=== PATIENT | male | born 1945 | race African-American/Black ===

== ENCOUNTER 2018-09-21 13:35 | Emergency (ER) | payer MEDICARE, MEDICAID ==
[~2018-09-21] VITALS: Ht 182.9 cm; Wt 74.8 kg
--- NOTE | 2018-09-21 13:45 | NUR ---
SAMMI From [facility], WITH SYNCOPAL EPISODE DURING DIALYSIS AND ALOC. TO ER BED 8, HOOKED TO MONITOR, AWAITING MD CLEMENTS.
--- NOTE | 2018-09-21 14:20 | NUR ---
DR. BROWN AT BEDSIDE
[2018-09-21] MEDS ORDERED: IV NS 0.9% 1,000 ML BAG IV ONE (14:30)
[2018-09-21] MEDS ORDERED: ONDANSETRON HCL/PF 4 MG/2 ML VIAL IVP ONE (14:30)
--- NOTE | 2018-09-21 14:35 | NUR ---
CALLED [facility] TO HAVE THEM FAX OVER PT PAPERWORK.
[2018-09-21] MEDS ORDERED: ONDANSETRON HCL/PF 4 MG/2 ML VIAL ONE (14:37)
[2018-09-21 14:38] LABS: BASOPHILS % (AUTO) 0.3 % (0.0-2.0); EOSINOPHILS % (AUTO) 10.8 % (0.0-6.0); HEMATOCRIT 34 % (39-51); HEMOGLOBIN 11.6 g/dL (13.5-17.5); LYMPHOCYTES # (AUTO) 0.9 /CMM (0.8-4.8); LYMPHOCYTES % (AUTO) 15.6 % (20.0-44.0); MEAN CORPUSCULAR HGB CONC 34 g/dl (31.0-36.0); MEAN CORPUSCULAR VOLUME 94 fL (80-96); MONOCYTES # (AUTO) 0.6 /CMM (0.1-1.30); MONOCYTES % (AUTO) 10.7 % (2.0-12.0); NEUTROPHILS # (AUTO) 3.7 /CMM (1.8-8.9); NEUTROPHILS % (AUTO) 62.6 % (43.0-81.0); PLATELET COUNT (AUTO) 230 /CMM (150-450); RED BLOOD CELL COUNT(AUTO) 3.64 MIL/uL (4.5-6.0)
--- NOTE | 2018-09-21 14:53 | NUR ---
URINE SPECIMEN SENT TO LAB
[2018-09-21 15:02] LABS: ALANINE AMINOTRANSFERASE 48 U/L (12-78); ALBUMIN 3.2 g/dL (3.4-5.0); ALKALINE PHOSPHATASE 140 U/L (46-116); ASPARTATE AMINOTRANSFERASE 20 U/L (15-37); BILIRUBIN,DIRECT 0.1 mg/dL (0.0-0.2); BILIRUBIN,TOTAL 0.2 mg/dL (0.2-1.0); CALCIUM, SERUM 8.9 mg/dL (8.5-10.1); CARBON DIOXIDE 30 mmol/L (21-32); CHLORIDE 94 mmol/L (98-107); CREATININE 4.2 mg/dL (0.6-1.3); GLUCOSE 116 mg/dL (74-106); POTASSIUM 3.5 mmol/L (3.5-5.1); SODIUM SERUM 132 mmol/L (136-145); TOTAL PROTEIN, SERUM 7.7 g/dL (6.4-8.2)
[2018-09-21 15:07] LABS: UREA NITROGEN, BLOOD 81 mg/dL (7-18)
[2018-09-21 15:17] LABS: APPEARANCE,URINE Slightly Cloudy (CLEAR); BILIRUBIN,URINE Negative (NEGATIVE); BLOOD, URINE Moderate Ery/uL (NEGATIVE); COLOR,URINE Yellow (YELLOW); KETONES,URINE Negative (NEGATIVE); LEUKOCYTE ESTERASE ,URINE Large (NEGATIVE); NITRITE, URINE Negative (NEGATIVE); PROTEIN,URINE 100 mg/dl (NEGATIVE); UGLUCOSE Negative (NEGATIVE); UROBILINOGEN,URINE 0.2 EU/dL (0.2)
[2018-09-21 15:26] LABS: BACTERIA,URINE Few /HPF (None Seen); MUCUS,URINE Many /LPF (None Seen); SQUAMOUS EPITHELIAL CELL,UR Few /HPF (None Seen); WBC,URINE 81-100 /HPF (0-3)
--- NOTE | 2018-09-21 15:30 | NUR ---
PATIENT TRANSPORTED FOR CT.
--- NOTE | 2018-09-21 15:31 | NUR ---
ELICEO MORGAN (SISTER) CONTACT INFO: [phone]
[2018-09-21] MEDS ORDERED: LEVOFLOXACIN 750 MG /D5W 150ML 150 ML IV ONE (16:48)
[2018-09-21] MEDS ORDERED: HYDROMORPHONE 1 MG/1 ML DISP.SYRIN ONE (16:49)
[2018-09-21] MEDS ORDERED: HYDROMORPHONE INJ 0.5 MG/0.5 ML SYRINGE IV ONE (17:00)
[2018-09-21] MEDS ORDERED: LEVOFLOXACIN 750 MG /D5W 150ML PIGGYBACK IV ONE (17:00)
--- NOTE | 2018-09-21 18:32 | NUR ---
TRANSFER INFO: PT WILL GO TO [facility] VIA [facility] ETA 1900, ACCEPTING MD IS DR AUSTIN CHAMPION. CALL FOR REPORT.
--- NOTE | 2018-09-21 18:43 | NUR ---
REPORT GIVEN TO ROMA JIN OF [facility] ([phone]) EMERGENCY ROOM.
--- NOTE | 2018-09-21 19:17 | NUR ---
REPORT GIVEN TO ANNABEL CAPUTO FOR MEGAN.
--- NOTE | 2018-09-21 19:28 | NUR ---
RECIEVED REPORT FROM ANNABEL HAYNES FOR MEGAN. PT RESTING IN BED WITH EYES OPEN. NO S/S OF ACUTE DISTRESS NOTED. WILL CONITNUE TO MONITOR PT.
--- NOTE | 2018-09-21 19:47 | NUR ---
REPORT GIVEN TO EMS CREW AND RN FOR MEGAN. Patient Tranfers to outside Facility Physician:DR AUSTIN CHAMPION Location:[facility]
[2018-09-21 19:48] VITALS: BP 152/88
== END 2018-09-21 19:50 | disposition short-term general hospital (02) ==
LOC: EDBD 13:37 → ER 13:37
DX: R55 Syncope and collapse (principal); E11.22 Type 2 diabetes mellitus with diabetic chronic kidney disease; N18.6 End stage renal disease; F03.90 Unspecified dementia, unspecified severity, without behavioral disturbance, psychotic disturbance, mood disturbance, and anxiety; N39.0 Urinary tract infection, site not specified; Z99.2 Dependence on renal dialysis; Z93.1 Gastrostomy status; Z86.73 Personal history of transient ischemic attack (TIA), and cerebral infarction without residual deficits
CPT/HCPCS: 36415; 70450; 71045; 74176; 80048; 80076; 81001; 84484; 85025; 87086; 93005; 96361; 96365; 96366; 96375; 99285; A4606; J1170; J1956; J2405; J7030; 81000-TC; 87186-TC

== ENCOUNTER 2019-01-27 14:45 | Emergency (ER) | payer MEDICARE, MEDICAID ==
[~2019-01-27] VITALS: Ht 180.3 cm; Wt 80.3 kg
[2019-01-27] MEDS ORDERED: IV NS 0.9% 500 ML BAG IV ONE (15:00)
--- NOTE | 2019-01-27 15:00 | NUR ---
KAVITHA KRAMER FROM HD CENTER. PT HAD APPROX 1 HR OF HD WHEN HE WENT HYPOTENSIVE. PT IS AA&O AND IS ABLE TO NOD HIS HEAD TO YES AND NO QUESTIONS. PT IS NON VERBAL. PT HAS A DECUB ON THE COCCYX AND ON THE RT BUTTOCK. PT HAS A GTUBE AND RUE FISTULA. PT HAS BILATERAL HEEL PROTECTORS. PT HAS A TRACH TO ARESOLE @ 4L. PT IS ON THE MONITOR AND CONTINUOUS PULSE OX. Addendum: 01/27/19 at 1628 by TMCCORMACK PT IS ON 5L O2 AEROSOLE TO TRACH.
[2019-01-27 15:47] LABS: BASOPHILS % (AUTO) 0.3 % (0.0-2.0); EOSINOPHILS % (AUTO) 4.5 % (0.0-6.0); HEMATOCRIT 21 % (39-51); LYMPHOCYTES # (AUTO) 1.1 /CMM (0.8-4.8); LYMPHOCYTES % (AUTO) 15.9 % (20.0-44.0); MEAN CORPUSCULAR HGB CONC 33 g/dl (31.0-36.0); MEAN CORPUSCULAR VOLUME 100 fL (80-96); MONOCYTES # (AUTO) 0.9 /CMM (0.1-1.30); MONOCYTES % (AUTO) 13.3 % (2.0-12.0); NEUTROPHILS # (AUTO) 4.5 /CMM (1.8-8.9); PLATELET COUNT (AUTO) 298 /CMM (150-450); RED BLOOD CELL COUNT(AUTO) 2.13 MIL/uL (4.5-6.0); WHITE BLOOD COUNT (AUTO) 6.8 K/uL (4.3-11.0)
[2019-01-27 16:00] LABS: ALANINE AMINOTRANSFERASE 20 U/L (12-78); ALBUMIN 2.4 g/dL (3.4-5.0); ALKALINE PHOSPHATASE 144 U/L (46-116); ASPARTATE AMINOTRANSFERASE 23 U/L (15-37); BILIRUBIN,DIRECT 0.1 mg/dL (0.0-0.2); BILIRUBIN,TOTAL 0.3 mg/dL (0.2-1.0); CALCIUM, SERUM 8.4 mg/dL (8.5-10.1); CARBON DIOXIDE 31 mmol/L (21-32); CHLORIDE 100 mmol/L (98-107); CREATININE 3.7 mg/dL (0.6-1.3); GLUCOSE 122 mg/dL (74-106); LIPASE 1076 U/L (73-393); POTASSIUM 3.3 mmol/L (3.5-5.1); SODIUM SERUM 138 mmol/L (136-145); TOTAL PROTEIN, SERUM 6.7 g/dL (6.4-8.2); UREA NITROGEN, BLOOD 53 mg/dL (7-18)
--- NOTE | 2019-01-27 16:07 | NUR ---
CALLING [facility] RE: PT BROUGHT IN BY TRANSPORT..
--- NOTE | 2019-01-27 16:30 | NUR ---
DR STEPHENS IS SPEAKING TO THE JAQUELIN KILLIAN.
[2019-01-27 16:37] LABS: BAND % (MANUAL) 1 % (0.0-5.0); EOSINOPHILS % (MANUAL) 2 % (0-4); LYMPHOCYTES % (MANUAL) 21 % (16-48); MONOCYTES % (MANUAL) 10 % (0-11.0); NEUTROPHILS % (MANUAL) 66 (42-76)
--- NOTE | 2019-01-27 16:48 | NUR ---
PT APPEARS TO BE RESTING COMFORTABLY WITH NO S/S OF PAIN OR DISTRESS.
--- NOTE | 2019-01-27 17:07 | NUR ---
PT'S BP IS 85/47, IS AWARE. PT IS SLEEPING AND EASILY AROUSED. PT NODDED THAT HE WAS OK AND WANTED TO SLEEP. PT HAS HR 98 AND O2 SAT IS 98%. RESP ARE 12. YARD CLEANER IS AT THE BEDSIDE FOR TYPE AND SCREEN DRAW.
--- NOTE | 2019-01-27 17:14 | NUR ---
CALL BACK FROM [facility], VS UPDATED, STILL WAITING ON ACCEPTING HOSPITAL
--- NOTE | 2019-01-27 18:20 | NUR ---
TRANSFER INFO FOR [place]: GOING TO [facility], BED 5608 TELE. NUMBER FOR REPORT [phone]. ETA FOR TRANSPORT 1914
[2019-01-27] MEDS ORDERED: PHENYLEPHRINE 10 MG/ML VIAL ONE ×2 (18:22→19:01)
--- NOTE | 2019-01-27 18:35 | NUR ---
PT HAS BLACK TARRY LOOSE STOOL.
--- NOTE | 2019-01-27 18:36 | NUR ---
PT WAS CLEANED AND NEW DIAPER APPLIED. PT WAS ADJUSTED IN THE BED.
[2019-01-27] MEDS ORDERED: PHENYLEPHRINE 10 MG/ML VIAL IV ONE (19:00)
--- NOTE | 2019-01-27 19:15 | NUR ---
BLOOD TRANSFUSION STARTED AT THE BEDSIDE. SECOND VERIFICATION BY ANNABEL STEVE
--- NOTE | 2019-01-27 19:25 | NUR ---
NO REACTION NOTED AT THIS TIME.
--- NOTE | 2019-01-27 19:31 | NUR ---
CALLING REPORT TO [facility] BED. REPORT GIVEN TO ANNABEL ELLIS
--- NOTE | 2019-01-27 20:10 | NUR ---
PT FELT LIKE HIS MOUTH WAS DRY, MOISTENED PT'S MOUTH.
--- NOTE | 2019-01-27 20:23 | NUR ---
ANNABEL MENDIETA FROM [facility] CALLED FOR AN UPDATE ON PT AND WHEN THE TRANSPORT IS DUE TO ARRIVE. ETA 2049
[2019-01-27 20:49] VITALS: BP 111/59
--- NOTE | 2019-01-27 20:50 | NUR ---
REPORT GIVEN TO CONTACT LENS FLASHING PUNCHER. [facility] EMT'S ARRIVED.
== END 2019-01-27 21:09 ==
LOC: ER 14:49
DX: E11.22 Type 2 diabetes mellitus with diabetic chronic kidney disease (principal); N18.6 End stage renal disease; E86.0 Dehydration; R55 Syncope and collapse; I95.9 Hypotension, unspecified; D64.9 Anemia, unspecified; K92.2 Gastrointestinal hemorrhage, unspecified; R13.10 Dysphagia, unspecified; R00.0 Tachycardia, unspecified; G30.9 Alzheimer's disease, unspecified; F02.80 Dementia in other diseases classified elsewhere, unspecified severity, without behavioral disturbance, psychotic disturbance, mood disturbance, and anxiety; Z85.528 Personal history of other malignant neoplasm of kidney; Z93.0 Tracheostomy status; Z99.2 Dependence on renal dialysis; Z93.1 Gastrostomy status
CPT/HCPCS: 36415; 71045; 80048; 80076; 82962; 83690; 84484; 85025; 86850; 86921; 87040; 93005; 99291; J2370; J7030; J7040; P9016-BL

== ENCOUNTER 2019-04-05 11:41 | Inpatient (IN) | payer MEDICAID, MEDICARE ==
[~2019-04-05] VITALS: Ht 182.9 cm; Wt 81.6 kg
[2019-04-05] VITALS (7 sets, daily range): BP systolic 88–119; BP diastolic 49–55
--- NOTE | 2019-04-05 11:55 | NUR ---
PATIENT BIB RA FROM [facility]. PER REPORT, PATIENT WAS SUPPOSED TO BE TRANSFERRED TO DIALYSIS CENTER BUT PATIENT NOTED TO BE TACHYCARDIC, HR 120'S. PATIENT ON TRACH, SHILEY XLT 6, ON COOL AEROSOL 5L O2 SAT 100%. GT SITE NOTED ON ABD. AV SHUNT NOTED ON MAHESH. PATIENT CONNECTED TO MONITOR. RT AT BEDSIDE
[2019-04-05 12:13] LABS: BASOPHILS % (AUTO) 0.3 % (0.0-2.0); EOSINOPHILS % (AUTO) 5.2 % (0.0-6.0); HEMATOCRIT 37 % (39-51); HEMOGLOBIN 12.1 g/dL (13.5-17.5); LYMPHOCYTES # (AUTO) 0.5 /CMM (0.8-4.8); LYMPHOCYTES % (AUTO) 3.5 % (20.0-44.0); MEAN CORPUSCULAR HGB CONC 33 g/dl (31.0-36.0); MEAN CORPUSCULAR VOLUME 90 fL (80-96); MONOCYTES # (AUTO) 0.9 /CMM (0.1-1.30); MONOCYTES % (AUTO) 5.8 % (2.0-12.0); NEUTROPHILS # (AUTO) 13.1 /CMM (1.8-8.9); NEUTROPHILS % (AUTO) 85.2 % (43.0-81.0); PLATELET COUNT (AUTO) 293 /CMM (150-450); RED BLOOD CELL COUNT(AUTO) 4.13 MIL/uL (4.5-6.0); WHITE BLOOD COUNT (AUTO) 15.4 K/uL (4.3-11.0)
[2019-04-05] MEDS ORDERED: LACT20SO4 PO (12:13)
[2019-04-05] MEDS ORDERED: SEVE800T8 GT (12:13)
[2019-04-05] MEDS ORDERED: GLYC1TAB12 GT (12:13)
[2019-04-05] MEDS ORDERED: HYDR-3974 GT (12:13)
[2019-04-05] MEDS ORDERED: ACET-73 PO (12:13)
[2019-04-05] MEDS ORDERED: OMEP1PAC5 PO (12:13)
[2019-04-05] MEDS ORDERED: SUCR1ORA PO (12:13)
[2019-04-05] MEDS ORDERED: ATOR10TA GT (12:13)
[2019-04-05] MEDS ORDERED: DEXT15DR6 OP (12:13)
[2019-04-05] MEDS ORDERED: DONE10TA44 GT (12:13)
[2019-04-05] MEDS ORDERED: INSU100V SQ (12:13)
[2019-04-05] MEDS ORDERED: FERR325T23 GT (12:13)
[2019-04-05] MEDS ORDERED: ONDA4TAB10 PO (12:13)
--- NOTE | 2019-04-05 12:16 | NUR ---
IV LINE ESTABLISHED ON LFA g20. STAMP CLASSIFIER AT BEDSIDE, BLOOD COLLECTED AND SENT TO LAB
[2019-04-05] MEDS ORDERED: HEPA100D33 IJ (12:17)
[2019-04-05] MEDS ORDERED: ZINC220C8 PO (12:17)
[2019-04-05] MEDS ORDERED: MIDO10TA PO (12:17)
[2019-04-05] MEDS ORDERED: NUT.237L67 GT (12:17)
[2019-04-05] MEDS ORDERED: IPRA0.2S49 IH (12:17)
[2019-04-05] MEDS ORDERED: PROT946L PO (12:18)
[2019-04-05 12:23] LABS: CARBON DIOXIDE 32 mmol/L (21-32); CHLORIDE 91 mmol/L (98-107); CREATININE 5.2 mg/dL (0.6-1.3); GLUCOSE 158 mg/dL (74-106); POTASSIUM 3.9 mmol/L (3.5-5.1); SODIUM SERUM 129 mmol/L (136-145)
[2019-04-05 12:29] LABS: ALANINE AMINOTRANSFERASE 38 U/L (12-78); ALBUMIN 3.5 g/dL (3.4-5.0); ALKALINE PHOSPHATASE 211 U/L (46-116); ASPARTATE AMINOTRANSFERASE 20 U/L (15-37); BILIRUBIN,DIRECT 0.1 mg/dL (0.0-0.2); BILIRUBIN,TOTAL 0.3 mg/dL (0.2-1.0); TOTAL PROTEIN, SERUM 8.8 g/dL (6.4-8.2); UREA NITROGEN, BLOOD 95 mg/dL (7-18)
[2019-04-05] MEDS ORDERED: ACETAMINOPHEN 650 MG/SUPP.RECT RC ONE ×2 (13:18→13:30)
[2019-04-05] MEDS ORDERED: PIPERACILLIN /TAZOBACTAM 3.375 G in IV D5W 50 ML IV ONE (13:30)
--- NOTE | 2019-04-05 13:41 | NUR ---
CALLED [facility] SPOKE WITH LUCHO, EXPECTING A CALL BACK FROM [facility]
--- NOTE | 2019-04-05 14:01 | NUR ---
[facility] FOR UPDATE
--- NOTE | 2019-04-05 14:21 | NUR ---
JAQUELIN HAMILTON CALLED BACK,. ON THE PHONE WITH DR JARAMILLO.
[2019-04-05] MEDS ORDERED: VANCOMYCIN 1 GM in IV D5W 250 ML IV ONE (14:30)
[2019-04-05] MEDS ORDERED: IV NS 0.9% 1,000 ML IV ONE ×2 (14:30→16:30)
--- NOTE | 2019-04-05 15:02 | NUR ---
RT NOTE PT RECEIVED ON O2, SX'ED x 3, AWAITING TRANSFER TO [facility] PER RN.
--- NOTE | 2019-04-05 16:41 | NUR ---
ICU 263
--- NOTE | 2019-04-05 17:20 | NUR ---
PLACED CALL TO SISTER YVON MORGAN. VERIFIED INFORMED CONSENT FOR PICC LINE INSERTION OBTAINED BY FROM SISTER AND WITNESSED BY 2 LICENSED STAFF. PICC LINE NURSE PRESENT AT UNIT AND AWARE. WILL CONTINUE TO MONITOR
[2019-04-05] MEDS ORDERED: ACETAMINOPHEN 325 MG TABLET PO PRN (17:30)
[2019-04-05] MEDS ORDERED: ONDANSETRON HCL/PF 4 MG/2 ML VIAL IVP PRN (17:30)
[2019-04-05] MEDS ORDERED: IV NS 0.9% 100 ML IV ONE (17:30)
[2019-04-05] MEDS ORDERED: FEE PK DOSING 1 MIN EA MC ONE (17:36)
--- NOTE | 2019-04-05 17:56 | NUR ---
CALLED ICU AND GAVE REPORT TO LYSSA RN
[2019-04-05] MEDS ORDERED: DEXTROSE 50%-WATER 50 ML DISP.SYRIN IV PRN (18:00)
[2019-04-05] MEDS ORDERED: INSULIN REGULAR, HUMAN 100 UNIT/ML 3 ML VIAL SQ PRN (18:00)
--- NOTE | 2019-04-05 18:43 | NUR ---
PATIENT TRANSFERRED TO ICU ROOM 263 VIA ACLS PROTOCOL. RECEIVING RN AT BEDSIDE. RT AT BEDSIDE.
--- NOTE | 2019-04-05 18:50 | NUR ---
RN NOTES RECEIVED PATIENT FROM ER VIA GURNEY, CAME IN DUE TO HYPOTENSION UNDER THE CARE OF DR. GALAN. PATIENT TRANSFERRED TO BED. NOTED TO BE A/O X1-2, NONVERBAL, TRACH DEPENDENT WITH OXYGEN ON 5LPM, NO SOB NOTED AT THIS TIME, WITH COPIOUS SECRETION. PATIENT ATTACHED TO MONITOR. BLOOD PRESSURE NOTED AT 94/50MMHG, HR AT 104 RR AT 23 AND SATS AT94%AT THIS TIME. PATIENT CLEANED HE HAD A LARGE BM. SKIN ASSESSMENT DONE AND PICTURES WERE TAKEN. PATIENT THEN KEPT CLEANED AND WARMTH. HOB ELEVATED. SAFETY MEASURES PUT IN PLACE, CALL LIGHT PLACED WITHIN EASY REACH
--- NOTE | 2019-04-05 18:50 | NUR ---
RT NOTES TRANSPORTED PATIENT FROM ER TO ICU. TRACH TUBE IN PLACE, PATENT, AND SECURED. SX LARGE THICK YELLOW SECRETIONS. PLACED ON 35% CA. TOLERATE WELL AT THIS TIME. Addendum: 04/05/19 at 1852 by RICARDO RAMIREZ RT Amended: Links added.
--- NOTE | 2019-04-05 19:19 | NUR ---
RN NOTES ENDORSED PATIENT TO ANNABEL BOOTHE FOR CONTINUITY OF CARE
--- NOTE | 2019-04-05 19:55 | NUR ---
INSTITUTIONAL RESEARCH COORDINATOR. INITIAL ASSESSMENT, RECEIVED THE PT REST ON THE BED, AWAKE, NONVERBAL. TRACH INTACT, SHILEY#6,OXYGEN T PIECE CONNECTED, REFRIGERATOR TESTER SHOWING S TACH. TEMPERATURE 100. IV LT AHD 20G. LT UPPER ARM MID LINE. SALINE LOCK. HOB ELEVATED, WILL CONTINUE TO MONITOR VITALS.
[2019-04-05] MEDS ORDERED: NOREPINEPHRINE 16 MG in IV D5W 500 ML IV PRN (20:30)
[2019-04-05] MEDS: PIPERACILLIN /TAZOBACTAM 2.25 G in IV D5W 50 ML IV SCH (21:14)
[2019-04-05] MEDS: BLOOD SUGAR DIAGNOSTIC 1 EACH STRIP IN SCH (23:59)
[2019-04-06] VITALS (28 sets, daily range): BP systolic 86–147; BP diastolic 46–68
[2019-04-06] MEDS: BLOOD SUGAR DIAGNOSTIC 1 EACH STRIP IN SCH ×3 (00:33→12:19)
[2019-04-06 04:52] LABS: EOSINOPHILS % (AUTO) 0.9 % (0.0-6.0); HEMATOCRIT 32 % (39-51); HEMOGLOBIN 10.8 g/dL (13.5-17.5); LYMPHOCYTES # (AUTO) 0.9 /CMM (0.8-4.8); LYMPHOCYTES % (AUTO) 5.4 % (20.0-44.0); MEAN CORPUSCULAR HGB CONC 34 g/dl (31.0-36.0); MEAN CORPUSCULAR VOLUME 90 fL (80-96); MONOCYTES # (AUTO) 1.1 /CMM (0.1-1.30); MONOCYTES % (AUTO) 6.5 % (2.0-12.0); NEUTROPHILS # (AUTO) 14.4 /CMM (1.8-8.9); NEUTROPHILS % (AUTO) 87.2 % (43.0-81.0); PLATELET COUNT (AUTO) 266 /CMM (150-450); RED BLOOD CELL COUNT(AUTO) 3.55 MIL/uL (4.5-6.0); WHITE BLOOD COUNT (AUTO) 16.5 K/uL (4.3-11.0)
--- NOTE | 2019-04-06 05:05 | NUR ---
ENGRAVER MACHINE. AM CARE, ORAL CARE, BED BATH GIVEN, SOLOMON LERNER, REMAINING SAME OXYGEN TOLERATED WELL. SAT 98%, NO ACUTE DISTRESS NOTED. WEAPONS OFFICER [employer]IVITY SHOWING NSR. IV RT HAND LEVOPHED 2MCG/MIN. HOB ELEVATED, WILL CONTINUE TO MONITOR VITALS.
[2019-04-06 05:16] LABS: CALCIUM, SERUM 9.2 mg/dL (8.5-10.1); CARBON DIOXIDE 26 mmol/L (21-32); CHLORIDE 94 mmol/L (98-107); CREATININE 5.6 mg/dL (0.6-1.3); GLUCOSE 112 mg/dL (74-106); MAGNESIUM 2.8 mg/dL (1.8-2.4); PHOSPHORUS 1.8 mg/dL (2.5-4.9); POTASSIUM 3.8 mmol/L (3.5-5.1); SODIUM SERUM 130 mmol/L (136-145)
[2019-04-06 05:19] LABS: UREA NITROGEN, BLOOD 102 mg/dL (7-18)
[2019-04-06 05:21] LABS: THYROID STIMULATING HORMONE 1.126 uIU/mL (0.358-3.74)
[2019-04-06] MEDS: PIPERACILLIN /TAZOBACTAM 2.25 G in IV D5W 50 ML IV SCH ×2 (05:58→12:19)
--- NOTE | 2019-04-06 07:25 | NUR ---
RETAIL SALES LEAD INITIAL NOTES PT RECEIVED FROM NIGHTSHIFT RN IN STABLE CONDITION. PT NONVERBAL BUT ABLE TO MOUTH WORDS AND MAKE NEEDS KNOWN THROUGH ARM MOTIONS. HE FOLLOWS SIMPLE COMMANDS WHEN PROMPTED. NO SOB OR ACUTE SIGNS OF DISTRESS. BREATHING IS EVEN AND UNLABORED. TRACH NOTED (SHILEY 6) CONNECTED TO T-PIECE WITH AN FIO2 SET TO 35%. PT CURRENTLY SATING AT 96%. VSS AT THIS TIME. PT TITRATED OFF LEVO DRIP BY PREVIOUS RN. HE IS NOTED TO BE SINUS TACH ON THE MONITOR WITH A CURRENT HR OF 104. RIGHT UPPER ARM AV SHUNT NOTED TO HD ACCESS. LEFT UPPER ARM MIDLINE ALONG WITH TWO LEFT FA 20G PERIPHERAL IVS NOTED. ALL NOTED TO BE PATENT AND INTACT. NO REDNESS OR SIGNS OF INFILTRATION NOTED. GTUBE NOTED TO BE PATENT AND INTACT. PLACEMENT VERIFIED VIA AUSCULTATION. BED IN LOW LOCKED POSITION, SIDE RIALS UP X2, CALL LIGHT WITHIN REACH. WILL CONTINUE TO MONITOR
[2019-04-06] MEDS ORDERED: Z GUARD REMEDY 2 OZ OINT TP PRN (08:00)
--- NOTE | 2019-04-06 08:24 | NUR ---
WOUND CARE CONSULT: PT PRESENTS WITH SACRAL SCARRING WHICH EXTENDS TO BUTTOCKS, BILATERAL LOWER BUTTOCK INCONTINENCE ASSOCIATED SKIN DAMAGE OVER SCARRING, SCARRING TO BILATERAL LOWER LEGS, SCROTAL EDEMA WITH RASH TO PERINEUM, GROIN, INNER THIGH AREAS, PRESENT ON ADMISSION. RECOMMENDATIONS MADE FOR SKIN PROTECTION AND CARE. DISCUSSED WITH NURSING STAFF. PT ON [facility] B[facility]. WILL SEE PRN. KILLIAN IN AGREEMENT WITH PLAN OF CARE. CURRENT STEFAN SCORE IS 12. Addendum: 04/06/19 at 0826 by LYRIC HARRIS WNDNU Amended: Links added.
[2019-04-06] MEDS ORDERED: CLOTRIMAZOLE 1% 15 GM TUBE TP SCH (09:00)
[2019-04-06] MEDS ORDERED: Z GUARD REMEDY 2 OZ OINT TP SCH (09:00)
[2019-04-06] MEDS ORDERED: PANTOPRAZOLE 40 MG VIAL IV SCH (09:00)
[2019-04-06] MEDS ORDERED: VANCOMYCIN 1 GM in IV D5W 250 ML IV ONE (12:30)
--- NOTE | 2019-04-06 12:30 | NUR ---
DINING ROOM SERVER NOTES: TRANSFER COORDINATION CALL RECEIVED FROM [facility] TRANSFER CURED MEATS SUPERVISOR. PT WILL BE TRANSFERRED TODAY AT 1400 VIA [facility] TO [facility] UN[facility] ROOM 5702.
--- NOTE | 2019-04-06 14:24 | NUR ---
STRIKE OUT MACHINE OPERATORDOOR INSTALLER NOTES PT TRANSFERRED TO [facility] VIA ACLS PROTOCOL. ALL NEEDS ANTICIPATED FOR AND MET DURING SHIFT. ALL DUE MEDS GIVEN. REPORT CALLED AND GIVEN TO ANNABEL ANGELES. INVASIVE LINES REMAINED PATENT AND INTACT. VSS PRIOR TO TRANSFER.
[2019-04-06] MEDS ORDERED: VANCOMYCIN 500 MG in IV D5W 100 ML IV PRN (18:00)
== END 2019-04-06 14:31 | disposition short-term general hospital (02) | DRG 720 ==
LOC: ER 11:44 → ICU 16:47
PROVIDERS: ADMIT Student in an Organized Health Care Education/Training Program; ATTEND Student in an Organized Health Care Education/Training Program
PROC: 02HV33Z Insertion of Infusion Device into Superior Vena Cava, Percutaneous Approach (ICD-10-PCS; principal; 2019-04-05)
PROC: B548ZZA Ultrasonography of Superior Vena Cava, Guidance (ICD-10-PCS; 2019-04-05)
DX: A41.9 Sepsis, unspecified organism (principal); J69.0 Pneumonitis due to inhalation of food and vomit; R65.21 Severe sepsis with septic shock; G93.40 Encephalopathy, unspecified; Z93.0 Tracheostomy status; R13.10 Dysphagia, unspecified; I12.0 Hypertensive chronic kidney disease with stage 5 chronic kidney disease or end stage renal disease; N18.6 End stage renal disease; E11.22 Type 2 diabetes mellitus with diabetic chronic kidney disease; D64.9 Anemia, unspecified; G30.9 Alzheimer's disease, unspecified; F02.80 Dementia in other diseases classified elsewhere, unspecified severity, without behavioral disturbance, psychotic disturbance, mood disturbance, and anxiety; E87.1 Hypo-osmolality and hyponatremia; R65.20 Severe sepsis without septic shock; Z99.2 Dependence on renal dialysis; E86.1 Hypovolemia; Z85.528 Personal history of other malignant neoplasm of kidney; Z79.4 Long term (current) use of insulin; L98.429 Non-pressure chronic ulcer of back with unspecified severity
CPT/HCPCS: 31720; 36415; 71045-TC; 80048-TC; 80061-TC; 80076-TC; 80202-TC; 82962-TC; 83605-TC; 83735-TC; 84100-TC; 84443-TC; 84484-TC; 85025-TC; 85730-TC; 87040-TC; 87081-TC; 94664-TC; 94799-TC; C1751; C9113; G0378; J1815; J2543; J3370; J7030; J7050; J7060

== ENCOUNTER 2019-12-15 12:36 | Emergency (ER) | payer MEDICARE, MEDICAID ==
[~2019-12-15] VITALS: Ht 182.9 cm; Wt 89.8 kg
[~2019-12-15 12:36] MED LIST: ACET-73 PO; ATOR10TA GT; DEXT15DR6 OP; DONE10TA44 GT; FERR325T23 GT; GLYC1TAB12 GT; HEPA100D33 IJ; HYDR-3974 GT; INSU100V SQ; IPRA0.2S49 IH; LACT20SO4 GT; MIDO10TA PO; NUT.237L67 GT; OMEP1PAC5 PO; ONDA-97 PO; PROT946L PO; SEVE800T8 GT; SUCR1ORA15 PO; ZINC1CAP3 PO
--- NOTE | 2019-12-15 12:38 | NUR ---
MAURY MART 87 FROM DIALYSIS CENTER,BECAME UNRESPONSIVE INTERMEDIATE THRU HIS TREATMENT; pt to bed 5, pt alert, follows simple commands, -sob, nad noted, vss, pending md bush
--- NOTE | 2019-12-15 13:10 | NUR ---
RT received pt in er. trached with shiley 6. vent settings: AC 12 450 35% +5. hob at 30 degrees. ambu bag at head of bed. minimal white thick secretions suctioned. no apparent respiratory distress noted. awaiting md orders. will continue to monitor.
[2019-12-15 13:21] LABS: BASOPHILS # (AUTO) 0.1 /CMM (0.0-0.2); BASOPHILS % (AUTO) 0.6 % (0.0-2.0); HEMATOCRIT 31 % (39-51); HEMOGLOBIN 9.9 g/dL (13.5-17.5); LYMPHOCYTES # (AUTO) 0.7 /CMM (0.8-4.8); MEAN CORPUSCULAR HGB CONC 32 g/dl (31.0-36.0); MEAN CORPUSCULAR VOLUME 97 fL (80-96); MONOCYTES # (AUTO) 0.8 /CMM (0.1-1.30); MONOCYTES % (AUTO) 8.2 % (2.0-12.0); NEUTROPHILS # (AUTO) 7.7 /CMM (1.8-8.9); NEUTROPHILS % (AUTO) 79.2 % (43.0-81.0); PLATELET COUNT (AUTO) 312 /CMM (150-450); RED BLOOD CELL COUNT(AUTO) 3.15 MIL/uL (4.5-6.0); WHITE BLOOD COUNT (AUTO) 9.7 K/uL (4.3-11.0)
[2019-12-15 13:30] LABS: CALCIUM, SERUM 9.5 mg/dL (8.5-10.1); CARBON DIOXIDE 26 mmol/L (21-32); CHLORIDE 96 mmol/L (98-107); CREATININE 3.8 mg/dL (0.6-1.3); GLUCOSE 159 mg/dL (74-106); POTASSIUM 3.5 mmol/L (3.5-5.1); SODIUM SERUM 131 mmol/L (136-145); UREA NITROGEN, BLOOD 66 mg/dL (7-18)
[2019-12-15] MEDS ORDERED: SENN-168 GT (13:34)
[2019-12-15] MEDS ORDERED: FAMO20TA8 GT (13:34)
[2019-12-15] MEDS ORDERED: POLY15DR40 EACHEYE (13:34)
[2019-12-15] MEDS ORDERED: NITR0.4T48 SL (13:34)
[2019-12-15] MEDS ORDERED: ACET-868 GT (13:34)
[2019-12-15] MEDS ORDERED: AMIN30LI27 GT (13:34)
[2019-12-15] MEDS ORDERED: SEVE0.8P3 GT (13:34)
[2019-12-15] MEDS ORDERED: GLUC1KIT IM (13:37)
[2019-12-15 13:40] LABS: ALANINE AMINOTRANSFERASE 57 U/L (12-78); ALBUMIN 2.5 g/dL (3.4-5.0); ALKALINE PHOSPHATASE 295 U/L (46-116); ASPARTATE AMINOTRANSFERASE 42 U/L (15-37); BILIRUBIN,DIRECT 0.1 mg/dL (0.0-0.2); BILIRUBIN,TOTAL 0.4 mg/dL (0.2-1.0); TOTAL PROTEIN, SERUM 8.6 g/dL (6.4-8.2)
[2019-12-15 13:46] LABS: SERUM AMMONIA 17 umol/L (11-32)
--- NOTE | 2019-12-15 14:20 | NUR ---
CALLED [facility] [phone]
[2019-12-15 15:00] VITALS: BP 126/65
--- NOTE | 2019-12-15 15:42 | NUR ---
CALLED JAQUELIN, NO UPDATE
--- NOTE | 2019-12-15 16:03 | NUR ---
TRANSFER INFO: [facility] RACE CAR DRIVER FOR REPORT [phone], Jonny MADSEN. [facility] ETA 1644
--- NOTE | 2019-12-15 16:38 | NUR ---
report given to rolando gordon at [facility] for robert
--- NOTE | 2019-12-15 16:56 | NUR ---
pt left via private ambulance --prn to [facility] er. pt left in stable condition, report given to cct nurse. transported wit 2emts 1 cct rn
== END 2019-12-15 16:56 | disposition short-term general hospital (02) ==
LOC: ER 12:40
DX: E11.22 Type 2 diabetes mellitus with diabetic chronic kidney disease (principal); N18.6 End stage renal disease; I69.359 Hemiplegia and hemiparesis following cerebral infarction affecting unspecified side; J96.10 Chronic respiratory failure, unspecified whether with hypoxia or hypercapnia; D64.9 Anemia, unspecified; E87.1 Hypo-osmolality and hyponatremia; R74.0 Nonspecific elevation of levels of transaminase and lactic acid dehydrogenase [LDH]; E88.09 Other disorders of plasma-protein metabolism, not elsewhere classified; I44.0 Atrioventricular block, first degree; G30.9 Alzheimer's disease, unspecified; F02.80 Dementia in other diseases classified elsewhere, unspecified severity, without behavioral disturbance, psychotic disturbance, mood disturbance, and anxiety; I25.10 Atherosclerotic heart disease of native coronary artery without angina pectoris; Z99.2 Dependence on renal dialysis; Z98.890 Other specified postprocedural states; Z88.6 Allergy status to analgesic agent; Z79.899 Other long term (current) drug therapy
CPT/HCPCS: 36415; 70450-TC; 71045-TC; 80048-TC; 80076-TC; 82140-TC; 84484-TC; 85025-TC; 85730-TC

== ENCOUNTER 2020-02-14 12:46 | Emergency (ER) | payer MEDICARE, OTHER ==
[~2020-02-14] VITALS: Ht 167.6 cm; Wt 97.1 kg
[~2020-02-14 12:46] MED LIST changes: -ACET-73 PO; +ACET-868 GT; +AMIN30LI27 GT; -DEXT15DR6 OP; +FAMO20TA8 GT; +GLUC1KIT IM; -GLYC1TAB12 GT; -HEPA100D33 IJ; -INSU100V SQ; -IPRA0.2S49 IH; -MIDO10TA PO; +NITR0.4T48 SL; -OMEP1PAC5 PO; -ONDA-97 PO; +POLY15DR40 EACHEYE; -PROT946L PO; +SENN-261 GT; +SEVE0.8P3 GT; -SEVE800T8 GT; -SUCR1ORA15 PO; -ZINC1CAP3 PO
[2020-02-14] MEDS ORDERED: INSU100V7 SQ (13:04)
[2020-02-14] MEDS ORDERED: MIDO10TA GT (13:04)
[2020-02-14] MEDS ORDERED: FOLI0.8T2 GT (13:04)
[2020-02-14] MEDS ORDERED: ZINC220T4 GT (13:04)
[2020-02-14] MEDS ORDERED: CHOL400T11 GT (13:04)
[2020-02-14] MEDS ORDERED: ASCO-310 GT (13:04)
[2020-02-14] MEDS ORDERED: DOCU100C36 GT (13:04)
[2020-02-14] MEDS ORDERED: INSU100V9 SQ (13:08)
--- NOTE | 2020-02-14 13:11 | NUR ---
NANI FROM HD [facility] [address]. TO ER BED 5. AAOX1. NOT IN RESP DISTRESS, PT IS TRACH AND VENT DEPENDENT. BEDBOUND. PER TRANSPORT NURSE THAT WAS WITH PT, PT GESTURED THAT HE HAVE PAIN ON HIS ABDOMEN BY POINTING, ENROUTE TO HD. BY THE TIME HE GOT TO THE HD, PT IS POINTING TO HIS CHEST. PT IS NON VERBAL. PT IS NOTED WITH GT SITE. MD WAS AT BEDSIDE. IV LINE OBTAIN ON L HAND 22G. EKG DONE. XRAY AT BEDSIDE
--- NOTE | 2020-02-14 13:15 | NUR ---
VENT SETING: AC16 550VT 40% +5PEEP
--- NOTE | 2020-02-14 13:26 | NUR ---
RT PT TRACHED INTACT SECURED SHILEY 6 XLT CAME VIA EMS FOR CHEST PAIN ON FOLLOWING VENT SETTINGS AC 16 550 40% +5 VENT PLUGGED IN RED OUTLET BAG MASK AT HOB W/ SPARE TRACH, NO RESP DISTRESS WILL CONT TO MONITOR Addendum: 02/14/20 at 1332 by SHAHRZAD CHILDERS RT Amended: Links added.
[2020-02-14 13:37] LABS: BASOPHILS % (AUTO) 0.5 % (0.0-2.0); EOSINOPHILS % (AUTO) 11.4 % (0.0-6.0); HEMATOCRIT 39 % (39-51); HEMOGLOBIN 12.4 g/dL (13.5-17.5); LYMPHOCYTES # (AUTO) 1.2 /CMM (0.8-4.8); LYMPHOCYTES % (AUTO) 20.4 % (20.0-44.0); MEAN CORPUSCULAR HGB CONC 31 g/dl (31.0-36.0); MEAN CORPUSCULAR VOLUME 97 fL (80-96); MONOCYTES # (AUTO) 0.7 /CMM (0.1-1.30); MONOCYTES % (AUTO) 11.8 % (2.0-12.0); NEUTROPHILS # (AUTO) 3.2 /CMM (1.8-8.9); NEUTROPHILS % (AUTO) 55.9 % (43.0-81.0); PLATELET COUNT (AUTO) 239 /CMM (150-450); RED BLOOD CELL COUNT(AUTO) 4.04 MIL/uL (4.5-6.0); WHITE BLOOD COUNT (AUTO) 5.7 K/uL (4.3-11.0)
[2020-02-14 13:53] LABS: ALANINE AMINOTRANSFERASE 19 U/L (12-78); ALBUMIN 3.2 g/dL (3.4-5.0); ALKALINE PHOSPHATASE 209 U/L (46-116); ASPARTATE AMINOTRANSFERASE 13 U/L (15-37); BILIRUBIN,DIRECT 0.1 mg/dL (0.0-0.2); BILIRUBIN,TOTAL 0.3 mg/dL (0.2-1.0); CALCIUM, SERUM 10.4 mg/dL (8.5-10.1); CARBON DIOXIDE 26 mmol/L (21-32); CHLORIDE 98 mmol/L (98-107); CREATININE 5.7 mg/dL (0.6-1.3); GLUCOSE 104 mg/dL (74-106); LIPASE 312 U/L (73-393); POTASSIUM 4.2 mmol/L (3.5-5.1); SODIUM SERUM 133 mmol/L (136-145); TOTAL PROTEIN, SERUM 8.7 g/dL (6.4-8.2)
[2020-02-14 13:55] LABS: UREA NITROGEN, BLOOD 93 mg/dL (7-18)
--- NOTE | 2020-02-14 15:52 | NUR ---
CALLED [facility] [phone] MD WILL CALL OUR DOCTOR.
--- NOTE | 2020-02-14 16:40 | NUR ---
PT GOING TO [facility] ER. TRANSPORT ETA 1730 ALS BY [facility]. CALL [phone] FOR REPORT.
--- NOTE | 2020-02-14 16:47 | NUR ---
REPORT GIVEN TO ANNABEL TEJEDA FOR MEGAN AT THE [facility].
[2020-02-14] MEDS ORDERED: ACETAMINOPHEN 650 MG/20.3 ML UDC ONE (16:52)
--- NOTE | 2020-02-14 16:55 | NUR ---
pt c/o l foot pain. made aware. order received to give tylenol 650mg via gt x 1. noted and carried out.
--- NOTE | 2020-02-14 16:57 | NUR ---
spoke with sister over the phone for update
[2020-02-14] MEDS ORDERED: ACETAMINOPHEN 160 MG/5 ML GT ONE (17:00)
--- NOTE | 2020-02-14 17:17 | NUR ---
SPOKE WITH JAQUELIN MUNGUIA FOR VENT SETTING UPDATE.
[2020-02-14] MEDS ORDERED: CLOPIDOGREL BISULFATE 75 MG TABLET ONE (17:18)
--- NOTE | 2020-02-14 17:18 | NUR ---
[facility] ETA 1800
[2020-02-14] MEDS ORDERED: CLOPIDOGREL BISULFATE 75 MG TABLET GT ONE (17:30)
[2020-02-14 18:22] VITALS: BP 99/62
--- NOTE | 2020-02-14 18:24 | NUR ---
[id number] AT BEDSIDE FOR PT TRANSPORT TO [facility]. REPORT GIVEN TO DOMONIQUE, COP BREAKER FOR MEGAN.
--- NOTE | 2020-02-14 18:40 | NUR ---
PT LEFT ON GURNEY WITH 1 RN AND 2 AMBULANCE STAFF AT BEDSIDE. ALL BELONGINGS W/ PT WELL AT VENTILATOR, SUCTION AND TUBING SUPPLIES.
== END 2020-02-14 18:42 | disposition short-term general hospital (02) ==
LOC: ER 12:50
DX: R07.89 Other chest pain (principal); R10.9 Unspecified abdominal pain; I12.0 Hypertensive chronic kidney disease with stage 5 chronic kidney disease or end stage renal disease; E11.22 Type 2 diabetes mellitus with diabetic chronic kidney disease; N18.6 End stage renal disease; Z99.2 Dependence on renal dialysis; E78.5 Hyperlipidemia, unspecified; I25.10 Atherosclerotic heart disease of native coronary artery without angina pectoris; Z98.890 Other specified postprocedural states; Z88.6 Allergy status to analgesic agent; Z79.4 Long term (current) use of insulin; Z79.899 Other long term (current) drug therapy; Z93.1 Gastrostomy status
CPT/HCPCS: 36415; 71045-TC; 80048-TC; 80076-TC; 83605-TC; 83690-TC; 84484-TC; 85025-TC; 85730-TC; 87040-TC

== ENCOUNTER 2020-04-07 14:37 | Emergency (ER) | payer MEDICARE, MEDICAID ==
[~2020-04-07] VITALS: Ht 167.6 cm; Wt 99.3 kg
[~2020-04-07 14:37] MED LIST changes: +ASCO-310 GT; +CHOL400T11 GT; +DOCU100C36 GT; +FOLI0.8T2 GT; +INSU100V7 SQ; +INSU100V9 SQ; +MIDO10TA GT; +ZINC220T4 GT
[2020-04-07] MEDS ORDERED: IV NS 0.9% 1,000 ML BAG IV ONE ×3 (15:00→18:00)
--- NOTE | 2020-04-07 15:18 | NUR ---
wilber, from dialysis center, came in due to hypotension 80/40. PT NON VERBAL, EYES OPEN. ON VENT, RR EVEN & UNLABORED. PT SEEN & EVAL'D BY DR. ZHONG. PLACED ON HOTEL SUPPLIES SALESPERSON, SR. PT STABLE, NAD NOTED AT THIS TIME. WILL CONT TO MONITOR.
--- NOTE | 2020-04-07 15:20 | NUR ---
DR. ZHONG VO TO GIVEN BOLUS OF 25O ML OF NS.
[2020-04-07 15:45] LABS: CALCIUM, SERUM 9.1 mg/dL (8.5-10.1); CARBON DIOXIDE 26 mmol/L (21-32); CHLORIDE 99 mmol/L (98-107); CREATININE 3.3 mg/dL (0.6-1.3); GLUCOSE 118 mg/dL (74-106); POTASSIUM 3.5 mmol/L (3.5-5.1); SODIUM SERUM 134 mmol/L (136-145); UREA NITROGEN, BLOOD 46 mg/dL (7-18)
[2020-04-07 15:49] LABS: BASOPHILS % (AUTO) 0.3 % (0.0-2.0); EOSINOPHILS % (AUTO) 6.1 % (0.0-6.0); HEMATOCRIT 36 % (39-51); HEMOGLOBIN 11.2 g/dL (13.5-17.5); LYMPHOCYTES # (AUTO) 0.6 /CMM (0.8-4.8); LYMPHOCYTES % (AUTO) 6.9 % (20.0-44.0); MEAN CORPUSCULAR HGB CONC 31 g/dl (31.0-36.0); MEAN CORPUSCULAR VOLUME 96 fL (80-96); MONOCYTES # (AUTO) 1.1 /CMM (0.1-1.30); MONOCYTES % (AUTO) 12.7 % (2.0-12.0); NEUTROPHILS # (AUTO) 6.2 /CMM (1.8-8.9); PLATELET COUNT (AUTO) 250 /CMM (150-450); RED BLOOD CELL COUNT(AUTO) 3.71 MIL/uL (4.5-6.0); WHITE BLOOD COUNT (AUTO) 8.3 K/uL (4.3-11.0)
[2020-04-07 15:52] LABS: ALANINE AMINOTRANSFERASE 49 U/L (12-78); ALBUMIN 2.8 g/dL (3.4-5.0); ALKALINE PHOSPHATASE 164 U/L (46-116); ASPARTATE AMINOTRANSFERASE 16 U/L (15-37); BILIRUBIN,DIRECT 0.1 mg/dL (0.0-0.2); BILIRUBIN,TOTAL 0.2 mg/dL (0.2-1.0); TOTAL PROTEIN, SERUM 7.9 g/dL (6.4-8.2)
--- NOTE | 2020-04-07 16:25 | NUR ---
CALLED [facility] [phone]. DR. BEYER WILL CONTACT US SOON.
--- NOTE | 2020-04-07 17:07 | NUR ---
[place] TRANSFER INFO: PT GOING TO [facility], ACCEPTED BY Linda NOBLE RN FOR REPORT [phone], CCT RN ETA 1800
--- NOTE | 2020-04-07 17:49 | NUR ---
CALLED [facility] [phone] GOT TRANSFERED TO THE POD. DR. BEYER WILL CALL US BACK.
[2020-04-07] MEDS ORDERED: PIPERACILLIN /TAZOBACTAM 2.25 G in IV D5W 50 ML IV ONE (18:00)
[2020-04-07 18:03] VITALS: BP 95/63
--- NOTE | 2020-04-07 18:03 | NUR ---
RT RECD PT FOR LOW BP TRACHED INTACT AND SECURED ON MECH VENT JILLIAN ORDERED SETTING ALARMS ON AND AUDIBLE BAG AND MASK AT HOB WILL CONT TO MONITOR Addendum: 04/07/20 at 1803 by SHAHRZAD CHILDERS RT Amended: Links added.
--- NOTE | 2020-04-07 18:10 | NUR ---
REPORT GIVEN TO ANNABEL ADEN (TOUR CONDUCTOR) & ANNABEL URBAN ([facility]) FOR CONT OF CARE. PT ENROUTE TO [facility] ED VIA ALS.
== END 2020-04-07 18:12 | disposition short-term general hospital (02) ==
LOC: ER 14:38
DX: I95.9 Hypotension, unspecified (principal); E11.22 Type 2 diabetes mellitus with diabetic chronic kidney disease; N18.6 End stage renal disease; G30.9 Alzheimer's disease, unspecified; F02.80 Dementia in other diseases classified elsewhere, unspecified severity, without behavioral disturbance, psychotic disturbance, mood disturbance, and anxiety; E78.5 Hyperlipidemia, unspecified; I44.0 Atrioventricular block, first degree; R47.02 Dysphasia; Z99.2 Dependence on renal dialysis; Z86.73 Personal history of transient ischemic attack (TIA), and cerebral infarction without residual deficits; Z93.0 Tracheostomy status; Z93.1 Gastrostomy status; Z85.528 Personal history of other malignant neoplasm of kidney; Z98.890 Other specified postprocedural states; Z88.6 Allergy status to analgesic agent; Z79.899 Other long term (current) drug therapy; Z79.4 Long term (current) use of insulin
CPT/HCPCS: 36415; 71045; 80048; 80076; 83605; 83735; 84145; 84484; 85025; 85730; 87040 ×2; 93005; 96374; 99285; J2543; J7030; J7060

== ENCOUNTER 2020-10-09 13:57 | Inpatient (IN) | payer MEDICARE, MEDICAID ==
[~2020-10-09] VITALS: Ht 188 cm; Wt 97.3 kg
--- NOTE | 2020-10-09 13:27 | NUR ---
RT NOTE CHRONIC VENT PT RECEIVED IN THE ER FOR ALTERED MENTAL STATUS. PT PLACED ON VENT ON ORDERED SETTINGS. AC 16, 550, 100%, +[address] PLASCENCIA. VENT IS PLUGGED INTO THE RED OUTLET W ALARMS SET AND AUDIBLE. BMV @ HOB.NO RESPIRATORY DISTRESS NOTED T/O SHIFT.
--- NOTE | 2020-10-09 14:15 | NUR ---
BIB RA 99 FROM DIALYSIS CENTER,MORE ALTERED THAN NORMOAL AND HYPOTENSIVE 30 MINUTES INTO HIS TREATMENT. pt was hypotensive upon arrival, systolic was in the 90s. multiple peripheral iv attempts but pt is a hard stick.
[2020-10-09] MEDS ORDERED: IV NS 0.9% 500 ML BAG IV ONE (14:30)
--- NOTE | 2020-10-09 14:30 | NUR ---
covid swab antigen collected sent to lab
--- NOTE | 2020-10-09 14:32 | NUR ---
MOVE SHEET SUBMITTED AND CALLED FOR ICU BED.
--- NOTE | 2020-10-09 14:36 | NUR ---
pt is a hardstick, phleb by bedside, unable to draw blood at this time. dr espino made aware, ordered for midline insertion Addendum: 10/09/20 at 1437 by SHELBY nursing supervisor screen making made aware.
[2020-10-09] MEDS ORDERED: COLL30OI TP (14:48)
[2020-10-09] MEDS ORDERED: ALBU8.5H8 IH (14:48)
[2020-10-09] MEDS ORDERED: HYDR-4384 GT (14:48)
[2020-10-09] MEDS ORDERED: IPRA0.2S9 IH ×2 (14:48)
[2020-10-09] MEDS ORDERED: FERR300L GT (14:48)
--- NOTE | 2020-10-09 15:00 | NUR ---
urine collected sent to lab
--- NOTE | 2020-10-09 15:14 | NUR ---
midline nurse by bedside
--- NOTE | 2020-10-09 15:28 | NUR ---
midline inserted on r upper arm g 18
--- NOTE | 2020-10-09 15:33 | NUR ---
lab called per lab, not enough urine specimen need to collect more. pt is a dialysis pt, will attempt to recollect again after iv fluids infused.
[2020-10-09 15:48] LABS: BASOPHILS % (AUTO) 0.1 % (0.0-2.0); EOSINOPHILS % (AUTO) 0.4 % (0.0-6.0); HEMATOCRIT 29 % (39-51); HEMOGLOBIN 9.2 g/dL (13.5-17.5); LYMPHOCYTES # (AUTO) 0.8 /CMM (0.8-4.8); LYMPHOCYTES % (AUTO) 5.4 % (20.0-44.0); MEAN CORPUSCULAR HGB CONC 32 g/dl (31.0-36.0); MEAN CORPUSCULAR VOLUME 96 fL (80-96); MONOCYTES # (AUTO) 1.8 /CMM (0.1-1.30); MONOCYTES % (AUTO) 11.8 % (2.0-12.0); NEUTROPHILS # (AUTO) 12.4 /CMM (1.8-8.9); NEUTROPHILS % (AUTO) 82.3 % (43.0-81.0); PLATELET COUNT (AUTO) 227 /CMM (150-450); RED BLOOD CELL COUNT(AUTO) 2.99 MIL/uL (4.5-6.0)
[2020-10-09 16:03] LABS: CALCIUM, SERUM 9.8 mg/dL (8.5-10.1); CARBON DIOXIDE 25 mmol/L (21-32); CHLORIDE 94 mmol/L (98-107); GLUCOSE 265 mg/dL (74-106); POTASSIUM 3.4 mmol/L (3.5-5.1); SODIUM SERUM 134 mmol/L (136-145)
[2020-10-09 16:07] LABS: CREATININE 8.3 mg/dL (0.6-1.3); UREA NITROGEN, BLOOD 137 mg/dL (7-18)
[2020-10-09 16:17] LABS: ALANINE AMINOTRANSFERASE 1086 U/L (12-78); ALBUMIN 2.2 g/dL (3.4-5.0); ALKALINE PHOSPHATASE 234 U/L (46-116); ASPARTATE AMINOTRANSFERASE 336 U/L (15-37); BILIRUBIN,DIRECT 0.3 mg/dL (0.0-0.2); BILIRUBIN,TOTAL 0.5 mg/dL (0.2-1.0); TOTAL PROTEIN, SERUM 8.3 g/dL (6.4-8.2)
--- NOTE | 2020-10-09 17:21 | NUR ---
CALLED [facility] [phone] [place]. JAQUELIN KILLIAN WILL CALL US BACK.
--- NOTE | 2020-10-09 17:55 | NUR ---
still unable to collect urine. pt is a dialysis pt. anuric. aware.
[2020-10-09] MEDS ORDERED: CEFTRIAXONE 1GM BAG (ER ONLY) 50 ML IV ONE ×2 (18:30→18:50)
--- NOTE | 2020-10-09 19:30 | NUR ---
still no urine available. dr espino made aware.
--- NOTE | 2020-10-09 19:40 | NUR ---
covid pcr collected sent to lab
--- NOTE | 2020-10-09 20:04 | NUR ---
PT ASSIGNED TO 112-1
--- NOTE | 2020-10-09 20:30 | NUR ---
report given to raj rn, pt will go to 112
[2020-10-09] MEDS ORDERED: NEPRO VAN 237 ML CAN GT SCH (21:30)
[2020-10-09] MEDS ORDERED: ONDANSETRON HCL/PF 4 MG/2 ML VIAL IVP PRN (21:30)
[2020-10-09] MEDS ORDERED: POLYVINYL ALCOHOL 15 ML BOTTLE EACHEYE PRN (21:30)
[2020-10-09] MEDS ORDERED: COLLAGENASE 30 GM TUBE TP SCH (21:30)
[2020-10-09] MEDS ORDERED: Z GUARD REMEDY 2 OZ OINT TP PRN (21:30)
--- NOTE | 2020-10-09 21:52 | NUR ---
[facility] CALLED RE: IF VENT MACHINE IS WITH PATIENT, PT VENT AT BEDSIDE, [facility] WILL SEND TRANSPORT TO PICKUP VENT. VENT WILL BE WITH PATIENT TO 1ST FLOOR
[2020-10-09] MEDS ORDERED: DEXTROSE 50%-WATER 50 ML DISP.SYRIN IV PRN (22:00)
--- NOTE | 2020-10-09 22:07 | NUR ---
transferred to 112
--- NOTE | 2020-10-09 22:30 | NUR ---
RECEIVED PT FROM ER VIA [facility] ON TRACH/VENT SETTING PER MD FIO2 50% SPO2 100% NO RESP DISTRESS NOTED NO PAIN COMPLAINED, PT IS A/O X3 NON VERBAL BUT CAN NOD YES OR NO,SAFELY TRANSFER FROM [facility] TO BED V/S CHECKED AND RECORDED, HEAD TO TOE ASSESSMENT DONE WOUND DOCUMENTATION AND DRESSING DONE, INITIAL ASSESSMENT DONE AND DOCUMENT, ORIENTATION TO THE UNIT DONE,DROPLET ISOLATION FOR R/O COVID INITIATED, ALL DUE MEDS STARTED, BED ON LOWEST POSITION AND LOCKED SIDE RAILS UP X2 CALL LIGHT WITHIN REACH WILL CONT TO MONITOR THE PT
[2020-10-09] MEDS: HEPARIN SODIUM, PORCINE 5000 UNITS/1 ML VIAL SQ SCH (22:41)
[2020-10-09] MEDS: ATORVASTATIN 10 MG TABLET GT SCH (22:41)
[2020-10-09] MEDS: DONEPEZIL 5 MG TABLET PO SCH (22:41)
[2020-10-09] MEDS: SENNOSIDES 8.6 MG TABLET GT SCH (22:41)
[2020-10-09] MEDS ORDERED: PIPERACILLIN /TAZOBACTAM 2.25 G VIAL IV ONE (23:30)
[2020-10-10] VITALS: BP 129/64
[2020-10-10] MEDS ORDERED: PIPERACILLIN /TAZOBACTAM 2.25 G in IV D5W 50 ML IV ONE ×2
[2020-10-10] MEDS: BLOOD SUGAR DIAGNOSTIC 1 EACH STRIP IN SCH ×5 (00:01→23:52)
[2020-10-10] MEDS: INSULIN REGULAR, HUMAN 100 UNIT/ML 3 ML VIAL SQ PRN ×6 (00:03→23:54)
--- NOTE | 2020-10-10 00:45 | NUR ---
PT COMPLAINING OF ABDOMINAL PAIN, BUT NO PAIN MEDICATION IS ORDERED, REFER TO DR. MARNIE COLE, WITH ORDER FOR STAT KUB XRAY, CANNOT GIVE PAIN MEDICATION YET DUE TO HIGH AST AND ALT AND BUN/CREA, NOTED AND CARRIED OUT
[2020-10-10] MEDS: NEPRO 1,000 ML BOTTLE GT PRN ×2 (01:09→23:11)
[2020-10-10 04:00] VITALS: BP_SYST 122; BP_SYST 129; BP_DIAS 58; BP_DIAS 64
[2020-10-10 06:54] LABS: BASOPHILS % (AUTO) 0.2 % (0.0-2.0); EOSINOPHILS % (AUTO) 0.8 % (0.0-6.0); HEMATOCRIT 30 % (39-51); HEMOGLOBIN 9.4 g/dL (13.5-17.5); LYMPHOCYTES # (AUTO) 0.8 /CMM (0.8-4.8); LYMPHOCYTES % (AUTO) 6.3 % (20.0-44.0); MEAN CORPUSCULAR HGB CONC 32 g/dl (31.0-36.0); MEAN CORPUSCULAR VOLUME 100 fL (80-96); MONOCYTES # (AUTO) 1.1 /CMM (0.1-1.30); MONOCYTES % (AUTO) 8.7 % (2.0-12.0); NEUTROPHILS # (AUTO) 10.9 /CMM (1.8-8.9); PLATELET COUNT (AUTO) 223 /CMM (150-450); RED BLOOD CELL COUNT(AUTO) 2.99 MIL/uL (4.5-6.0)
--- NOTE | 2020-10-10 06:57 | NUR ---
PT ON BED ASLEEP EASY TO WAKE UP NO SIGN OF ANY DISTRESS, SPO2 100% NO SIGNIFICANT CHANGES ON CONDITION NOTED, ALL NEEDS ATTENDED TELE MONITOR READS SINUS RHYTHM 80S BED ON LOWEST POSITION AND LOCKED SIDE RAILS UP X 2 CALL LIGHT WITHIN REACH WILL ENDORSED TO AM SHIFT NURSE
[2020-10-10] MEDS ORDERED: PIPERACILLIN /TAZOBACTAM 2.25 G in IV D5W 50 ML IV SCH (07:00)
--- NOTE | 2020-10-10 07:00 | NUR ---
RN OPENING NOTE PT IS A/O X2 AND COOPERATIVE. PT IS NONVERBAL BUT CAN UNDERSTAND NURSE INSTRUCTIONS. PT WILL NOD OR SHAKE HEAD TO ANSWER QUESTIONS. PT IS CURRENTLY ON TRACH WITH NO RESPIRATORY DISTRESS PRESENT. O2 SAT IS 96%. PT IS SR ON THE MONITOR WITH HR OF 86. PT IS BEDBOUND. SACRAL EXCORIATION AND R LEG OPEN WOUND PRESENT. MIDLINE PRESENT IN THE LEFT UPPER ARM. AV FISTURA PRESENT ON RIGHT UPPER ARM. SAFETY MEASURES IN PLACE. CALL LIGHT WITHIN REACH. LOWERED BED. SIDE RAILS RAISED. WILL CONTINUE TO MONITOR
[2020-10-10 07:10] LABS: HDL CHOLESTEROL 14 mg/dL (40-60); LDL 46 mg/dL (0-99); TRIGLYCERIDES 465 mg/dL (30-150)
[2020-10-10 07:33] LABS: CHOLESTEROL 147 mg/dL (<200)
[2020-10-10] MEDS: ALBUTEROL SULFATE INH 18 GM HFA.AER.AD IH SCH ×3 (07:34→20:28)
--- NOTE | 2020-10-10 07:49 | NUR ---
RT NOTE RECEIVED PT MECHANICALLY VENTILATED VIA CUFFED TRACHEOSTOMY TUBE. CUFF INFLATED. TRACH TUBE MIDLINE AND SECURE. ALARMS SET PER PROTOCOL AND AUDIBLE. VENT PLUGGED IN TO RED OUTLET. AMBU BAG AND BACK UP TRACH AT BED SIDE. NO DISTRESS NOTED. Addendum: 10/10/20 at 0754 by CLEMENT MCKINNEY RT Amended: Links added.
--- NOTE | 2020-10-10 07:56 | NUR ---
RT NOTE PT ALBUTEROL TX HELD DUE TO COVID R/O STATUS. NO DISTRESS NOTED.
[2020-10-10 08:00] VITALS: BP 124/49
[2020-10-10] MEDS: VIT B CMPLX 3/FA/VIT C/BIOTIN 1 TAB TABLET PO SCH (08:19)
[2020-10-10] MEDS: FERROUS SULFATE UDC 300 MG/5 ML UDC GT SCH (08:19)
[2020-10-10] MEDS: SEVELAMER CARBONATE 800 MG POWD.PACK GT SCH ×3 (08:19→17:09)
[2020-10-10] MEDS: FAMOTIDINE (20 MG) 20 MG TABLET GT SCH ×2 (08:19→17:10)
[2020-10-10] MEDS: CHOLECALCIFEROL (VITAMIN D 3) 400 UNIT TABLET GT SCH (08:20)
[2020-10-10 08:22] LABS: SERUM AMMONIA 72 umol/L (11-32)
[2020-10-10] MEDS: PIPERACILLIN /TAZOBACTAM 2.25 G in IV D5W 50 ML IV SCH ×3 (08:23→22:25)
[2020-10-10] MEDS ORDERED: THERAHONEY GEL 1.5 OZ TUBE TP SCH (08:30)
[2020-10-10] MEDS: ASCORBIC ACID 500 MG TABLET PO SCH (08:38)
[2020-10-10] MEDS ORDERED: ASCORBIC ACID SYRUP 500 MG/5 ML UDC PO SCH (09:00)
--- NOTE | 2020-10-10 09:24 | NUR ---
WOUND CARE CONSULT: REVIEWED CHART, NURSING DOCUMENTATION AND PHOTOS WHICH INDICATE WOUND TO RT LOWER LEG AND INCONTINENCE ASSOCIATED SKIN DAMAGE OVER SACRAL/BUTTOCKS SCARRING, [id number] ON ADMISSION. RECOMMEND DPM CONSULT. DR WILLAMS NOTIFIED OF CONSULT REQUEST. RECOMMENDATIONS MADE FOR SKIN PROTECTION. DISCUSSED WITH NURSING STAFF. PT IS ON VALERI ISOFLEX LOW AIRLOSS BED. MD IN AGREEMENT WITH PLAN OF CARE.
--- NOTE | 2020-10-10 10:00 | NUR ---
RN NOTE UA PENDING DUE TO INSUFFICIENT URINE SAMPLE. PT IS A DIALYSIS PT.
[2020-10-10] MEDS: HEPARIN SODIUM, PORCINE 5000 UNITS/1 ML VIAL SQ SCH ×2 (10:29→22:40)
--- NOTE | 2020-10-10 10:30 | NUR ---
TRIED TO STRAIGHT CATH THE PT TO COLLECT URINE BUT NO URINE OUTPUT RESULT.PT IS ANURIC DUE TO KIDNEY FAILURE.PT IS HEMODIALYSIS PT. NOTIFIED CHRIS CASTILLO AND MADE AWARE UNABLE TO COLLECT URINE.
[2020-10-10 11:18] LABS: ALANINE AMINOTRANSFERASE 742 U/L (12-78); ALKALINE PHOSPHATASE 220 U/L (46-116); ASPARTATE AMINOTRANSFERASE 150 U/L (15-37); BILIRUBIN,DIRECT 0.3 mg/dL (0.0-0.2); BILIRUBIN,TOTAL 0.6 mg/dL (0.2-1.0); CARBON DIOXIDE 24 mmol/L (21-32); CHLORIDE 93 mmol/L (98-107); GLUCOSE 309 mg/dL (74-106); MAGNESIUM 3.4 mg/dL (1.8-2.4); PHOSPHORUS 2.7 mg/dL (2.5-4.9); POTASSIUM 3.4 mmol/L (3.5-5.1); SODIUM SERUM 134 mmol/L (136-145); TOTAL PROTEIN, SERUM 7.9 g/dL (6.4-8.2)
[2020-10-10 11:20] LABS: CREATININE 8.9 mg/dL (0.6-1.3); UREA NITROGEN, BLOOD 148 mg/dL (7-18)
[2020-10-10 12:00] VITALS: BP 135/67
--- NOTE | 2020-10-10 12:00 | NUR ---
PT'S K+ 3.4. NOTIFIED PHARMACIST,CARLEEN WHO STATED THAT THEY DON'T SUPPLEMENT FOR DIALYSIS PT.
[2020-10-10 16:00] VITALS: BP 129/63
[2020-10-10] MEDS ORDERED: VANCOMYCIN 1 GM in IV D5W 250ml IV ONE ×2 (16:00→18:30)
--- NOTE | 2020-10-10 16:00 | NUR ---
CALLED LAB 2X FOR PENDING VANCO TROUGH RESULT. STILL PENDING AT THIS TIME.
--- NOTE | 2020-10-10 18:30 | NUR ---
VANCO IV SCHEDULED FOR 1600 WAS CHANGED TO 1800 DUE TO A VERY DELAYED VANCO LEVEL RESULT.
--- NOTE | 2020-10-10 18:46 | NUR ---
VERY DELAYED VANCO LEVEL RESULT.PT'S VANCO LEVEL IS 1 AND WILL ADMINISTER VANCO IV NOW.NOTIFIED PHARMACIST,JOSESITO ABOUT IT.
--- NOTE | 2020-10-10 19:30 | NUR ---
RN CLOSING NOTE PT IS A/O X2 AND COOPERATIVE. PT IS NONVERBAL BUT CAN UNDERSTAND NURSE INSTRUCTIONS. PT WILL NOD OR SHAKE HEAD TO ANSWER QUESTIONS. PT IS CURRENTLY ON TRACH WITH NO RESPIRATORY DISTRESS PRESENT. PT IS SR ON THE EXTERNAL MONITOR PT IS BEDBOUND. SACRAL EXCORIATION AND R LEG OPEN WOUND PRESENT. MIDLINE PRESENT IN THE LEFT UPPER ARM. AV FISTULA PRESENT ON RIGHT UPPER ARM. ROUTINE MEDS GIVEN. SAFETY MEASURES IN PLACE. CALL LIGHT WITHIN REACH. LOWERED BED. SIDE RAILS RAISED.
--- NOTE | 2020-10-10 19:45 | NUR ---
RN NOTES RECEIVED PT IN BED. WITH TRACH/VENT. TOLERATING SETTINGS, NO RESP DISTRESS NOTED. PT NONVERBAL, OPEN EYES AND NODS. PT SR ON TELE MONITOR. NO SIGNS OF PAIN NOR DISCOMFORT NOTED. ON GT FEEDING OF NEPRO RUNNING AT 55ML/HR. <5CC RESIDUAL. GT PATENT AND INTACT. KEPT HOB ELEVATED. WITH JAMIE MIDLINE. PATENT AND INTACT, VANCOMYCIN IV STILL RUNNING, NO SIGNS OF INFILTRATION. BED LOCKED IN LOWEST POSITION. SIDE RAILS UP X2. CALL LIGHT WITHIN REACH.
[2020-10-10 20:00] VITALS: BP 115/53
[2020-10-10] MEDS: ATORVASTATIN 10 MG TABLET GT SCH (22:51)
[2020-10-10] MEDS: DONEPEZIL 5 MG TABLET PO SCH (22:51)
[2020-10-10] MEDS: SENNOSIDES 8.6 MG TABLET GT SCH (22:51)
[2020-10-11] VITALS (7 sets, daily range): BP systolic 95–133; BP diastolic 41–84
[2020-10-11] MEDS: ALBUTEROL SULFATE INH 18 GM HFA.AER.AD IH SCH ×4 (01:45→19:52)
[2020-10-11] MEDS: PIPERACILLIN /TAZOBACTAM 2.25 G in IV D5W 50 ML IV SCH ×3 (05:09→21:12)
[2020-10-11] MEDS: BLOOD SUGAR DIAGNOSTIC 1 EACH STRIP IN SCH ×3 (06:31→17:26)
[2020-10-11] MEDS: INSULIN REGULAR, HUMAN 100 UNIT/ML 3 ML VIAL SQ PRN ×3 (06:32→16:39)
--- NOTE | 2020-10-11 07:00 | NUR ---
RN NOTES PT REMAINS IN BED. TOLERATING VENT SETTINGS AC 16 TV 550 FIO2 50% PEEP 5. NO RESP DISTRESS NOTED. SR ON TELE MONITOR HR 80S. IV REMAIN PATENT AND INTACT. WOUND TX DONE ORDERED. GT FEEDING OF NEPRO TOLERATING WELL. NO SIGNS OF ASPIRATION NOTED. KEPT HOB ELEVATED. ALL NEEDS ATTENDED. SIDE RAILS UP. BED LOCKED IN LOWEST POSITION.
--- NOTE | 2020-10-11 08:00 | NUR ---
STOCK TRACER NOTES RECEIVED PT IN BED. WITH TRACH/VENT. TOLERATING SETTINGS, NO RESP DISTRESS NOTED. PT NONVERBAL, OPEN EYES AND NODS. PT SR ON TELE MONITOR. NO SIGNS OF PAIN NOR DISCOMFORT NOTED. ON GT FEEDING OF NEPRO RUNNING AT 55ML/HR. <5CC RESIDUAL. GT PATENT AND INTACT. KEPT HOB ELEVATED. WITH JAMIE MIDLINE. PATENT AND INTACT,LT ARM IS SWOLLEN ,KEEP ELEVATED TOLERATED , . BED LOCKED IN LOWEST POSITION. SIDE RAILS UP X2. CALL LIGHT WITHIN REACH.WILL MONITOR
[2020-10-11] MEDS: FERROUS SULFATE UDC 300 MG/5 ML UDC GT SCH (08:32)
[2020-10-11] MEDS: FAMOTIDINE (20 MG) 20 MG TABLET GT SCH ×2 (08:32→16:22)
[2020-10-11] MEDS: ASCORBIC ACID 500 MG TABLET PO SCH (08:32)
[2020-10-11] MEDS: CHOLECALCIFEROL (VITAMIN D 3) 400 UNIT TABLET GT SCH (08:33)
[2020-10-11] MEDS: VIT B CMPLX 3/FA/VIT C/BIOTIN 1 TAB TABLET PO SCH (08:33)
[2020-10-11] MEDS: SEVELAMER CARBONATE 800 MG POWD.PACK GT SCH ×3 (08:33→16:22)
[2020-10-11] MEDS: HEPARIN SODIUM, PORCINE 5000 UNITS/1 ML VIAL SQ SCH ×2 (08:35→22:11)
[2020-10-11] MEDS: THERAHONEY GEL 1.5 OZ TUBE TP SCH (08:36)
--- NOTE | 2020-10-11 10:04 | NUR ---
ASSEMBLER WATCH TRAIN NOTE FREQUENT SUCTION BY RT KEEP CLEAN DRY
[2020-10-11] MEDS: ACETAMINOPHEN 325 MG TABLET PO PRN (12:49)
--- NOTE | 2020-10-11 12:59 | NUR ---
[facility] RN DNP AT BEDSIDE AWARE THAT T 101 AND BLOOD CX GRAM POSITIVE COCCI IN CLUSTER, AWARE THAT ON ZOSYN Addendum: 10/11/20 at 1321 by BECKI HANDLEY RN HR 110 LISBETH CHACON RN, NP AWARE
--- NOTE | 2020-10-11 14:38 | NUR ---
NEWS CLERK NOT PER DR FLEMING LEG DEBRIDEMENT WNEN HE IS NEGATIVE FOR COVID
[2020-10-11 15:38] LABS: BASOPHILS # (AUTO) 0.1 /CMM (0.0-0.2); BASOPHILS % (AUTO) 0.6 % (0.0-2.0); HEMATOCRIT 30 % (39-51); HEMOGLOBIN 9.3 g/dL (13.5-17.5); LYMPHOCYTES # (AUTO) 1.2 /CMM (0.8-4.8); LYMPHOCYTES % (AUTO) 7.5 % (20.0-44.0); MEAN CORPUSCULAR HGB CONC 31 g/dl (31.0-36.0); MEAN CORPUSCULAR VOLUME 96 fL (80-96); MONOCYTES # (AUTO) 1.6 /CMM (0.1-1.30); MONOCYTES % (AUTO) 10.1 % (2.0-12.0); NEUTROPHILS # (AUTO) 12.6 /CMM (1.8-8.9); NEUTROPHILS % (AUTO) 80.8 % (43.0-81.0); PLATELET COUNT (AUTO) 329 /CMM (150-450); RED BLOOD CELL COUNT(AUTO) 3.11 MIL/uL (4.5-6.0); WHITE BLOOD COUNT (AUTO) 15.5 K/uL (4.3-11.0)
[2020-10-11 16:29] LABS: BAND % (MANUAL) 2 % (0.0-5.0); EOSINOPHILS % (MANUAL) 1 % (0-4); LYMPHOCYTES % (MANUAL) 9 % (16-48); MONOCYTES % (MANUAL) 10 % (0-11.0); NEUTROPHILS % (MANUAL) 78 (42-76)
--- NOTE | 2020-10-11 17:26 | NUR ---
RPG PROGRAMMER NOTE CONSENT FOR HD DONE SPOKE WITH SISTER
--- NOTE | 2020-10-11 19:30 | NUR ---
RT PT TRANSPORTED TO 3RD FLOOR ON VENT. VENT PLUGGED INTO RED OUTLET, O2 CONNECTED TO WALL SOURCE. AMBU BAG AND SPARE TRACH AT BEDSIDE. ALARMS ON AND AUDIBLE. NO SOB OR RESPIRATORY DISTRESS AT THIS TIME.
--- NOTE | 2020-10-11 19:45 | NUR ---
tele needle loom operator helper initial notes received a transferred patient from [facility] . DX AMS. Pt still on mechanical ventilator set up by Respiratory therapy . he's awake and able to response follows commands. No signs of any acute distress noted. he also has g-tube feeding Nephro at 55 ml/hr . skin warm and dry to touch noticed wound on his right lower leg that due for debridement palak. kept him on semi fowlers position with side rails x2 up . tele Sinus Rhythm per monitor. kept him warm and comfortable at all times. will continue monitoring.
--- NOTE | 2020-10-11 19:49 | NUR ---
TENTER FRAME OPERATOR NOTE TRANSFERRED TO [facility], REPORT GIVEN TO HYUN
--- NOTE | 2020-10-11 20:00 | NUR ---
TELE SMALL PARTS ASSEMBLER INITIAL NOTES PT IS A/O X2 AND COOPERATIVE. PT IS NONVERBAL BUT CAN UNDERSTAND NURSE INSTRUCTIONS. PT WILL NOD OR SHAKE HEAD TO ANSWER QUESTIONS. PT IS CURRENTLY ON MECHANICAL VENT [id number], FIO2 50%, PEEPS 5, SHILEY #7 TRACH WITH NO RESPIRATORY DISTRESS PRESENT. O2 SAT IS 96%. PT IS SR ON THE MONITOR WITH HR OF 86. PT IS BEDBOUND. SACRAL EXCORIATION AND R LEG OPEN WOUND PRESENT. MIDLINE PRESENT IN THE LEFT UPPER ARM. AV FISTULA PRESENT ON RIGHT UPPER ARM. SAFETY MEASURES IN PLACE. CALL LIGHT WITHIN REACH. LOWERED BED. SIDE RAILS RAISED. WILL CONTINUE TO MONITORING.
[2020-10-11] MEDS: NEPRO 1,000 ML BOTTLE GT PRN (20:12)
--- NOTE | 2020-10-11 21:15 | NUR ---
tele clinical esthetician notes dialysis nurse just came and started setting dialysis treatment for pt . pt awake and not in any distress noted. kept him warm and comfortable at all times. will continue monitoring.
[2020-10-11] MEDS: ALBUMIN 25% 50 GM in PREMIX 1 EA IV PRN (21:26)
[2020-10-11] MEDS: ATORVASTATIN 10 MG TABLET GT SCH (22:05)
[2020-10-11] MEDS: SENNOSIDES 8.6 MG TABLET GT SCH (22:05)
[2020-10-11] MEDS: DONEPEZIL 5 MG TABLET PO SCH (22:05)
[2020-10-11] MEDS ORDERED: VANCOMYCIN 1 GM VIAL ONE (22:48)
[2020-10-11] MEDS: VANCOMYCIN POST DIALYSIS 500MG IV PRN ×2 (23:44)
--- NOTE | 2020-10-11 23:44 | NUR ---
ms natacha notes OK to give Vancomycin 500 mg IVPB per [facility]. Another nurse hung the IV as ordered.
[2020-10-12 00:35] VITALS: BP 90/50
[2020-10-12] MEDS: ALBUTEROL SULFATE INH 18 GM HFA.AER.AD IH SCH ×4 (02:04→20:00)
[2020-10-12] MEDS: INSULIN REGULAR, HUMAN 100 UNIT/ML 3 ML VIAL SQ PRN ×4 (02:25→17:26)
[2020-10-12 04:37] VITALS: BP 119/71
[2020-10-12] MEDS: PIPERACILLIN /TAZOBACTAM 2.25 G in IV D5W 50 ML IV SCH ×2 (05:14→13:09)
[2020-10-12] MEDS: BLOOD SUGAR DIAGNOSTIC 1 EACH STRIP IN SCH ×4 (06:29→17:25)
[2020-10-12 08:00] VITALS: BP 115/62
--- NOTE | 2020-10-12 08:00 | NUR ---
TELE DIRECTOR OF GRANTS INITIAL NOTES PT IS A/O X2 AND COOPERATIVE. PT IS NONVERBAL BUT CAN UNDERSTAND NURSE INSTRUCTIONS. PT WILL NOD OR SHAKE HEAD TO ANSWER QUESTIONS. PT IS CURRENTLY ON MECHANICAL VENT TV550, FIO2 50%, PEEPS 5, SHILEY #7 TRACH WITH NO RESPIRATORY DISTRESS PRESENT. O2 SAT IS 96%. PT IS SR STON THE MONITOR WITH HR OF 122. PT IS BEDBOUND. SACRAL EXCORIATION AND R LEG OPEN WOUND PRESENT. MIDLINE PRESENT IN THE LEFT UPPER ARM. AV FISTULA PRESENT ON RIGHT UPPER ARM. SAFETY MEASURES IN PLACE. TURNED EVERY TWO HRS. CALL LIGHT WITHIN REACH. LOWERED BED. SIDE RAILS RAISED. WILL CONTINUE TO MONITORING.
--- NOTE | 2020-10-12 08:02 | NUR ---
TELE SENIOR SOUS CHEF CLOSING NOTES MORNING CARE DONE, BLOOD SUGAR CHECKED 269, 6 UNITS OF INSULIN GIVEN MATEO SQ ORDERED. NO SIGNS OF HYPER GLYCEMIA NOTED. ALL DUE MEDS GIVEN AND ALL NEEDS MET. TELE SR PER MONITOR. KEPT HIM WARM AND COMFORTABLE AT ALL TIMES.STABLE THROUGHOUT THE NIGHT. ENDORSE TO AM NURSE CYNTHIA/RN FOR CONTINUITY OF CARE.
[2020-10-12] MEDS: SEVELAMER CARBONATE 800 MG POWD.PACK GT SCH ×3 (09:01→17:43)
[2020-10-12] MEDS: FERROUS SULFATE UDC 300 MG/5 ML UDC GT SCH (09:01)
[2020-10-12] MEDS: VIT B CMPLX 3/FA/VIT C/BIOTIN 1 TAB TABLET PO SCH (09:01)
[2020-10-12] MEDS: FAMOTIDINE (20 MG) 20 MG TABLET GT SCH ×2 (09:01→17:43)
[2020-10-12] MEDS: CHOLECALCIFEROL (VITAMIN D 3) 400 UNIT TABLET GT SCH (09:01)
[2020-10-12] MEDS: ASCORBIC ACID 500 MG TABLET PO SCH (09:01)
[2020-10-12] MEDS: HEPARIN SODIUM, PORCINE 5000 UNITS/1 ML VIAL SQ SCH ×2 (09:02→21:22)
[2020-10-12] MEDS: THERAHONEY GEL 1.5 OZ TUBE TP SCH (09:55)
[2020-10-12 11:27] LABS: BASOPHILS % (AUTO) 0.3 % (0.0-2.0); EOSINOPHILS % (AUTO) 2.6 % (0.0-6.0); HEMATOCRIT 26 % (39-51); HEMOGLOBIN 8.1 g/dL (13.5-17.5); LYMPHOCYTES # (AUTO) 0.7 /CMM (0.8-4.8); LYMPHOCYTES % (AUTO) 6.1 % (20.0-44.0); MEAN CORPUSCULAR HGB CONC 32 g/dl (31.0-36.0); MEAN CORPUSCULAR VOLUME 94 fL (80-96); MONOCYTES # (AUTO) 0.9 /CMM (0.1-1.30); MONOCYTES % (AUTO) 8.1 % (2.0-12.0); NEUTROPHILS # (AUTO) 9.6 /CMM (1.8-8.9); NEUTROPHILS % (AUTO) 82.9 % (43.0-81.0); PLATELET COUNT (AUTO) 330 /CMM (150-450); RED BLOOD CELL COUNT(AUTO) 2.72 MIL/uL (4.5-6.0); WHITE BLOOD COUNT (AUTO) 11.6 K/uL (4.3-11.0)
[2020-10-12 11:58] LABS: CALCIUM, SERUM 9.7 mg/dL (8.5-10.1); CARBON DIOXIDE 28 mmol/L (21-32); CHLORIDE 93 mmol/L (98-107); CREATININE 6.7 mg/dL (0.6-1.3); GLUCOSE 332 mg/dL (74-106); MAGNESIUM 2.9 mg/dL (1.8-2.4); PHOSPHORUS 1.4 mg/dL (2.5-4.9); POTASSIUM 3.4 mmol/L (3.5-5.1); SODIUM SERUM 133 mmol/L (136-145); VANCOMYCIN,RANDOM 22 ug/ml (18-26)
[2020-10-12 12:00] VITALS: BP 95/51
[2020-10-12 12:10] LABS: UREA NITROGEN, BLOOD 97 mg/dL (7-18)
[2020-10-12 12:17] LABS: BAND % (MANUAL) 2 % (0.0-5.0); EOSINOPHILS % (MANUAL) 2 % (0-4); LYMPHOCYTES % (MANUAL) 4 % (16-48); MONOCYTES % (MANUAL) 8 % (0-11.0); NEUTROPHILS % (MANUAL) 84 (42-76)
[2020-10-12 16:00] VITALS: BP 110/58
[2020-10-12] MEDS: ACETAMINOPHEN 325 MG TABLET PO PRN (17:45)
--- NOTE | 2020-10-12 18:30 | NUR ---
Temp 101.1 and pt had 2 episodes of brown watery stool. Notified [facility] and made aware. Tylenol 650 mg via GT given. Cooling measures rendered.
--- NOTE | 2020-10-12 19:30 | NUR ---
RN NOTES PT IS A/O X1-2 ASLEEP BUT AROUSABLE. PT IS NONVERBAL BUT CAN UNDERSTAND NURSE INSTRUCTIONS. PT WILL NOD OR SHAKE HEAD TO ANSWER QUESTIONS. PT IS CURRENTLY ON MECHANICAL VENT TV550, FIO2 50%, PEEPS 5, SHILEY #7 TRACH WITH NO RESPIRATORY DISTRESS PRESENT. O2 SAT IS 96%. PT IS BEDBOUND. SACRAL EXCORIATION AND R LEG OPEN WOUND PRESENT. MIDLINE PRESENT IN THE LEFT UPPER ARM. AV FISTULA PRESENT ON RIGHT UPPER ARM. SAFETY MEASURES IN PLACE. CALL LIGHT WITHIN REACH. LOWERED BED. SIDE RAILS RAISED. WILL CONTINUE TO MONITORING.
[2020-10-12] MEDS ORDERED: NS 0.9% IV ONE (20:00)
[2020-10-12] MEDS ORDERED: NEUTRA PHOS 1 POWD.PACKET GT ONE (20:00)
[2020-10-12] MEDS ORDERED: SODIUM PHOSPHATE IV ONE (20:00)
[2020-10-12 21:08] VITALS: BP 107/59
[2020-10-12] MEDS: RIFAMPIN 300 MG CAPSULE PO SCH (21:15)
[2020-10-12] MEDS: DONEPEZIL 5 MG TABLET PO SCH (21:16)
[2020-10-12] MEDS: ATORVASTATIN 10 MG TABLET GT SCH (21:16)
[2020-10-12] MEDS: METRONIDAZOLE 500 MG TABLET PO SCH (21:16)
[2020-10-12] MEDS: SENNOSIDES 8.6 MG TABLET GT SCH (21:16)
[2020-10-13] VITALS (7 sets, daily range): BP systolic 96–146; BP diastolic 51–71
[2020-10-13] MEDS: BLOOD SUGAR DIAGNOSTIC 1 EACH STRIP IN SCH ×5 (00:28→22:17)
[2020-10-13] MEDS: INSULIN REGULAR, HUMAN 100 UNIT/ML 3 ML VIAL SQ PRN ×4 (00:56→18:23)
[2020-10-13] MEDS: ALBUTEROL SULFATE INH 18 GM HFA.AER.AD IH SCH ×4 (01:46→20:31)
[2020-10-13] MEDS: NEPRO 1,000 ML BOTTLE GT PRN (01:54)
[2020-10-13] MEDS: METRONIDAZOLE 500 MG TABLET PO SCH ×3 (04:29→21:54)
[2020-10-13 06:22] LABS: BASOPHILS % (AUTO) 0.3 % (0.0-2.0); EOSINOPHILS % (AUTO) 2.7 % (0.0-6.0); HEMATOCRIT 28 % (39-51); HEMOGLOBIN 8.8 g/dL (13.5-17.5); LYMPHOCYTES # (AUTO) 1.2 /CMM (0.8-4.8); LYMPHOCYTES % (AUTO) 9.5 % (20.0-44.0); MEAN CORPUSCULAR HGB CONC 32 g/dl (31.0-36.0); MEAN CORPUSCULAR VOLUME 100 fL (80-96); MONOCYTES # (AUTO) 1.3 /CMM (0.1-1.30); MONOCYTES % (AUTO) 10.6 % (2.0-12.0); NEUTROPHILS # (AUTO) 9.3 /CMM (1.8-8.9); NEUTROPHILS % (AUTO) 76.9 % (43.0-81.0); PLATELET COUNT (AUTO) 378 /CMM (150-450); RED BLOOD CELL COUNT(AUTO) 2.76 MIL/uL (4.5-6.0); WHITE BLOOD COUNT (AUTO) 12.1 K/uL (4.3-11.0)
[2020-10-13 07:27] LABS: CALCIUM, SERUM 9.8 mg/dL (8.5-10.1); CARBON DIOXIDE 26 mmol/L (21-32); CHLORIDE 91 mmol/L (98-107); CREATININE 7.1 mg/dL (0.6-1.3); MAGNESIUM 3.2 mg/dL (1.8-2.4); PHOSPHORUS 1.5 mg/dL (2.5-4.9); POTASSIUM 3.5 mmol/L (3.5-5.1); SODIUM SERUM 132 mmol/L (136-145)
[2020-10-13 07:29] LABS: GLUCOSE 519 mg/dL (74-106); UREA NITROGEN, BLOOD 113 mg/dL (7-18)
--- NOTE | 2020-10-13 07:45 | NUR ---
RN NOTES FOLLOWED PROTOCOL GAVE PT INSULIN PER PROTOCOL RECHECKED INSULIN STILL HIGH CALLED EPIC REGARDING PATIENTS HIGH BLOOD GLUCOSE WAITING FOR RESPONSE. WILL ENDORSE TO DAY SHIFT NURSE REGARDING PATIENTS CHANGE OF CONDITION AND TO FOLLOW UP WITH MD.
--- NOTE | 2020-10-13 07:53 | NUR ---
RN NOTES PT IS A/O X1-2 ASLEEP BUT AROUSABLE. PT IS NONVERBAL BUT CAN UNDERSTAND NURSE INSTRUCTIONS. PT WILL NOD OR SHAKE HEAD TO ANSWER QUESTIONS. PT IS CURRENTLY ON MECHANICAL VENT TV550, FIO2 50%, PEEPS 5, SHILEY #7 TRACH WITH NO RESPIRATORY DISTRESS PRESENT. O2 SAT IS 96%. PT IS BEDBOUND.SACRAL EXCORIATION AND R LEG OPEN WOUND PRESENT. MIDLINE PRESENT IN THE LEFT UPPER ARM. AV FISTULA PRESENT ON RIGHT UPPER ARM. SAFETY MEASURES IN PLACE. CALL LIGHT WITHIN REACH. LOWERED BED. SIDE RAILS RAISED. ENDORSED CARE AND MEGAN TO DAY SHIFT NURSE.
[2020-10-13] MEDS: THERAHONEY GEL 1.5 OZ TUBE TP SCH (09:00)
[2020-10-13] MEDS ORDERED: *INSULIN REGULAR(HUMULIN R)HUM 100 UNIT/ML VIAL SQ PRN (09:30)
[2020-10-13] MEDS ORDERED: DEXTROSE 50%-WATER 50 ML DISP.SYRIN IV PRN (09:30)
[2020-10-13 09:38] LABS: BAND % (MANUAL) 2 % (0.0-5.0); EOSINOPHILS % (MANUAL) 5 % (0-4); LYMPHOCYTES % (MANUAL) 6 % (16-48); MONOCYTES % (MANUAL) 7 % (0-11.0); MYELOCYTES % 3 % (0-0); NEUTROPHILS % (MANUAL) 77 (42-76)
[2020-10-13] MEDS: SEVELAMER CARBONATE 800 MG POWD.PACK GT SCH ×2 (11:47→13:48)
[2020-10-13] MEDS: CHOLECALCIFEROL (VITAMIN D 3) 400 UNIT TABLET GT SCH (13:48)
[2020-10-13] MEDS: FERROUS SULFATE UDC 300 MG/5 ML UDC GT SCH (13:48)
[2020-10-13] MEDS: ASCORBIC ACID 500 MG TABLET PO SCH (13:49)
[2020-10-13] MEDS: FAMOTIDINE (20 MG) 20 MG TABLET GT SCH ×2 (13:49→18:28)
[2020-10-13] MEDS: VIT B CMPLX 3/FA/VIT C/BIOTIN 1 TAB TABLET PO SCH (13:50)
[2020-10-13] MEDS: HEPARIN SODIUM, PORCINE 5000 UNITS/1 ML VIAL SQ SCH ×2 (13:55→21:56)
[2020-10-13] MEDS ORDERED: INSULIN REGULAR, HUMAN 100 UNIT/ML 3 ML VIAL SQ ONE (14:00)
--- NOTE | 2020-10-13 20:22 | NUR ---
MS/TELE/RN RECEIVED PATIENT APPEAR SLEEPING, APPEAR COMFORTABLE, NO SIGNS OF DISTRESS NOTED, ON MECHANICAL VENTILATOR, GTUBE FEEDING INFUSING, HOB ELEVATED, WILL MONITOR.
--- NOTE | 2020-10-13 20:27 | NUR ---
MS/TELE/RN VANCOMYCIN TROUGH 21, VANCOMYCIN IV NOT ADMINISTERED POST DIALYSIS.
[2020-10-13] MEDS: SENNOSIDES 8.6 MG TABLET GT SCH (21:54)
[2020-10-13] MEDS: ATORVASTATIN 10 MG TABLET GT SCH (21:55)
[2020-10-13] MEDS: RIFAMPIN 300 MG CAPSULE PO SCH (21:55)
[2020-10-13] MEDS: DONEPEZIL 5 MG TABLET PO SCH (21:55)
[2020-10-13] MEDS ORDERED: INSULIN GLARGINE, 100 UNIT/ML CARTRIDGE SQ SCH (22:00)
--- NOTE | 2020-10-13 23:47 | NUR ---
MS/TELE/RN FOUND PATIENT VOMITED ORANGE COLORED LIQUID WITH SOME SOLID WHITE PARTICLES, PATIENT JUST RECEIVED MEDS BY GTUBE, NO RESIDUAL WAS NOTED PRIOR TO MEDS ADMINISTRATION, POSITIONED PATIENT SIDE LYING TO PREVENT ASPIRATION, STOPPED THE FEEDING FOR NOW. PATIENT NOTED TO BE GAGGING, ZOFRAN 4 MG IVP WAS GIVEN ORDERED. CALLED RT TO CHECK PATIENT PATIENT IS ON MECHANICAL VENTILATOR. WILL MONITOR PATIENT.
[2020-10-14] VITALS: BP 105/49
[2020-10-14] MEDS: INSULIN REGULAR, HUMAN 100 UNIT/ML 3 ML VIAL SQ PRN ×4 (02:32→17:31)
[2020-10-14 04:00] VITALS: BP 101/50
[2020-10-14] MEDS: NEPRO 1,000 ML BOTTLE GT PRN ×2 (04:26→22:38)
[2020-10-14] MEDS: METRONIDAZOLE 500 MG TABLET PO SCH ×3 (05:34→21:51)
[2020-10-14 06:27] LABS: BASOPHILS % (AUTO) 0.3 % (0.0-2.0); EOSINOPHILS % (AUTO) 1.9 % (0.0-6.0); HEMATOCRIT 24 % (39-51); HEMOGLOBIN 7.9 g/dL (13.5-17.5); LYMPHOCYTES # (AUTO) 1.4 /CMM (0.8-4.8); LYMPHOCYTES % (AUTO) 11.9 % (20.0-44.0); MEAN CORPUSCULAR HGB CONC 33 g/dl (31.0-36.0); MEAN CORPUSCULAR VOLUME 97 fL (80-96); MONOCYTES # (AUTO) 1.5 /CMM (0.1-1.30); MONOCYTES % (AUTO) 12.4 % (2.0-12.0); NEUTROPHILS # (AUTO) 8.8 /CMM (1.8-8.9); NEUTROPHILS % (AUTO) 73.5 % (43.0-81.0); PLATELET COUNT (AUTO) 381 /CMM (150-450)
[2020-10-14 06:49] LABS: CALCIUM, SERUM 9.8 mg/dL (8.5-10.1); CARBON DIOXIDE 28 mmol/L (21-32); CHLORIDE 97 mmol/L (98-107); CREATININE 6.3 mg/dL (0.6-1.3); MAGNESIUM 2.9 mg/dL (1.8-2.4); PHOSPHORUS 1.5 mg/dL (2.5-4.9); POTASSIUM 3.4 mmol/L (3.5-5.1); SODIUM SERUM 137 mmol/L (136-145)
[2020-10-14] MEDS: BLOOD SUGAR DIAGNOSTIC 1 EACH STRIP IN SCH ×4 (06:49→22:50)
[2020-10-14 06:52] LABS: GLUCOSE 361 mg/dL (74-106)
[2020-10-14 06:53] LABS: UREA NITROGEN, BLOOD 89 mg/dL (7-18)
--- NOTE | 2020-10-14 07:03 | NUR ---
MS/TELE/RN PATIENT APPEAR SLEEPING, APPEAR COMFORTABLE, NO SIGNS OF DISTRESS NOTE, HOB ELEVATED, GTUBE FEEDING INFUSING, NO RESIDUAL NOTED, ALL NEEDS ATTENDED AT THIS TIME, WILL CONTINUE TO MONITOR.
[2020-10-14] MEDS: ALBUTEROL SULFATE INH 18 GM HFA.AER.AD IH SCH ×3 (07:52→19:28)
[2020-10-14] MEDS: HEPARIN SODIUM, PORCINE 5000 UNITS/1 ML VIAL SQ SCH (09:00)
[2020-10-14] MEDS: VIT B CMPLX 3/FA/VIT C/BIOTIN 1 TAB TABLET PO SCH (09:46)
[2020-10-14] MEDS: ASCORBIC ACID 500 MG TABLET PO SCH (09:46)
[2020-10-14] MEDS: CHOLECALCIFEROL (VITAMIN D 3) 400 UNIT TABLET GT SCH (09:47)
[2020-10-14] MEDS: FERROUS SULFATE UDC 300 MG/5 ML UDC GT SCH (09:47)
[2020-10-14] MEDS: FAMOTIDINE (20 MG) 20 MG TABLET GT SCH ×2 (09:48→17:33)
[2020-10-14 09:49] VITALS: BP 84/50
[2020-10-14] MEDS: THERAHONEY GEL 1.5 OZ TUBE TP SCH (09:53)
[2020-10-14 12:00] VITALS: BP 87/52
[2020-10-14 16:21] VITALS: BP 95/48
--- NOTE | 2020-10-14 17:22 | NUR ---
RT NOTE PT REMAINS MECHANICALLY VENTILATED VIA CUFFED TRACHEOSTOMY TUBE. CUFF INFLATED. TRACH TUBE MIDLINE AND SECURE. VENTILATOR SETTINGS PRESCRIBED. ALARMS SET PER PROTOCOL AND AUDIBLE. VENT PLUGGED IN TO RED OUTLET. AMBU BAG AND BACK UP TRACH AT BED SIDE. NO DISTRESS NOTED. Addendum: 10/14/20 at 1722 by CLEMENT MCKINNEY RT Amended: Links added.
--- NOTE | 2020-10-14 17:30 | NUR ---
Patient noted BS 454mg/dL, made aware MD, no new order at this time. Given 20 units insulin from sliding scale, will continue to monitor.
--- NOTE | 2020-10-14 18:00 | NUR ---
RN Opening note Received patient in bed, awaken able to responds all stimuli, Pt does no c/o pain or distress. Skin is warm to touch keep clean/dry intact IV site, respiratory even and unlabored on ventilator O2sat 95-98%. Kept locked bed with elevated HOB for aspiration precaution and ensure airway and lowest bed foe safety. Call light within reach, will continue to monitor.
--- NOTE | 2020-10-14 18:00 | NUR ---
RN closing Patient in bed resting, does no appears distress or discomfort. Skin is warm to touch, keep clean/dry, intact midline on right upper arm. Respiratory even and unlabored on ventilator O2sat 95-99%. Kept elevated HOB for ensure air way and aspiration precaution and lowest bed for safety. Call light within reach, will endorse table games shift manager
[2020-10-14] MEDS ORDERED: GENTAMICIN 80 MG in IV D5W 50 ML IV PRN (19:00)
[2020-10-14 20:00] VITALS: BP 96/48
[2020-10-14] MEDS ORDERED: GENTAMICIN 160 MG in IV D5W 100 ML IV ONE (20:00)
--- NOTE | 2020-10-14 20:00 | NUR ---
RN OPENING NOTES RECEIVED PATIENT IN BED AWAKE, NON VERBAL, RESPONDING TO STIMULI. NO S/S OF RESPIRATORY DISTRESS, SKIN IS WARM TO TOUCH, DRY AND MIDLINE ON RIGHT UPPER HAND IS INTACT. RESPIRATION EVEN AND UNLABORED WITH EQUAL RISE AND FALL OF THE CHEST. BED IN LOWEST POSITION AND LOCKED. WILL CONTINUE TO MONITOR PATIENT THROUGHOUT SHIFT.
[2020-10-14] MEDS: ATORVASTATIN 10 MG TABLET GT SCH (21:51)
[2020-10-14] MEDS: DONEPEZIL 5 MG TABLET PO SCH (21:51)
[2020-10-14] MEDS: SENNOSIDES 8.6 MG TABLET GT SCH (21:51)
[2020-10-14] MEDS: RIFAMPIN 300 MG CAPSULE PO SCH (21:57)
[2020-10-14] MEDS ORDERED: INSULIN GLARGINE, 100 UNIT/ML CARTRIDGE SQ SCH (22:00)
[2020-10-15] VITALS: BP 98/51
[2020-10-15] MEDS: HEPARIN SODIUM, PORCINE 5000 UNITS/1 ML VIAL SQ SCH ×3 (00:03→22:20)
[2020-10-15] MEDS: ALBUTEROL SULFATE INH 18 GM HFA.AER.AD IH SCH ×4 (01:22→20:08)
[2020-10-15 04:00] VITALS: BP 115/51
[2020-10-15] MEDS: METRONIDAZOLE 500 MG TABLET PO SCH ×3 (05:33→22:29)
[2020-10-15] MEDS: BLOOD SUGAR DIAGNOSTIC 1 EACH STRIP IN SCH ×3 (06:42→17:41)
[2020-10-15 07:26] LABS: BASOPHILS % (AUTO) 0.2 % (0.0-2.0); EOSINOPHILS % (AUTO) 2.6 % (0.0-6.0); HEMATOCRIT 28 % (39-51); HEMOGLOBIN 8.6 g/dL (13.5-17.5); LYMPHOCYTES # (AUTO) 1.4 /CMM (0.8-4.8); LYMPHOCYTES % (AUTO) 9.5 % (20.0-44.0); MEAN CORPUSCULAR HGB CONC 31 g/dl (31.0-36.0); MEAN CORPUSCULAR VOLUME 97 fL (80-96); MONOCYTES # (AUTO) 1.3 /CMM (0.1-1.30); MONOCYTES % (AUTO) 9.1 % (2.0-12.0); NEUTROPHILS # (AUTO) 11.2 /CMM (1.8-8.9); NEUTROPHILS % (AUTO) 78.6 % (43.0-81.0); PLATELET COUNT (AUTO) 389 /CMM (150-450); RED BLOOD CELL COUNT(AUTO) 2.85 MIL/uL (4.5-6.0); WHITE BLOOD COUNT (AUTO) 14.3 K/uL (4.3-11.0)
--- NOTE | 2020-10-15 07:44 | NUR ---
FULL TIME BABYSITTER OPENING NOTES RECEIVED PT ASLEEP IN BED, EASILY AWAKENS. HOB ELEVATED. PT IS NON-VERBAL AND FOLLOWS SIMPLE COMMANDS. ON TRACH CONNECTED TO MECHANICAL VENT AT PRESCRIBED PARAMETERS: AC 16, TV550, FIO2 40%, PEEPS 5, SHILEY #7 TRACH, TOLERATING WELL WITH NO SOB NOTED. MIDLINE PRESENT IN THE LEFT UPPER ARM AND FLUSHES WELL. AV FISTULA PRESENT ON RIGHT UPPER ARM WITH POSITIVE BRUIT/SHRILL NOTED. G-TUBE IN PLACE AND PATENT WITH FEEDING OF NEPRO AT 55ML/HR IN PROGRESS, TOLERATING WELL. ASPIRATION PRECAUTIONS MAINTAINED. EXTERNAL MONITOR CURRENTLY SHOWS AT WITH 1ST DEGREE AV BLOCK,HR 102, , NO S/S OF CARDIAC DISTRESS NOTED. SAFETY MEASURES IN PLACE. CALL LIGHT WITHIN REACH. LOWERED BED. SIDE RAILS RAISED. WILL CONTINUE TO MONITORING.
[2020-10-15] MEDS: INSULIN REGULAR, HUMAN 100 UNIT/ML 3 ML VIAL SQ PRN ×3 (07:55→17:40)
[2020-10-15 08:00] VITALS: BP 96/43
--- NOTE | 2020-10-15 08:15 | NUR ---
RN CLOSING NOTES PATIENT IN BED AWAKE, NON VERBAL, RESPONDING TO STIMULI. NO S/S OF RESPIRATORY DISTRESS, SKIN IS WARM TO TOUCH, DRY AND MIDLINE ON RIGHT UPPER HAND IS INTACT. RESPIRATION EVEN AND UNLABORED WITH EQUAL RISE AND FALL OF THE CHEST. BED IN LOWEST POSITION AND LOCKED. ALL PATIENT CARE NEEDS MET ANTICIPATED. ENDORSED TO AM SHIFT
[2020-10-15 08:16] LABS: CALCIUM, SERUM 10.3 mg/dL (8.5-10.1); CARBON DIOXIDE 22 mmol/L (21-32); CHLORIDE 93 mmol/L (98-107); CREATININE 7.3 mg/dL (0.6-1.3); MAGNESIUM 3.2 mg/dL (1.8-2.4); PHOSPHORUS 2.1 mg/dL (2.5-4.9); POTASSIUM 3.3 mmol/L (3.5-5.1); SODIUM SERUM 132 mmol/L (136-145)
[2020-10-15 08:30] LABS: GLUCOSE 554 mg/dL (74-106); UREA NITROGEN, BLOOD 116 mg/dL (7-18)
[2020-10-15] MEDS: ASCORBIC ACID 500 MG TABLET PO SCH (09:07)
[2020-10-15] MEDS: CHOLECALCIFEROL (VITAMIN D 3) 400 UNIT TABLET GT SCH (09:07)
[2020-10-15] MEDS: FAMOTIDINE (20 MG) 20 MG TABLET GT SCH ×2 (09:07→16:45)
[2020-10-15] MEDS: FERROUS SULFATE UDC 300 MG/5 ML UDC GT SCH (09:07)
[2020-10-15] MEDS: VIT B CMPLX 3/FA/VIT C/BIOTIN 1 TAB TABLET PO SCH (09:09)
[2020-10-15] MEDS: THERAHONEY GEL 1.5 OZ TUBE TP SCH (09:14)
[2020-10-15 11:09] LABS: BAND % (MANUAL) 6 % (0.0-5.0); LYMPHOCYTES % (MANUAL) 6 % (16-48); METAMYELOCYTES % 1 % (0-0); MONOCYTES % (MANUAL) 8 % (0-11.0); MYELOCYTES % 1 % (0-0); NEUTROPHILS % (MANUAL) 78 (42-76)
[2020-10-15] MEDS ORDERED: NEUTRA PHOS 1 POWD.PACKET PO ONE (12:00)
--- NOTE | 2020-10-15 12:20 | NUR ---
RN NOTES PT NOTED WITH BS OF 463MG/DL, ADMINISTERED 20 UNITS OF REGULAR INSULIN PER SLIDING SCALE. [facility] MADE AWARE. WILL CONTINUE TO MONITOR.
[2020-10-15 13:19] LABS: BILIRUBIN,URINE NEGATIVE (NEGATIVE); COLOR,URINE YELLOW (YELLOW); LEUKOCYTE ESTERASE ,URINE MODERATE (NEGATIVE); NITRITE, URINE NEGATIVE (NEGATIVE); PROTEIN,URINE 100 mg/dl (NEGATIVE); UGLUCOSE NEGATIVE (NEGATIVE); UROBILINOGEN,URINE 0.2 EU/dL (0.2)
[2020-10-15] MEDS ORDERED: INSULIN REGULAR, HUMAN 100 UNIT/ML 3 ML VIAL SQ PRN (13:30)
[2020-10-15] MEDS ORDERED: DEXTROSE 50%-WATER 50 ML DISP.SYRIN IV PRN (14:00)
[2020-10-15 14:48] LABS: BACTERIA,URINE 4+ /HPF (None Seen); RBC,URINE 21-50 /HPF (0-2); SQUAMOUS EPITHELIAL CELL,UR 0-2 /HPF (None Seen); WBC,URINE 21-50 /HPF (0-3)
[2020-10-15] MEDS: PROSOURCE / PROSTAT (PYXIS) 30 ML UDC GT SCH ×3 (15:34→22:29)
[2020-10-15 16:00] VITALS: BP 98/46
[2020-10-15] MEDS: ACETAMINOPHEN 325 MG TABLET PO PRN (16:45)
--- NOTE | 2020-10-15 16:54 | NUR ---
RN NOTES PT NOTED WITH LOW GRADE FEVER OF 99.9F. PRN TYLENOL 650MG ADMINISTERED VIA G-TUBE, COOLING MEASURES DONE. WILL CONTINUE TO MONITOR.
--- NOTE | 2020-10-15 18:19 | NUR ---
RN NOTES PT NOTED WITH B/S OF 480MG/DL, RECHECKED AND WAS 439MG/DL. REGULAR INSULIN 20UNITS PER SLIDING SCALE GIVEN AND LOADER OPERATOR HA MADE AWARE. SAME REPORTED THAT PT'S LATEST TEMP WAS 101.1F. COOLING MEASURES MAINTAINED. WILL CONTINUE TO MONITOR.
--- NOTE | 2020-10-15 18:55 | NUR ---
DISCHARGING MACHINE OPERATOR CLOSING NOTES PT ASLEEP IN BED AT THIS TIME, EASILY AWAKENS. HOB ELEVATED. PT IS NON-VERBAL AND FOLLOWS SIMPLE COMMANDS. ON TRACH CONNECTED TO MECHANICAL VENT AT PRESCRIBED PARAMETERS: AC 16, TV550, FIO2 40%, PEEPS 5, SHILEY #7 TRACH, TOLERATING WELL WITH NO SOB NOTED. EXTERNAL MONITOR CURRENTLY SHOWS AT WITH 1ST DEGREE HB ,HR 90'S , NO S/S OF CARDIAC DISTRESS NOTED. MIDLINE PRESENT IN THE LEFT UPPER ARM AND FLUSHES WELL. AV FISTULA PRESENT ON RIGHT UPPER ARM WITH POSITIVE BRUIT/SHRILL NOTED. G-TUBE IN PLACE AND PATENT WITH FEEDING OF NEPRO AT 55ML/HR IN PROGRESS, TOLERATING WELL. ASPIRATION PRECAUTIONS MAINTAINED. PT TURNED AND REPOSITIONED Q 2HRS AND PRN. KEPT CLEAN, DRY AND COMFORTABLE. SAFETY MEASURES IN PLACE: BED IN LOWEST LOCKED POSITION W/ SR UP X3. CALL LIGHT WITHIN REACH. WILL ENDORSE TO NOVELTY CANDY MAKER NURSE FOR MEGAN.
[2020-10-15] MEDS: VANCOMYCIN POST DIALYSIS 500MG IV PRN ×2 (21:56)
[2020-10-15 22:00] VITALS: BP 100/59
[2020-10-15] MEDS ORDERED: INSULIN GLARGINE, 100 UNIT/ML CARTRIDGE SQ SCH (22:00)
[2020-10-15] MEDS: INSULIN GLARGINE, 100 UNIT/ML CARTRIDGE SQ SCH (22:28)
[2020-10-15] MEDS: SENNOSIDES 8.6 MG TABLET GT SCH (22:29)
[2020-10-15] MEDS: ATORVASTATIN 10 MG TABLET GT SCH (22:29)
[2020-10-15] MEDS: DONEPEZIL 5 MG TABLET PO SCH (22:29)
[2020-10-15] MEDS: RIFAMPIN 300 MG CAPSULE PO SCH (22:32)
[2020-10-16] VITALS: BP 118/63
[2020-10-16] MEDS: INSULIN REGULAR, HUMAN 100 UNIT/ML 3 ML VIAL SQ PRN ×4 (01:03→17:27)
[2020-10-16] MEDS: BLOOD SUGAR DIAGNOSTIC 1 EACH STRIP IN SCH ×4 (01:04→17:27)
[2020-10-16] MEDS: ALBUTEROL SULFATE INH 18 GM HFA.AER.AD IH SCH ×4 (01:17→19:46)
--- NOTE | 2020-10-16 01:21 | NUR ---
MS/TELE/RN DURING INITIAL SHIFT ROUNDING, RECEIVED PATIENT ON BED APPEAR SLEEPING, APPEAR COMFORTABLE, NO SIGNS OF DISTRESS NOTED, ON MECHANICAL VENTILATOR, G TUBE FEEDING NOT INFUSING AT THIS TIME, HOB ELEVATED, HD WAS IN PROGRESS AND WAS FINISHED AT AROUND 21:00. G TUBE FEEDING WAS RE STARTED AT 21:30. CURRENTLY, PATIENT APPEAR SLEEPING, NO NG IN CLINICAL CONDITION. WILL MONITOR.
[2020-10-16] MEDS: GENTAMICIN 120 MG in IV D5W 50 ML IV PRN (02:26)
[2020-10-16] MEDS: NEPRO 1,000 ML BOTTLE GT PRN (04:30)
[2020-10-16] MEDS: METRONIDAZOLE 500 MG TABLET PO SCH ×3 (04:32→21:51)
--- NOTE | 2020-10-16 06:48 | NUR ---
MS/TELE/RN PATIENT IS AWAKE, ,COMFORTABLE, NO SIGNS OF DISTRESS NOTED, HOB ELEVATED, G TUBE FEEDING INFUSING, ALL NEEDS ATTENDED AT THIS TIME, WILL CONTINUE TO MONITOR.
[2020-10-16 07:32] LABS: BASOPHILS % (AUTO) 0.3 % (0.0-2.0); EOSINOPHILS % (AUTO) 3.6 % (0.0-6.0); HEMATOCRIT 25 % (39-51); HEMOGLOBIN 7.7 g/dL (13.5-17.5); LYMPHOCYTES # (AUTO) 1.6 /CMM (0.8-4.8); MEAN CORPUSCULAR HGB CONC 31 g/dl (31.0-36.0); MEAN CORPUSCULAR VOLUME 99 fL (80-96); MONOCYTES # (AUTO) 1.1 /CMM (0.1-1.30); MONOCYTES % (AUTO) 7.6 % (2.0-12.0); NEUTROPHILS # (AUTO) 11.2 /CMM (1.8-8.9); NEUTROPHILS % (AUTO) 77.5 % (43.0-81.0); PLATELET COUNT (AUTO) 442 /CMM (150-450); RED BLOOD CELL COUNT(AUTO) 2.53 MIL/uL (4.5-6.0); WHITE BLOOD COUNT (AUTO) 14.5 K/uL (4.3-11.0)
--- NOTE | 2020-10-16 07:42 | NUR ---
PAYMENT COLLECTOR OPENING NOTES RECEIVED PT AWAKE IN BED IN NO ACUTE SIGNS OF DISTRESS. HOB ELEVATED. PT IS NON-VERBAL AND FOLLOWS SIMPLE COMMANDS. ON TRACH CONNECTED TO MECHANICAL VENT AT PRESCRIBED PARAMETERS: AC 16, TV550, FIO2 40%, PEEPS 5, SHILEY #7 TRACH, TOLERATING WELL WITH NO SOB NOTED. CARDIAC EXTERNAL MONITOR CURRENTLY SHOWS ST WITH HR OF 105, NO S/S OF CARDIAC DISTRESS NOTED. JAMIE MIDLINE INTACT AND FLUSHES WELL. AV FISTULA ON RIGHT UPPER ARM WITH POSITIVE BRUIT/SHRILL NOTED. G-TUBE IN PLACE AND PATENT WITH FEEDING OF NEPRO AT 55ML/HR IN PROGRESS, TOLERATING WELL. ASPIRATION PRECAUTIONS MAINTAINED. SAFETY MEASURES IN PLACE. CALL LIGHT WITHIN REACH. LOWERED BED. SIDE RAILS RAISED. WILL CONTINUE TO MONITORING.
[2020-10-16 08:00] VITALS: BP 100/56
[2020-10-16 08:29] LABS: CALCIUM, SERUM 9.5 mg/dL (8.5-10.1); CARBON DIOXIDE 29 mmol/L (21-32); CHLORIDE 98 mmol/L (98-107); CREATININE 5.6 mg/dL (0.6-1.3); GENTAMICIN,RANDOM 3.2 ug/ml (4.0-8.0); PHOSPHORUS 2.1 mg/dL (2.5-4.9); POTASSIUM 3.1 mmol/L (3.5-5.1); SODIUM SERUM 139 mmol/L (136-145)
[2020-10-16 08:42] LABS: VANCOMYCIN,RANDOM 19 ug/ml (18-26)
[2020-10-16 08:53] LABS: GLUCOSE 483 mg/dL (74-106); UREA NITROGEN, BLOOD 86 mg/dL (7-18)
[2020-10-16] MEDS: ASCORBIC ACID 500 MG TABLET PO SCH (08:59)
[2020-10-16] MEDS: FERROUS SULFATE UDC 300 MG/5 ML UDC GT SCH (09:00)
[2020-10-16] MEDS: PROSOURCE / PROSTAT (PYXIS) 30 ML UDC GT SCH ×4 (09:00→21:56)
[2020-10-16] MEDS: CHOLECALCIFEROL (VITAMIN D 3) 400 UNIT TABLET GT SCH (09:00)
[2020-10-16] MEDS: FAMOTIDINE (20 MG) 20 MG TABLET GT SCH ×2 (09:00→16:45)
[2020-10-16] MEDS: VIT B CMPLX 3/FA/VIT C/BIOTIN 1 TAB TABLET PO SCH (09:00)
[2020-10-16] MEDS: THERAHONEY GEL 1.5 OZ TUBE TP SCH (09:02)
[2020-10-16] MEDS: HEPARIN SODIUM, PORCINE 5000 UNITS/1 ML VIAL SQ SCH (11:51)
[2020-10-16 12:00] VITALS: BP 99/44
[2020-10-16 13:56] LABS: EOSINOPHILS % (MANUAL) 2 % (0-4); LYMPHOCYTES % (MANUAL) 7 % (16-48); METAMYELOCYTES % 1 % (0-0); MONOCYTES % (MANUAL) 8 % (0-11.0); MYELOCYTES % 1 % (0-0); NEUTROPHILS % (MANUAL) 81 (42-76)
[2020-10-16 16:00] VITALS: BP 103/50
--- NOTE | 2020-10-16 19:01 | NUR ---
CATTLE KILLER CLOSING NOTES PT ASLEEP IN BED AT THIS TIME, EASILY AWAKENS TO TACTILE STIMULI. HOB ELEVATED. PT IS NON-VERBAL AND FOLLOWS SIMPLE COMMANDS. ON TRACH CONNECTED TO MECHANICAL VENT AT PRESCRIBED PARAMETERS: AC 16, TV550, FIO2 40%, PEEPS 5, SHILEY #7 TRACH, TOLERATING WELL WITH NO SOB NOTED. EXTERNAL MONITOR CURRENTLY SHOWS SINUS TACH WITH HR OF 109. MIDLINE LEFT UPPER ARM INTACT AND FLUSHES WELL. AV FISTULA PRESENT ON RIGHT UPPER ARM WITH POSITIVE BRUIT/SHRILL NOTED. G-TUBE IN PLACE AND PATENT FEEDING OF NEPRO AT 55ML/HR STOPPED AT 1530 (18 HRS DAILY) TO BE RESTARTED AT 2130. ASPIRATION PRECAUTIONS MAINTAINED. PT TURNED AND REPOSITIONED Q 2HRS AND PRN. KEPT CLEAN, DRY AND COMFORTABLE. SAFETY MEASURES IN PLACE: BED IN LOWEST LOCKED POSITION W/ SR UP X3. CALL LIGHT WITHIN REACH. WILL ENDORSE TO LINE FIXER NURSE FOR MEGAN.
--- NOTE | 2020-10-16 19:30 | NUR ---
MS/TELE/RN RECEIVED PATIENT ON BED APPEAR SLEEPING, APPEAR COMFORTABLE, NO SIGNS OF DISTRESS NOTED, ON MECHANICAL VENTILATOR, G TUBE CLAMPED AT THIS TIME, FEEDING TO RE START AT 2130, HOB ELEVATED, WILL MONITOR.
[2020-10-16 20:00] VITALS: BP 111/43
[2020-10-16] MEDS: DONEPEZIL 5 MG TABLET PO SCH (21:51)
[2020-10-16] MEDS: ATORVASTATIN 10 MG TABLET GT SCH (21:51)
[2020-10-16] MEDS: SENNOSIDES 8.6 MG TABLET GT SCH (21:51)
[2020-10-16] MEDS: RIFAMPIN 300 MG CAPSULE PO SCH (21:51)
[2020-10-16] MEDS: ACETAMINOPHEN 325 MG TABLET PO PRN (21:52)
[2020-10-16] MEDS: INSULIN GLARGINE, 100 UNIT/ML CARTRIDGE SQ SCH (22:41)
[2020-10-17] VITALS (7 sets, daily range): BP systolic 85–111; BP diastolic 40–52
[2020-10-17] MEDS: INSULIN REGULAR, HUMAN 100 UNIT/ML 3 ML VIAL SQ PRN ×5 (00:03→23:24)
[2020-10-17] MEDS: BLOOD SUGAR DIAGNOSTIC 1 EACH STRIP IN SCH ×5 (00:09→23:22)
[2020-10-17] MEDS: ALBUTEROL SULFATE INH 18 GM HFA.AER.AD IH SCH ×4 (01:36→20:14)
--- NOTE | 2020-10-17 03:44 | NUR ---
MS/TELE/RN CHANGED MIDLINE DRESSING USING ASEPTIC TECHNIQUE.
[2020-10-17] MEDS: METRONIDAZOLE 500 MG TABLET PO SCH ×3 (05:15→21:35)
[2020-10-17] MEDS: NEPRO 1,000 ML BOTTLE GT PRN (05:26)
--- NOTE | 2020-10-17 06:50 | NUR ---
MS/TELE/RN MORNING CARE WAS DONE AT O500, BOWEL MOVEMENT WAS NOTED, SOFT BLACKISH IS COLOR, GOOD SKIN CARE WAS DONE, SACRAL WOUND CARE WAS DONE PER ORDER, ORAL CARE WAS DONE, G TUBE SITE CLEANSED WITH NS AND DRESSING WAS CHANGED, REPOSITIONED TO COMFORT, ALL HOB ELEVATED, G TUBE FEEDING INFUSING, NO RESIDUAL NOTED, ALL NEEDS ATTENDED AT THIS TIME, WILL CONTINUE TO MONITOR.
--- NOTE | 2020-10-17 07:30 | NUR ---
ms rn received on bed,non verbal patient, vent dependent. w/ g tube feeding,no distress noted,all needs attended.
--- NOTE | 2020-10-17 07:45 | NUR ---
WOUND CARE CONSULT/FOLLOW UP: PT SEEN FOR RE-EVALUATION OF SACRAL BUTTOCKS SCARRING WITH INCONTINENCE ASSOCIATED SKIN DAMAGE (OVER PREVIOUS SCARRING), PRESENT ON ADMISSION. PT NOTED TO HAVE RASH WITH OPEN SKIN OVER SCARRING WHICH EXTENDS TO BILATERAL BUTTOCKS. RECOMMENDATIONS MADE FOR SKIN PROTECTION AND CARE. DISCUSSED WITH NURSING STAFF. TREATMENT ORDERS UPDATED. MD IN AGREEMENT WITH PLAN OF CARE. PT REMAINS ON [place] ISOFLEX LOW AIRLOSS BED.
[2020-10-17 08:22] LABS: BASOPHILS # (AUTO) 0.1 /CMM (0.0-0.2); BASOPHILS % (AUTO) 0.4 % (0.0-2.0); EOSINOPHILS % (AUTO) 3.9 % (0.0-6.0); HEMATOCRIT 22 % (39-51); HEMOGLOBIN 7.2 g/dL (13.5-17.5); LYMPHOCYTES # (AUTO) 1.7 /CMM (0.8-4.8); LYMPHOCYTES % (AUTO) 12.9 % (20.0-44.0); MEAN CORPUSCULAR HGB CONC 32 g/dl (31.0-36.0); MEAN CORPUSCULAR VOLUME 98 fL (80-96); MONOCYTES # (AUTO) 1.1 /CMM (0.1-1.30); MONOCYTES % (AUTO) 8.2 % (2.0-12.0); NEUTROPHILS % (AUTO) 74.6 % (43.0-81.0); PLATELET COUNT (AUTO) 422 /CMM (150-450); RED BLOOD CELL COUNT(AUTO) 2.29 MIL/uL (4.5-6.0); WHITE BLOOD COUNT (AUTO) 13.5 K/uL (4.3-11.0)
[2020-10-17] MEDS: FERROUS SULFATE UDC 300 MG/5 ML UDC GT SCH (08:23)
[2020-10-17] MEDS: FAMOTIDINE (20 MG) 20 MG TABLET GT SCH ×2 (08:23→18:50)
[2020-10-17] MEDS: CHOLECALCIFEROL (VITAMIN D 3) 400 UNIT TABLET GT SCH (08:25)
[2020-10-17] MEDS: VIT B CMPLX 3/FA/VIT C/BIOTIN 1 TAB TABLET PO SCH (08:26)
[2020-10-17] MEDS: ASCORBIC ACID 500 MG TABLET PO SCH (08:26)
[2020-10-17 08:38] LABS: CALCIUM, SERUM 9.6 mg/dL (8.5-10.1); CARBON DIOXIDE 26 mmol/L (21-32); CHLORIDE 97 mmol/L (98-107); CREATININE 6.9 mg/dL (0.6-1.3); PHOSPHORUS 2.7 mg/dL (2.5-4.9); SODIUM SERUM 138 mmol/L (136-145)
[2020-10-17 09:45] LABS: GLUCOSE 408 mg/dL (74-106); UREA NITROGEN, BLOOD 110 mg/dL (7-18)
--- NOTE | 2020-10-17 10:00 | NUR ---
ms rn due meds given via g tube,gtube off at this time.
[2020-10-17] MEDS: PROSOURCE / PROSTAT (PYXIS) 30 ML UDC GT SCH ×4 (10:48→21:00)
[2020-10-17] MEDS: CLOTRIMAZOLE 1% 15 GM TUBE TP SCH ×2 (10:51→18:51)
[2020-10-17] MEDS: THERAHONEY GEL 1.5 OZ TUBE TP SCH (10:52)
[2020-10-17 11:09] LABS: EOSINOPHILS % (MANUAL) 4 % (0-4); LYMPHOCYTES % (MANUAL) 8 % (16-48); METAMYELOCYTES % 1 % (0-0); MONOCYTES % (MANUAL) 8 % (0-11.0); MYELOCYTES % 4 % (0-0); NEUTROPHILS % (MANUAL) 75 (42-76)
--- NOTE | 2020-10-17 12:00 | NUR ---
ms rn patient has fever, will monitor accordingly.
[2020-10-17] MEDS ORDERED: ALBUMIN 25% 25 GM in PREMIX 1 EA IV PRN (12:30)
[2020-10-17] MEDS: ACETAMINOPHEN 325 MG TABLET PO PRN ×2 (12:42→20:05)
--- NOTE | 2020-10-17 19:00 | NUR ---
ms rn on bed, no distress noted,all needs attended.
--- NOTE | 2020-10-17 19:45 | NUR ---
MS/RN OPENING NOTE RECEIVED PATIENT RESTING IN BED. NON-VERBAL AT BASELINE. CONTINUES ON MECHANICAL VENT WITH PATIENT TOLERATING SETTINGS WELL. IV ACCESS TO LEFT UPPER ARM INTACT AND PATENT. RIGHT UPPER ARM AV FISTULA WITH POSITIVE BRUIT AND THRILL. NO SIGNS OR SYMPTOMS OF RESPIRATORY DISTRESS NOTED. CALL LIGHT WITHIN REACH. ASPIRATION, FALL AND SAFETY PRECAUTIONS MAINTAINED. WILL CONTINUE TO MONITOR.
--- NOTE | 2020-10-17 20:14 | NUR ---
/VA/ANNABEL BP 85/48, TEMP 102.3, TYLENOL WAS GIVEN ORDERED, COOLING MEASURES STARTED, PLACED A CALL TO [facility], LEFT MESSAGE. Addendum: 10/17/20 at 2023 by AYDE HOLDER RN PLACED PATIENT ON TRENDELENBERG POSITION. FEEDING IS OFF AT THIS TIME.
--- NOTE | 2020-10-17 20:24 | NUR ---
MS/VA/ANNABEL CARRIZALES, ID METAL SPRAYER PROTECTIVE COATING, IS HERE, INFORMED HER ABOUT THE PATIENT CLINICAL CONDITION, RE: LOW BP AND TEMP 102.3, SHE WENT TO THE ROOM EXAMINED THE PATIENT.
--- NOTE | 2020-10-17 20:25 | NUR ---
RT NOTE [facility] Pt shows no signs of resp distress. pt sx'd for thick mod amt of pale yellow secretions. vent plugged into red outlet. alarms are set and audible. ambu bag and emergency spare trach bedside. will continue to monitor closely. Addendum: 10/17/20 at 2025 by ISSAC GARIBAY RT Amended: Links added.
--- NOTE | 2020-10-17 21:31 | NUR ---
MS/TELE/RN BP 111/52, HR 115, WILL CONTINUE TO MONITOR.
[2020-10-17] MEDS: ATORVASTATIN 10 MG TABLET GT SCH (21:35)
[2020-10-17] MEDS: SENNOSIDES 8.6 MG TABLET GT SCH (21:35)
[2020-10-17] MEDS: RIFAMPIN 300 MG CAPSULE PO SCH (21:36)
[2020-10-17] MEDS: DONEPEZIL 5 MG TABLET PO SCH (21:36)
[2020-10-17] MEDS: INSULIN GLARGINE, 100 UNIT/ML CARTRIDGE SQ SCH (21:43)
[2020-10-18] VITALS (13 sets, daily range): BP systolic 86–131; BP diastolic 44–74
[2020-10-18] MEDS ORDERED: IV NS 0.9% 500 ML IV ONE (00:30)
--- NOTE | 2020-10-18 00:53 | NUR ---
MS/TELE/RN RECEIVED ORDER FROM [facility] RY[facility], OF NS BOLUS 500 MLS.
--- NOTE | 2020-10-18 02:03 | NUR ---
MS/TELE/ANNABEL FALK NP, WAS HERE, CHECKED THE PATIENT, NOTED BP 84/42, HR 96, ENTERED ORDER OF MIDODRINE 10 MG GT TID. WILL ADMINISTER FIRST DOSE.
[2020-10-18] MEDS: MIDODRINE HCL (5MG) 5 MG TABLET PO SCH ×4 (02:18→17:00)
[2020-10-18] MEDS: ALBUTEROL SULFATE INH 18 GM HFA.AER.AD IH SCH ×4 (02:38→20:15)
--- NOTE | 2020-10-18 03:35 | NUR ---
MS/TELE/RN NS 500 MLS BOLUS FINISHED, BP 104/52, HR 93, PATIENT IS ALSO S/P MIDODRINE 10 MG GT. WILL CONTINUE TO MONITOR PATIENT.
[2020-10-18] MEDS: METRONIDAZOLE 500 MG TABLET PO SCH ×3 (04:19→21:20)
[2020-10-18] MEDS: NEPRO 1,000 ML BOTTLE GT PRN (05:22)
[2020-10-18] MEDS: BLOOD SUGAR DIAGNOSTIC 1 EACH STRIP IN SCH ×4 (05:24→23:42)
[2020-10-18] MEDS: INSULIN REGULAR, HUMAN 100 UNIT/ML 3 ML VIAL SQ PRN ×3 (05:41→23:40)
--- NOTE | 2020-10-18 06:08 | NUR ---
MS/TELE/RN INFORMED HD RN RE: LOW BP DURING THE SHIFT AND THE TREATMENT DONE, INFORMED WELL RE: VANCOMYCIN AND GENTAMICIN LEVEL TO BE DONE BEFORE HD.
--- NOTE | 2020-10-18 06:37 | NUR ---
MS/TELE/RN CLOSING NOTE PATIENT CURRENTLY RESTING IN BED. AWAKE, NON-VERBAL AT BASELINE. RESPIRATIONS EVEN AND UNLABORED. CONTINUES ON MECHANICAL VENT WITH PATIENT TOLERATING SETTINGS WELL. NO SIGNS OR SYMPTOMS OF RESPIRATORY DISTRESS NOTED. PATIENT CURRENTLY RECEIVING HEMODIALYSIS. VANCOMYCIN AND GENTAMYCIN LEVELS COLLECTED PRIOR TO HD. IV ACCESS TO LEFT UPPER ARM INTACT AND PATENT. RIGHT AV FISTULA WITH POSITIVE BRUIT AND THRILL. VS: BP 104/52 HR 101 RR 16 T 98.4 O2 SAT 96% MECH. VENT. CALL LIGHT WITHIN REACH. ASPIRATION, FALL AND SAFETY PRECAUTIONS MAINTAINED. WILL ENDORSE PLAN OF CARE TO ONCOMING SHIFT.
--- NOTE | 2020-10-18 07:00 | NUR ---
RN OPENING NOTE PT IS NON VERBAL, AROUSABLE TO NAME. PT IS ABLE TO MOVE HEAD IN RESPONSE TO NURSE QUESTIONS. PT IS CURRENTLY ON TRACH. NO SOB OR RESPIRATORY DISTRESS PRESENT, O2 SAT OF 95%. PT IS SINUS RHYTHM ON EXTERNAL MONITOR. PT IS INCONTINENT. PT CURRENTLY ON BEDREST. WOUNDS PRESENT ON BUTTOCKS AND RIGHT LOWER EXTREMITY. MIDLINE PRESENT IN LEFT UPPER ARM, AV FISTULA PRESENT IN RIGHT UPPER ARM. SAFETY MEASURES IN PLACE. SIDE RAILS RAISED. BED LOWERED. CALL LIGHT WITHIN REACH. WILL CONTINUE TO MONITOR.
[2020-10-18 07:23] LABS: BASOPHILS # (AUTO) 0.1 /CMM (0.0-0.2); BASOPHILS % (AUTO) 0.5 % (0.0-2.0); EOSINOPHILS % (AUTO) 3.5 % (0.0-6.0); LYMPHOCYTES # (AUTO) 1.5 /CMM (0.8-4.8); LYMPHOCYTES % (AUTO) 12.1 % (20.0-44.0); MEAN CORPUSCULAR HGB CONC 32 g/dl (31.0-36.0); MEAN CORPUSCULAR VOLUME 99 fL (80-96); MONOCYTES % (AUTO) 7.7 % (2.0-12.0); NEUTROPHILS # (AUTO) 9.6 /CMM (1.8-8.9); NEUTROPHILS % (AUTO) 76.2 % (43.0-81.0); PLATELET COUNT (AUTO) 371 /CMM (150-450); WHITE BLOOD COUNT (AUTO) 12.6 K/uL (4.3-11.0)
[2020-10-18 07:49] LABS: CALCIUM, SERUM 9.5 mg/dL (8.5-10.1); CARBON DIOXIDE 25 mmol/L (21-32); CHLORIDE 98 mmol/L (98-107); CREATININE 6.9 mg/dL (0.6-1.3); MAGNESIUM 3.1 mg/dL (1.8-2.4); SODIUM SERUM 138 mmol/L (136-145)
[2020-10-18 08:03] LABS: POTASSIUM 2.8 mmol/L (3.5-5.1)
[2020-10-18 08:06] LABS: GLUCOSE 374 mg/dL (74-106); UREA NITROGEN, BLOOD 123 mg/dL (7-18)
[2020-10-18 08:07] LABS: GENTAMICIN,TROUGH 2.5 ug/ml (0.2-2.0)
[2020-10-18 08:14] LABS: RED BLOOD CELL COUNT(AUTO) 1.89 MIL/uL (4.5-6.0)
[2020-10-18 08:16] LABS: HEMATOCRIT 19 % (39-51)
[2020-10-18] MEDS: ASCORBIC ACID 500 MG TABLET PO SCH (08:54)
[2020-10-18] MEDS: CHOLECALCIFEROL (VITAMIN D 3) 400 UNIT TABLET GT SCH (08:54)
[2020-10-18] MEDS: FAMOTIDINE (20 MG) 20 MG TABLET GT SCH ×2 (08:54→17:13)
[2020-10-18] MEDS: VIT B CMPLX 3/FA/VIT C/BIOTIN 1 TAB TABLET PO SCH (08:54)
[2020-10-18] MEDS: FERROUS SULFATE UDC 300 MG/5 ML UDC GT SCH (08:55)
[2020-10-18] MEDS: CLOTRIMAZOLE 1% 15 GM TUBE TP SCH ×2 (09:03→17:06)
[2020-10-18] MEDS: THERAHONEY GEL 1.5 OZ TUBE TP SCH (09:03)
[2020-10-18] MEDS: PROSOURCE / PROSTAT (PYXIS) 30 ML UDC GT SCH ×4 (09:03→21:20)
[2020-10-18] MEDS: INSULIN GLARGINE, 100 UNIT/ML CARTRIDGE SQ SCH ×2 (10:30→23:42)
[2020-10-18] MEDS: POTASSIUM CHLORIDE 20 MEQ POWDER PACKET GT SCH ×2 (11:07→11:53)
[2020-10-18 12:10] LABS: EOSINOPHILS % (MANUAL) 3 % (0-4); LYMPHOCYTES % (MANUAL) 16 % (16-48); MONOCYTES % (MANUAL) 1 % (0-11.0); NEUTROPHILS % (MANUAL) 80 (42-76)
[2020-10-18] MEDS: ACETAMINOPHEN 325 MG TABLET PO PRN (14:03)
[2020-10-18] MEDS: VANCOMYCIN POST DIALYSIS 500MG IV PRN ×2 (16:52)
--- NOTE | 2020-10-18 18:46 | NUR ---
RN CLOSING NOTE PT IS NON VERBAL, AROUSABLE TO NAME. PT IS ABLE TO MOVE HEAD IN RESPONSE TO NURSE QUESTIONS. PT IS CURRENTLY ON TRACH. NO SOB OR RESPIRATORY DISTRESS PRESENT, O2 SAT OF 9O'S%. PT IS SINUS RHYTHM ON EXTERNAL MONITOR. PT IS INCONTINENT. PT CURRENTLY ON BEDREST. WOUNDS PRESENT ON BUTTOCKS AND RIGHT LOWER EXTREMITY. MIDLINE PRESENT IN LEFT UPPER ARM, AV FISTULA PRESENT IN RIGHT UPPER ARM. SAFETY MEASURES IN PLACE. SIDE RAILS RAISED. BED LOWERED. CALL LIGHT WITHIN REACH. ROUTINE MEDS GIVEN. REPORT GIVEN TO NIGHT NURSE.
[2020-10-18] MEDS: DONEPEZIL 5 MG TABLET PO SCH (21:20)
[2020-10-18] MEDS: SENNOSIDES 8.6 MG TABLET GT SCH (21:20)
[2020-10-18] MEDS: ATORVASTATIN 10 MG TABLET GT SCH (21:20)
[2020-10-18] MEDS: RIFAMPIN 300 MG CAPSULE PO SCH (21:20)
--- NOTE | 2020-10-18 21:30 | NUR ---
GT TUBE FEEDING NEPRO RESTARTED AT 55ML/HOUR. GT SITE DRESSING CHANGED, NO SKIN IRRITATION NOTED, NO DRAINAGE NOTED. HOB ELEVATED AT ALL TIMES.
[2020-10-19] VITALS: BP 101/52
[2020-10-19] MEDS: ALBUTEROL SULFATE INH 18 GM HFA.AER.AD IH SCH ×4 (02:06→20:14)
[2020-10-19] MEDS: CLOTRIMAZOLE 1% 15 GM TUBE TP SCH ×2 (03:04→16:51)
[2020-10-19 04:00] VITALS: BP 119/59
[2020-10-19] MEDS: METRONIDAZOLE 500 MG TABLET PO SCH ×3 (05:29→21:40)
[2020-10-19] MEDS: BLOOD SUGAR DIAGNOSTIC 1 EACH STRIP IN SCH ×3 (05:40→17:11)
[2020-10-19] MEDS: INSULIN REGULAR, HUMAN 100 UNIT/ML 3 ML VIAL SQ PRN ×4 (05:40→22:20)
--- NOTE | 2020-10-19 07:00 | NUR ---
REELING MACHINE SETUP OPERATOR CLOSING NOTES: PATIENT IN BED, NO S/S OF DISTRESS NOTED. NOT IN PAIN. BED IN LOWEST AND LOCKED POSITION. BED ALARM ON. HOB ELEVATED AT ALL TIMES. NO GT RESIDUAL TODAY. GT FEEDING RUNNING AT 55ML/HR. WOUND TREATMENT AND DRESSING CHANGED DONE. OFFLOADED. TURNED AND REPOSITIONED [id number].
--- NOTE | 2020-10-19 07:25 | NUR ---
LOG CHAIN FEEDER OPENING NOTES PATIENT IS IN BED, AWAKE, OPENS EYES, NON VERBAL BUT LOOKS IN GENERAL DIRECTION OF PERSON CALLING HIS NAME. CURRENTLY ON TRACH AND VENT, SETTINGS TOLERATED, NO SOB OR RESPIRATORY DISTRESS. ON TELE MONITORING, READING OF SR/ST, NO CARDIAC DISTRESS. MIDLINE ON LEFT UPPER ARM INTACT AND PATENT; AV FISTULA ON RIGHT UPPER ARM INTACT. SAFETY MEASURES IN PLACE: BED LOCKED AND ON LOWEST POSITION, SIDE RAILS UP X2, CALL LIGHT WITHIN REACH. WILL CONTINUE TO MONITOR.
[2020-10-19 07:45] LABS: BASOPHILS % (AUTO) 0.4 % (0.0-2.0); EOSINOPHILS % (AUTO) 3.1 % (0.0-6.0); HEMATOCRIT 26 % (39-51); HEMOGLOBIN 8.3 g/dL (13.5-17.5); LYMPHOCYTES # (AUTO) 1.4 /CMM (0.8-4.8); LYMPHOCYTES % (AUTO) 11.8 % (20.0-44.0); MEAN CORPUSCULAR HGB CONC 31 g/dl (31.0-36.0); MEAN CORPUSCULAR VOLUME 97 fL (80-96); MONOCYTES # (AUTO) 0.8 /CMM (0.1-1.30); MONOCYTES % (AUTO) 6.6 % (2.0-12.0); NEUTROPHILS # (AUTO) 9.3 /CMM (1.8-8.9); NEUTROPHILS % (AUTO) 78.1 % (43.0-81.0); PLATELET COUNT (AUTO) 411 /CMM (150-450); RED BLOOD CELL COUNT(AUTO) 2.71 MIL/uL (4.5-6.0); WHITE BLOOD COUNT (AUTO) 11.9 K/uL (4.3-11.0)
[2020-10-19 08:00] VITALS: BP 158/106
[2020-10-19] MEDS: CHOLECALCIFEROL (VITAMIN D 3) 400 UNIT TABLET GT SCH (08:30)
[2020-10-19] MEDS: FAMOTIDINE (20 MG) 20 MG TABLET GT SCH ×2 (08:31→16:51)
[2020-10-19] MEDS: VIT B CMPLX 3/FA/VIT C/BIOTIN 1 TAB TABLET PO SCH (08:31)
[2020-10-19] MEDS: ASCORBIC ACID 500 MG TABLET PO SCH (08:31)
[2020-10-19] MEDS: FERROUS SULFATE UDC 300 MG/5 ML UDC GT SCH (08:31)
[2020-10-19] MEDS: MIDODRINE HCL (5MG) 5 MG TABLET PO SCH ×3 (08:32→16:51)
[2020-10-19] MEDS: INSULIN GLARGINE, 100 UNIT/ML CARTRIDGE SQ SCH ×2 (08:34→22:19)
[2020-10-19] MEDS: THERAHONEY GEL 1.5 OZ TUBE TP SCH (08:35)
[2020-10-19] MEDS: PROSOURCE / PROSTAT (PYXIS) 30 ML UDC GT SCH ×4 (08:35→21:41)
[2020-10-19 08:51] LABS: CARBON DIOXIDE 25 mmol/L (21-32); CHLORIDE 97 mmol/L (98-107); MAGNESIUM 2.7 mg/dL (1.8-2.4); PHOSPHORUS 3.6 mg/dL (2.5-4.9); POTASSIUM 3.7 mmol/L (3.5-5.1); SODIUM SERUM 138 mmol/L (136-145)
[2020-10-19 08:53] LABS: GLUCOSE 434 mg/dL (74-106); UREA NITROGEN, BLOOD 95 mg/dL (7-18)
[2020-10-19] MEDS: NEPRO 1,000 ML BOTTLE GT PRN (11:36)
[2020-10-19] MEDS: GENTAMICIN 120 MG in IV D5W 50 ML IV PRN (11:36)
--- NOTE | 2020-10-19 14:11 | NUR ---
RN NOTES PATIENT WAS SEEN BY DR. VILLEDA; PERFORMED RIGHT KNEE FLUID ASPIRATION. ASPIRATE OBTAINED AND PER MD, DO GRAM STAIN AND CULTURE.
[2020-10-19] MEDS: ACETAMINOPHEN 325 MG TABLET PO PRN (14:23)
[2020-10-19 16:00] VITALS: BP 122/68
--- NOTE | 2020-10-19 19:20 | NUR ---
DIRECTOR DISTRIBUTION CLOSING NOTES PATIENT IS IN BED SLEEPING, ABLE TO OPENS EYES, RESPONDS TO VERBAL AND TACTILE SENSATIONS. TRACH AND VENT, W/ SETTINGS TOLERATED, NO SOB OR RESPIRATORY DISTRESS NOTED. ON TELE MONITORING, READING OF SR/ST HR OF 110, NO CARDIAC DISTRESS. MIDLINE ON LEFT UPPER ARM INTACT AND PATENT, GIVEN GENTAMICIN TODAY PER PHARMACY. AV FISTULA ON RIGHT UPPER ARM INTACT. SAFETY MEASURES MAINTAINED: BED LOCKED AND ON LOWEST POSITION, SIDE RAILS UP X2, CALL LIGHT WITHIN REACH. ENDORSED TO KETTLE WORKER RN FOR MEGAN.
--- NOTE | 2020-10-19 20:00 | NUR ---
BARREL LINE OPERATOR NOTE: PATIENT RESTING IN BED, NO ACUTE DISTRESS NOTED. BREATHING EVEN AND UNLABORED, NO SOB NOTED. VENT SETTING IN PLACE. MIDLINE TO JAMIE IN PLACE. AV FISTULA TO MAHESH IN PLACE, NO BLEEDING NOTED. G-TUBE IN PLACE, FEEDING OFF AT THIS TIME. HOB ELEVATED. NO S/S OF HYPER/HYPOGLYCEMIA NOTED. BED LOCKED AND IN LOWEST POSITION, CALL LIGHT IN REACH. WILL CONTINUE TO MONITOR THROUGHOUT SHIFT.
[2020-10-19 21:29] VITALS: BP 107/55
[2020-10-19] MEDS: SENNOSIDES 8.6 MG TABLET GT SCH (21:40)
[2020-10-19] MEDS: DONEPEZIL 5 MG TABLET PO SCH (21:40)
[2020-10-19] MEDS: RIFAMPIN 300 MG CAPSULE PO SCH (21:40)
[2020-10-19] MEDS: ATORVASTATIN 10 MG TABLET GT SCH (21:40)
--- NOTE | 2020-10-19 22:20 | NUR ---
BINDER LAYER NOTE: PATIENT BLOOD SUGAR LEVEL 372MG/DL, TO RECEIVE 20 UNITS OF INSULIN PER SLIDING SCALE AND LANTUS 34 UNITS PER MD ORDER. NO S/S OF HYPER/HYPOGLYCEMIA NOTED. PATIENT ON GTUBE FEEDING ORDERED. WILL CONTINUE TO MONITOR THROUGHOUT SHIFT.
[2020-10-20] MEDS: BLOOD SUGAR DIAGNOSTIC 1 EACH STRIP IN SCH ×5 (00:15→23:43)
[2020-10-20 00:48] VITALS: BP 122/65
[2020-10-20] MEDS: ACETAMINOPHEN 325 MG TABLET PO PRN (01:17)
[2020-10-20] MEDS: ALBUTEROL SULFATE INH 18 GM HFA.AER.AD IH SCH ×4 (02:19→19:51)
[2020-10-20 04:15] VITALS: BP 143/78
[2020-10-20] MEDS: METRONIDAZOLE 500 MG TABLET PO SCH ×2 (05:11→13:51)
[2020-10-20 06:00] VITALS: BP 143/78
[2020-10-20] MEDS: INSULIN REGULAR, HUMAN 100 UNIT/ML 3 ML VIAL SQ PRN ×4 (06:03→23:37)
--- NOTE | 2020-10-20 06:30 | NUR ---
FORESTRY AND WILDLIFE MANAGER NOTE: PATIENT RESTING IN BED, NO ACUTE DISTRESS NOTED. BREATHING EVEN AND UNLABORED, NO SOB NOTED. VENT SETTING IN PLACE. MIDLINE TO JAMIE IN PLACE. AV FISTULA TO MAHESH IN PLACE, NO BLEEDING NOTED. G-TUBE IN PLACE, INFUSING NEPHRO AT 55ML/HR, WITH NO RESIDUAL. HOB ELEVATED. PATIENT BLOOD SUGAR LEVEL 375MG/DL, TO RECEIVE 20 UNITS OF INSULIN PER SLIDING SCALE. NO S/S OF HYPERGLYCEMIA NOTED. BED LOCKED AND IN LOWEST POSITION, CALL LIGHT IN REACH. WILL ENDORSE TO DAY NURSE TO CONTINUE WITH PLAN OF CARE.
[2020-10-20 07:17] LABS: BASOPHILS % (AUTO) 0.4 % (0.0-2.0); EOSINOPHILS % (AUTO) 2.9 % (0.0-6.0); HEMATOCRIT 26 % (39-51); HEMOGLOBIN 8.3 g/dL (13.5-17.5); LYMPHOCYTES # (AUTO) 1.1 /CMM (0.8-4.8); LYMPHOCYTES % (AUTO) 9.5 % (20.0-44.0); MEAN CORPUSCULAR HGB CONC 32 g/dl (31.0-36.0); MEAN CORPUSCULAR VOLUME 99 fL (80-96); MONOCYTES % (AUTO) 8.2 % (2.0-12.0); NEUTROPHILS # (AUTO) 9.3 /CMM (1.8-8.9); PLATELET COUNT (AUTO) 477 /CMM (150-450); RED BLOOD CELL COUNT(AUTO) 2.62 MIL/uL (4.5-6.0); WHITE BLOOD COUNT (AUTO) 11.8 K/uL (4.3-11.0)
--- NOTE | 2020-10-20 08:13 | NUR ---
FIELD RESEARCH ASSOCIATE OPENING NOTE PATIENT IS IN NO ACUTE DISTRESS. NO SOB NOTED. PATIENT IN ON THE VENT. TOLERATING WELL. PATIENT IS BEDBOUND. PATIENT IS ON TELE MONITOR READING SR 90. SAFETY PRECAUTIONS ARE IN PLACE. BED IN THE LOWEST POSITION. SIDE RAILS ARE UP, CALL LIGHT WITHIN REACH, WILL CONTINUE TO MONITOR CLOSELY.
[2020-10-20] MEDS: MIDODRINE HCL (5MG) 5 MG TABLET PO SCH ×3 (09:00→16:38)
[2020-10-20] MEDS: THERAHONEY GEL 1.5 OZ TUBE TP SCH (09:00)
[2020-10-20] MEDS: VIT B CMPLX 3/FA/VIT C/BIOTIN 1 TAB TABLET PO SCH (09:00)
[2020-10-20 10:25] LABS: GENTAMICIN,TROUGH 3.1 ug/ml (0.2-2.0)
[2020-10-20] MEDS: CLOTRIMAZOLE 1% 15 GM TUBE TP SCH ×2 (10:26→16:40)
[2020-10-20] MEDS: PROSOURCE / PROSTAT (PYXIS) 30 ML UDC GT SCH ×4 (10:27→22:48)
[2020-10-20] MEDS: FERROUS SULFATE UDC 300 MG/5 ML UDC GT SCH (10:27)
[2020-10-20] MEDS: ASCORBIC ACID 500 MG TABLET PO SCH (10:27)
[2020-10-20] MEDS: FAMOTIDINE (20 MG) 20 MG TABLET GT SCH ×2 (10:27→16:38)
[2020-10-20 10:28] LABS: CARBON DIOXIDE 21 mmol/L (21-32); CHLORIDE 96 mmol/L (98-107); POTASSIUM 4.3 mmol/L (3.5-5.1); SODIUM SERUM 136 mmol/L (136-145)
[2020-10-20] MEDS: CHOLECALCIFEROL (VITAMIN D 3) 400 UNIT TABLET GT SCH (10:31)
[2020-10-20 10:34] LABS: CALCIUM, SERUM 10.1 mg/dL (8.5-10.1); GLUCOSE 413 mg/dL (74-106)
[2020-10-20 10:35] LABS: UREA NITROGEN, BLOOD 106 mg/dL (7-18)
[2020-10-20] MEDS: INSULIN GLARGINE, 100 UNIT/ML CARTRIDGE SQ SCH ×3 (10:36→22:45)
--- NOTE | 2020-10-20 10:39 | NUR ---
PUBLIC HEALTH STAFF NURSE NOTE SCANNED WRONG LANTUS DID NOT ADMINISTER 34 UNITS
--- NOTE | 2020-10-20 11:00 | NUR ---
ACCURACY EXPERT NOTE DID NOT ADMINISTER MIDORINE PATIENT IS ON DIALYSIS.
[2020-10-20] MEDS: NEPRO 1,000 ML BOTTLE GT PRN (11:21)
--- NOTE | 2020-10-20 13:43 | NUR ---
HUMAN RESOURCES BENEFITS MANAGER NOTE PATIENT IS POST DIALYSIS WILL ADMINISTER VANCOMYCIN AND WITHHOLD GENTAMICIN DUE TO LEVEL BEING 3.1
[2020-10-20] MEDS: VANCOMYCIN POST DIALYSIS 500MG IV PRN ×2 (13:52)
[2020-10-20 16:00] VITALS: BP 91/53
[2020-10-20] MEDS: GENTAMICIN 120 MG in IV D5W 50 ML IV PRN (17:14)
--- NOTE | 2020-10-20 19:53 | NUR ---
CAREER AND GUIDANCE COUNSELOR CLOSING NOTE PATIENT IS IN NO ACUTE DISTRESS. NO SOB NOTED. PATIENT IN ON THE VENT. TOLERATING WELL. PATIENT IS BEDBOUND. PATIENT IS ON TELE MONITOR READING SR 100. SAFETY PRECAUTIONS ARE IN PLACE. BED IN THE LOWEST POSITION. SIDE RAILS ARE UP, CALL LIGHT WITHIN REACH. ENDORSE PATIENT TO FARM MANAGEMENT AGENT NURSE FOR MEGAN.
[2020-10-20 20:00] VITALS: BP 98/54
--- NOTE | 2020-10-20 20:00 | NUR ---
NURSES OPENING NOTES: SEEN PATIENT IN THE ROOM, WITH TRACH CONNECTED TO MECHANICAL VENT WITH THE FOLLOWING SETTINGS: AC16, FiO2- 40% TV 550, PEEP 5. PATIENT WITH RIGHT AV FISTULA HEMODIALYSIS ACCESS, WITH IVF ON LEFT UPPER MIDLINE. WITH RESTRAINT ON LEFT ARM PATIENT HAS THE TENDENCY TO PULL TUBES AND LINES. WILL ADMINISTER ORDERED MEDICATIONS. SAFETY AD FALL PRECAUTIONS OBSERVED. WILL CONTINUE TO MONITOR PATIENT.
[2020-10-20] MEDS: ATORVASTATIN 10 MG TABLET GT SCH (22:38)
[2020-10-20] MEDS: DONEPEZIL 5 MG TABLET PO SCH (22:39)
[2020-10-20] MEDS: SENNOSIDES 8.6 MG TABLET GT SCH (22:39)
[2020-10-20] MEDS: RIFAMPIN 300 MG CAPSULE PO SCH (22:46)
[2020-10-21] VITALS: BP_SYST 112; BP_SYST 117; BP_DIAS 76
[2020-10-21] MEDS: ALBUTEROL SULFATE INH 18 GM HFA.AER.AD IH SCH ×4 (01:36→20:14)
[2020-10-21 04:00] VITALS: BP 102/58
[2020-10-21] MEDS: BLOOD SUGAR DIAGNOSTIC 1 EACH STRIP IN SCH ×3 (05:36→17:44)
[2020-10-21] MEDS: INSULIN REGULAR, HUMAN 100 UNIT/ML 3 ML VIAL SQ PRN ×4 (05:41→22:48)
[2020-10-21 06:53] LABS: BASOPHILS % (AUTO) 0.2 % (0.0-2.0); EOSINOPHILS % (AUTO) 2.2 % (0.0-6.0); HEMATOCRIT 23 % (39-51); HEMOGLOBIN 7.4 g/dL (13.5-17.5); LYMPHOCYTES # (AUTO) 1.2 /CMM (0.8-4.8); LYMPHOCYTES % (AUTO) 10.6 % (20.0-44.0); MEAN CORPUSCULAR HGB CONC 32 g/dl (31.0-36.0); MEAN CORPUSCULAR VOLUME 97 fL (80-96); MONOCYTES % (AUTO) 9.2 % (2.0-12.0); NEUTROPHILS # (AUTO) 8.6 /CMM (1.8-8.9); NEUTROPHILS % (AUTO) 77.8 % (43.0-81.0); PLATELET COUNT (AUTO) 467 /CMM (150-450); WHITE BLOOD COUNT (AUTO) 11.1 K/uL (4.3-11.0)
--- NOTE | 2020-10-21 06:56 | NUR ---
CLOSING NOTES: PATIENT IN THE ROOM, WITH TRACH CONNECTED TO MECHANICAL VENT WITH THE FOLLOWING SETTINGS SHILEY 7 AC16 [id number]% TV550 PEEP5. SATURATING AT 95%. G TUBE FEEDING ON GOING AT 55ML/HR. ADMINISTERED ALL ORDERED MEDICATIONS SCHEDULED. SAFETY AND FALL PRECAUTIONS OBSERVED. BLOOD GLUCOSE LEVELS CHECKED. CORRESPONDING INSULIN GIVEN PER ORDER. KEPT PATIENT'S SKIN CLEAN AND DRY. WILL ENDORSE PATIENT'S CARE TO DAY SHIFT NURSE.
[2020-10-21 07:38] LABS: CALCIUM, SERUM 9.9 mg/dL (8.5-10.1); CARBON DIOXIDE 29 mmol/L (21-32); CHLORIDE 100 mmol/L (98-107); CREATININE 6.4 mg/dL (0.6-1.3); GLUCOSE 338 mg/dL (74-106); POTASSIUM 3.4 mmol/L (3.5-5.1); SODIUM SERUM 139 mmol/L (136-145)
[2020-10-21 07:41] LABS: UREA NITROGEN, BLOOD 92 mg/dL (7-18)
--- NOTE | 2020-10-21 08:06 | NUR ---
POULTRY SERVICE TECHNICIAN NOTE PATIENT IN BED RESTING COMFORTABLY. PATIENT ON VENT, TOLERATING VENT SETTINGS WELL. PATIENT IN NO ACUTE DISTRESS. NO SOB NOTED. PATIENT BREATHING IS EVEN AND UNLABORED. PATIENT SAFETY PRECAUTIONS IN PLACE. PATIENT BED IS LOCKED AND IN LOWEST POSITION. CALL LIGHT WITHIN REACH. WILL CONTINUE TO MONITOR.
[2020-10-21 08:34] VITALS: BP 113/58
[2020-10-21] MEDS: INSULIN GLARGINE, 100 UNIT/ML CARTRIDGE SQ SCH ×2 (09:16→22:53)
[2020-10-21] MEDS: THERAHONEY GEL 1.5 OZ TUBE TP SCH (09:17)
[2020-10-21] MEDS: CLOTRIMAZOLE 1% 15 GM TUBE TP SCH ×2 (09:17→17:50)
[2020-10-21] MEDS: VIT B CMPLX 3/FA/VIT C/BIOTIN 1 TAB TABLET PO SCH (09:23)
[2020-10-21] MEDS: FERROUS SULFATE UDC 300 MG/5 ML UDC GT SCH (09:23)
[2020-10-21] MEDS: CHOLECALCIFEROL (VITAMIN D 3) 400 UNIT TABLET GT SCH (09:23)
[2020-10-21] MEDS: PROSOURCE / PROSTAT (PYXIS) 30 ML UDC GT SCH ×4 (09:23→21:14)
[2020-10-21] MEDS: FAMOTIDINE (20 MG) 20 MG TABLET GT SCH ×2 (09:23→17:50)
[2020-10-21] MEDS: ASCORBIC ACID 500 MG TABLET PO SCH (09:23)
[2020-10-21] MEDS: MIDODRINE HCL (5MG) 5 MG TABLET PO SCH ×3 (09:23→17:49)
[2020-10-21] MEDS: ACETAMINOPHEN 325 MG TABLET PO PRN ×2 (09:31→17:49)
[2020-10-21] MEDS ORDERED: POTASSIUM CHLORIDE 20 MEQ POWDER PACKET GT ONE (10:00)
[2020-10-21 16:00] VITALS: BP 118/62
--- NOTE | 2020-10-21 17:49 | NUR ---
PRIMER AND POWDER CANNING LEADER NOTE PATIENT TEMPERATURE WAS 102.5F. TYLENOL TO BE GIVEN AND IMPLEMENTED COOLING MEASURES.
--- NOTE | 2020-10-21 19:11 | NUR ---
PRETZEL TWISTING MACHINE OPERATOR NOTE PATIENT IN BED RESTING COMFORTABLY. PATIENT ON VENT, TOLERATING VENT SETTINGS WELL. PATIENT IN NO ACUTE DISTRESS. NO SOB NOTED. PATIENT BREATHING IS EVEN AND UNLABORED. PATIENT ON CARDIAC MONITORING READING SINUS TACHYCARDIA HR 108. PATIENT KEPT CLEAN, DRY, AND COMFORTABLE THROUGHOUT SHIFT. PATIENT SAFETY PRECAUTIONS IN PLACE. PATIENT BED IS LOCKED AND IN LOWEST POSITION. CALL LIGHT WITHIN REACH. WILL ENDORSE CARE TO PM SHIFT FOR MEGAN.
--- NOTE | 2020-10-21 19:38 | NUR ---
RN OPENING NOTE PT RECEIVED BEDSIDE. ALERT AND ORIENTED X2. UZBEK SPEAKING. ABLE TO MAKE BASIC NEEDS KNOWN. PT ON 4L NASAL CANNULA. TOLERATING WELL. SUCTION NEEDED. PT SINUS RHYTHM 80-90. MORTON CATHETER INTACT, CLEAN. EMPTIED VIA PREVIOUS SHIFT. SEE HYDROELECTRIC STATION CHIEF NOTES. G TUBE INTACT, DRY. MINIMAL RESIDUE. RUNNING JEVITY 1.2 @ 65 ML/ HR. WILL TURN OFF AT 0700. IV ACCESS RAC #18 RUNNING NS 75 ML/ HR. INTACT, PATENT, FLUSHES WELL. NOP OCCLUSIONS. NO INFILTRATIONS. SAFETY PRECAUTIONS IN PLACE. BED LOCKED. LOWEST POSITION. BED ALARM ON. SEMI FOWLERS. CALL LIGHT WITHIN REACH. WILL CONTINUE TO MONITOR. WILL CONTINUE PLAN OF CARE.
--- NOTE | 2020-10-21 19:46 | NUR ---
RN OPENING NOTE PT RECEIVED BEDSIDE. PT WITH TRACH CONNECTED TO MECHANICAL VENT WITH THE FOLLOWING SETTINGS: AC16, FiO2- 40% TV 550, PEEP 5. PATIENT WITH RIGHT AV FISTULA HEMODIALYSIS ACCESS, WITH IVF ON LEFT UPPER MIDLINE. WITH RESTRAINT ON LEFT ARM PATIENT HAS THE TENDENCY TO PULL TUBES AND LINES. WILL ADMINISTER ORDERED MEDICATIONS. SAFETY AD FALL PRECAUTIONS OBSERVED. WILL CONTINUE TO MONITOR PATIENT. WILL CONTINUE PLAN OF CARE.
[2020-10-21 20:00] VITALS: BP 107/55
[2020-10-21] MEDS: ATORVASTATIN 10 MG TABLET GT SCH (21:05)
[2020-10-21] MEDS: SENNOSIDES 8.6 MG TABLET GT SCH (21:05)
[2020-10-21] MEDS: DONEPEZIL 5 MG TABLET PO SCH (21:05)
[2020-10-21] MEDS: RIFAMPIN 300 MG CAPSULE PO SCH (21:14)
[2020-10-22] VITALS (10 sets, daily range): BP systolic 68–120; BP diastolic 27–57
[2020-10-22] MEDS: BLOOD SUGAR DIAGNOSTIC 1 EACH STRIP IN SCH ×5 (00:16→23:49)
[2020-10-22] MEDS: INSULIN REGULAR, HUMAN 100 UNIT/ML 3 ML VIAL SQ PRN ×5 (00:18→23:13)
[2020-10-22] MEDS: NEPRO 1,000 ML BOTTLE GT PRN (01:18)
[2020-10-22] MEDS: ALBUTEROL SULFATE INH 18 GM HFA.AER.AD IH SCH ×4 (01:19→19:44)
--- NOTE | 2020-10-22 04:48 | NUR ---
RT TRACH CHANGE DONE DUE TO TRACH DISLODGE, SHILEY 6XLT INSERTED AND SECURED. NO ADVERSE REACTION. PT TOLERATING NEW TRACH WELL. BREATH SOUNDS CLEAR AND EQUAL. PT REMAIN ON MECH VENT ON NOTED SETTINGS. WILL CONTINUE TO MONITOR.
--- NOTE | 2020-10-22 07:24 | NUR ---
RN CLOSING NOTE PT LAYING IN BED. RESTING. PT WITH TRACH CONNECTED TO MECHANICAL VENT WITH THE FOLLOWING SETTINGS: AC16, FiO2- 40% TV 550, PEEP 5. AROUND 0400 TRACH WAS DISLOGED. RT WAS IN THE ROOM. REPLACED. CLEAN, INTACT. PATIENT WITH RIGHT AV FISTULA HEMODIALYSIS ACCESS, WITH IVF ON LEFT UPPER MIDLINE. AM LAB NOT TAKEN UNABLE TO ACCESS LINE TO GET BLOOD. TRIED WITH MIDLINE, WAS NOT ABLE TO GET BLOOD WELL. WITH RESTRAINT ON LEFT ARM PATIENT HAS THE TENDENCY TO PULL TUBES AND LINES. G TUBE CLEAN AND DRY. NO KINKS. WILL ADMINISTER ORDERED MEDICATIONS. SAFETY AD FALL PRECAUTIONS OBSERVED. WILL ENDORSE TO UPCOMING SHIFT. WILL CONTINUE TO MONITOR PATIENT. WILL CONTINUE PLAN OF CARE.
--- NOTE | 2020-10-22 07:45 | NUR ---
RN OPEN NOTES PATIENT IS NON VERBAL, OPENS EYES, IN BED WITH NO SIGNS OF DISTRESS ON VENTILATOR SETTINGS SHILEY 7 AC 16 FIO2 40% TV [address] AND PEEP 5[address] TELE MONITOR ST. IV L UA MIDLINE INTACT AND MAHESH AV FISTULA. G-TUBE INTACT FEEDING NEPHRO AT 55 ML/HR. SAFETY MEASURES ARE APPLIED, BED IS IN THE LOWEST POSITION, UI UX WEB DEVELOPER RAILS UP X 2, CALL WITHIN REACH, WILL CONTINUE TO MONITOR.
[2020-10-22] MEDS: FAMOTIDINE (20 MG) 20 MG TABLET GT SCH ×2 (08:21→16:45)
[2020-10-22] MEDS: FERROUS SULFATE UDC 300 MG/5 ML UDC GT SCH (08:21)
[2020-10-22] MEDS: ASCORBIC ACID 500 MG TABLET PO SCH (08:22)
[2020-10-22] MEDS: CHOLECALCIFEROL (VITAMIN D 3) 400 UNIT TABLET GT SCH (08:22)
[2020-10-22] MEDS: VIT B CMPLX 3/FA/VIT C/BIOTIN 1 TAB TABLET PO SCH (08:22)
[2020-10-22] MEDS: MIDODRINE HCL (5MG) 5 MG TABLET PO SCH ×3 (08:31→16:45)
[2020-10-22] MEDS: PROSOURCE / PROSTAT (PYXIS) 30 ML UDC GT SCH ×4 (08:31→21:59)
[2020-10-22] MEDS: INSULIN GLARGINE, 100 UNIT/ML CARTRIDGE SQ SCH ×2 (08:33→23:00)
[2020-10-22] MEDS: THERAHONEY GEL 1.5 OZ TUBE TP SCH (08:34)
[2020-10-22] MEDS: CLOTRIMAZOLE 1% 15 GM TUBE TP SCH ×2 (08:34→17:59)
--- NOTE | 2020-10-22 12:50 | NUR ---
Held medication Midodrine patient currently on dialysis. Will continue to monitor.
[2020-10-22 12:52] LABS: BASOPHILS # (AUTO) 0.1 /CMM (0.0-0.2); BASOPHILS % (AUTO) 0.9 % (0.0-2.0); EOSINOPHILS % (AUTO) 0.9 % (0.0-6.0); HEMATOCRIT 22 % (39-51); LYMPHOCYTES % (AUTO) 6.9 % (20.0-44.0); MEAN CORPUSCULAR HGB CONC 31 g/dl (31.0-36.0); MEAN CORPUSCULAR VOLUME 96 fL (80-96); MONOCYTES # (AUTO) 1.1 /CMM (0.1-1.30); MONOCYTES % (AUTO) 7.5 % (2.0-12.0); NEUTROPHILS # (AUTO) 11.9 /CMM (1.8-8.9); NEUTROPHILS % (AUTO) 83.8 % (43.0-81.0); PLATELET COUNT (AUTO) 457 /CMM (150-450); RED BLOOD CELL COUNT(AUTO) 2.28 MIL/uL (4.5-6.0); WHITE BLOOD COUNT (AUTO) 14.2 K/uL (4.3-11.0)
[2020-10-22] MEDS ORDERED: ALBUMIN 25% 25 GM in PREMIX 1 EA IV PRN (13:00)
[2020-10-22 13:28] LABS: CALCIUM, SERUM 9.3 mg/dL (8.5-10.1); CARBON DIOXIDE 26 mmol/L (21-32); CHLORIDE 100 mmol/L (98-107); MAGNESIUM 2.7 mg/dL (1.8-2.4); PHOSPHORUS 7.2 mg/dL (2.5-4.9); POTASSIUM 3.4 mmol/L (3.5-5.1); SODIUM SERUM 140 mmol/L (136-145)
[2020-10-22] MEDS: ALBUMIN 25% 50 GM in PREMIX 1 EA IV PRN (13:32)
[2020-10-22 13:59] LABS: HEMOGLOBIN 6.8 g/dL (13.5-17.5)
[2020-10-22 14:34] LABS: GLUCOSE 418 mg/dL (74-106); UREA NITROGEN, BLOOD 98 mg/dL (7-18)
[2020-10-22 14:49] LABS: BAND % (MANUAL) 5 % (0.0-5.0); LYMPHOCYTES % (MANUAL) 7 % (16-48); NEUTROPHILS % (MANUAL) 78 (42-76)
[2020-10-22 14:50] LABS: EOSINOPHILS % (MANUAL) 2 % (0-4); MONOCYTES % (MANUAL) 8 % (0-11.0)
[2020-10-22] MEDS: VANCOMYCIN POST DIALYSIS 500MG IV PRN ×2 (15:23)
[2020-10-22 17:28] LABS: IRON, SERUM 94 ug/dl (50-175); TOTAL IRON BINDING CAPACITY 113 ug/dl (250-450)
--- NOTE | 2020-10-22 20:03 | NUR ---
RN Closing Notes PATIENT IS NON VERBAL, OPENS EYES, IN BED WITH NO SIGNS OF DISTRESS ON VENTILATOR SETTINGS SHILEY 7 AC 16 FIO2 40% TV 550 AND PEEP 5. TELE MONITOR ST. IV L UA MIDLINE INTACT AND MAHESH AV FISTULA. G-TUBE INTACT FEEDING NEPHRO AT 55 ML/HR. ALL TREATMENTS AND MEDICATIONS WERE ADMINISTERED ANTICIPATED. PATIENT KEPT CLEAN AND DRY. SAFETY MEASURES ARE APPLIED, BED IS IN THE LOWEST POSITION, EXAM PROCTOR RAILS UP X 2, CALL WITHIN REACH, WILL CONTINUE TO MONITOR.
--- NOTE | 2020-10-22 20:09 | NUR ---
RN NOTES PATIENT IS NON VERBAL, OPENS EYES, IN BED WITH NO SIGNS OF DISTRESS ON VENTILATOR SETTINGS SHILEY 7 AC 16 FIO2 40% TV 550 AND PEEP 5. TELE MONITOR ST. IV L UA MIDLINE INTACT AND MAHESH AV FISTULA. G-TUBE INTACT FEEDING NEPHRO AT 55 ML/HR. CURRENTLY HAVING A BLOOD TRANSFUSION TOLERATING WELL. SAFETY MEASURES ARE APPLIED, BED IS IN THE LOWEST POSITION, SOAPING DEPARTMENT SUPERVISOR RAILS UP X 2, CALL WITHIN REACH, WILL CONTINUE TO MONITOR.
[2020-10-22 20:11] LABS: FERRITIN 83580 ng/mL (8-388)
--- NOTE | 2020-10-22 20:34 | NUR ---
RN NOTES BLOOD TRANSFUSION ENDED TOLERATED TRANSFUSION WELL WILL CONTINUE TO MONITOR.
[2020-10-22] MEDS: SENNOSIDES 8.6 MG TABLET GT SCH (21:58)
[2020-10-22] MEDS: ATORVASTATIN 10 MG TABLET GT SCH (21:58)
[2020-10-22] MEDS: RIFAMPIN 300 MG CAPSULE PO SCH (21:58)
[2020-10-22] MEDS: DONEPEZIL 5 MG TABLET PO SCH (21:58)
--- NOTE | 2020-10-22 23:25 | NUR ---
RN NOTES PER MD OKAY TO GIVE 8 UNITS OF INSULIN. WILL CONTINUE TO MONITOR.
[2020-10-23] VITALS (10 sets, daily range): BP systolic 80–150; BP diastolic 30–70
--- NOTE | 2020-10-23 05:21 | NUR ---
RN NOTES WOUND CARE PROVIDED TOLERATED WELL. WILL CONTINUE TO MONITOR.
--- NOTE | 2020-10-23 06:40 | NUR ---
RN NOTES PT BLOOD SUGAR CHECKED NO INSULIN COVERAGE PROVIDED PT IS NPO FOR MORNING PROCEDURE. WILL CONTINUE TO MONITOR
[2020-10-23] MEDS: BLOOD SUGAR DIAGNOSTIC 1 EACH STRIP IN SCH ×3 (07:05→17:22)
[2020-10-23 07:55] LABS: BASOPHILS % (AUTO) 0.2 % (0.0-2.0); EOSINOPHILS % (AUTO) 1.8 % (0.0-6.0); HEMATOCRIT 21 % (39-51); LYMPHOCYTES # (AUTO) 1.2 /CMM (0.8-4.8); MEAN CORPUSCULAR HGB CONC 33 g/dl (31.0-36.0); MEAN CORPUSCULAR VOLUME 95 fL (80-96); MONOCYTES # (AUTO) 0.7 /CMM (0.1-1.30); MONOCYTES % (AUTO) 6.8 % (2.0-12.0); NEUTROPHILS # (AUTO) 8.6 /CMM (1.8-8.9); NEUTROPHILS % (AUTO) 80.2 % (43.0-81.0); PLATELET COUNT (AUTO) 397 /CMM (150-450); WHITE BLOOD COUNT (AUTO) 10.7 K/uL (4.3-11.0)
--- NOTE | 2020-10-23 08:00 | NUR ---
RN Opening note Received patient in bed, awake, able to responds all stimuli, Pt does no c/o pain or distress. Skin is warm to touch keep clean/dry intact IV site, respiratory even and unlabored with ventilator, O2sat 98%. Kept locked bed with elevated HOB for aspiration precaution and ensure airway and lowest bed foe safety. Call light within reach, will continue to monitor.
[2020-10-23] MEDS: ALBUTEROL SULFATE INH 18 GM HFA.AER.AD IH SCH ×3 (08:16→20:19)
[2020-10-23] MEDS ORDERED: ANESTHESIA TRAY IN PYXIS 1 EA TRAY MC ONE (08:21)
[2020-10-23] MEDS ORDERED: BUPIVACAINE 0.5 % PF 150 MG/30 ML VIAL ONE (08:22)
[2020-10-23] MEDS ORDERED: BACITRACIN 50000 UNITS/VIAL ONE (08:22)
[2020-10-23 08:31] LABS: CALCIUM, SERUM 9.4 mg/dL (8.5-10.1); CARBON DIOXIDE 25 mmol/L (21-32); CHLORIDE 98 mmol/L (98-107); CREATININE 5.6 mg/dL (0.6-1.3); GLUCOSE 291 mg/dL (74-106); MAGNESIUM 2.4 mg/dL (1.8-2.4); PHOSPHORUS 3.7 mg/dL (2.5-4.9); SODIUM SERUM 137 mmol/L (136-145); UREA NITROGEN, BLOOD 73 mg/dL (7-18)
[2020-10-23 08:45] LABS: HEMOGLOBIN 6.9 g/dL (13.5-17.5)
[2020-10-23] MEDS: THERAHONEY GEL 1.5 OZ TUBE TP SCH (09:00)
[2020-10-23] MEDS: PROSOURCE / PROSTAT (PYXIS) 30 ML UDC GT SCH ×4 (09:00→21:39)
[2020-10-23] MEDS: INSULIN GLARGINE, 100 UNIT/ML CARTRIDGE SQ SCH (09:00)
[2020-10-23] MEDS: CLOTRIMAZOLE 1% 15 GM TUBE TP SCH ×2 (09:00→17:22)
[2020-10-23 09:46] LABS: POTASSIUM 2.5 mmol/L (3.5-5.1)
--- NOTE | 2020-10-23 10:20 | NUR ---
Patient left procedure for right knee arthroscopy in stable condition.
[2020-10-23] MEDS ORDERED: ALBUMIN 25% 25 GM in PREMIX 1 EA IV PRN (10:30)
--- NOTE | 2020-10-23 11:45 | NUR ---
Patient backed from OR, bp-v/s: 154/73, p-114, t-99.8, r-18, in stable condition. Will continue to monitor.
--- NOTE | 2020-10-23 12:00 | NUR ---
Patient pulled out IV and refusing reinsert IV line, also attempting pulled hanks cath, informed MD regarding above. Will continue to monitor for safety.
[2020-10-23] MEDS: CHOLECALCIFEROL (VITAMIN D 3) 400 UNIT TABLET GT SCH (12:48)
[2020-10-23] MEDS: FERROUS SULFATE UDC 300 MG/5 ML UDC GT SCH (12:48)
[2020-10-23] MEDS: ASCORBIC ACID 500 MG TABLET PO SCH (12:49)
[2020-10-23] MEDS: MIDODRINE HCL (5MG) 5 MG TABLET PO SCH ×3 (12:49→17:21)
[2020-10-23] MEDS: FAMOTIDINE (20 MG) 20 MG TABLET GT SCH ×2 (12:49→17:22)
[2020-10-23] MEDS: ACETAMINOPHEN 325 MG TABLET PO PRN (12:49)
[2020-10-23] MEDS: VIT B CMPLX 3/FA/VIT C/BIOTIN 1 TAB TABLET PO SCH (12:50)
[2020-10-23] MEDS: INSULIN REGULAR, HUMAN 100 UNIT/ML 3 ML VIAL SQ PRN ×2 (12:55→17:19)
[2020-10-23] MEDS ORDERED: IV LR 1000 ML 1,000 ML IV ONE (13:00)
[2020-10-23] MEDS: NEPRO 1,000 ML BOTTLE GT PRN (13:18)
--- NOTE | 2020-10-23 13:50 | NUR ---
Patient potassium level 2.5, MD made aware, no new order at this time.
--- NOTE | 2020-10-23 18:41 | NUR ---
RN closing Patient in bed resting, does no appears distress or discomfort. Skin is warm to touch, keep clean/dry, intact midline on left upper arm and changed dressing, patient s/p right knee arthroscopy, 5cc drainage from wound vac. Respiratory even and unlabored with vent machine O2sat 90-91%. Kept elevated HOB for ensure air way and aspiration precaution and lowest bed for safety. Call light within reach, will endorse naturopathic physician
--- NOTE | 2020-10-23 19:37 | NUR ---
RN NOTES Patient in bed resting, does no appears distress or discomfort. Skin is warm to touch, keep clean/dry, intact midline on left upper arm patent and intact. patient s/p right knee arthroscopy. Respiratory even and unlabored. Kept elevated HOB for ensure air way and aspiration precaution and lowest bed for safety. Call light within reach, will continue to monitor.
[2020-10-23] MEDS: SENNOSIDES 8.6 MG TABLET GT SCH (21:37)
[2020-10-23] MEDS: RIFAMPIN 300 MG CAPSULE PO SCH (21:37)
[2020-10-23] MEDS: DONEPEZIL 5 MG TABLET PO SCH (21:37)
[2020-10-23] MEDS: ATORVASTATIN 10 MG TABLET GT SCH (21:40)
[2020-10-24] MEDS: BLOOD SUGAR DIAGNOSTIC 1 EACH STRIP IN SCH ×4 (00:01→17:50)
[2020-10-24] MEDS: INSULIN REGULAR, HUMAN 100 UNIT/ML 3 ML VIAL SQ PRN ×4 (00:05→17:59)
[2020-10-24] MEDS: INSULIN GLARGINE, 100 UNIT/ML CARTRIDGE SQ SCH ×2 (00:07→09:46)
[2020-10-24] MEDS: ACETAMINOPHEN 325 MG TABLET PO PRN (00:43)
[2020-10-24 00:56] VITALS: BP 70/41
[2020-10-24] MEDS: ALBUTEROL SULFATE INH 18 GM HFA.AER.AD IH SCH ×3 (02:16→13:58)
[2020-10-24 04:00] VITALS: BP 96/48
--- NOTE | 2020-10-24 07:00 | NUR ---
RN NOTES Patient in bed resting, does no appears distress or discomfort. Skin is warm to touch, keep clean/dry, intact midline on left upper arm patent and intact. patient s/p right knee arthroscopy with 1ml of drainage during search strategist. wound care provided..Respiratory even and unlabored. Kept elevated HOB for ensure air way and aspiration precaution and lowest bed for safety. will endprse care to day shift..
--- NOTE | 2020-10-24 07:30 | NUR ---
TELE/RN OPENING NOTE Received patient in bed, nonverbal, opens eyes to touch and verbal stimulation. No s/s of any pain/discomfort at this time. Breathing even and non-labored on current vent settings, shiley 7, AC 16, TV 550, PEEP 5, FIO2% 40%. No cardiac distress noted, on tele monitor reading SR 96. JAMIE midline, patent and intact, and flushing well. R knee wound reservoir noted with serosanguinous and some purulent drainage of 1 cc. Bed locked to its lowest position, side rails x 2 up, bed alarm on. Will continue with current medical management.
[2020-10-24 08:00] VITALS: BP 111/61
[2020-10-24 08:00] LABS: BASOPHILS % (AUTO) 0.3 % (0.0-2.0); EOSINOPHILS % (AUTO) 2.6 % (0.0-6.0); HEMATOCRIT 24 % (39-51); HEMOGLOBIN 7.8 g/dL (13.5-17.5); LYMPHOCYTES % (AUTO) 11.4 % (20.0-44.0); MEAN CORPUSCULAR HGB CONC 32 g/dl (31.0-36.0); MEAN CORPUSCULAR VOLUME 95 fL (80-96); MONOCYTES # (AUTO) 0.9 /CMM (0.1-1.30); MONOCYTES % (AUTO) 9.6 % (2.0-12.0); NEUTROPHILS # (AUTO) 6.9 /CMM (1.8-8.9); NEUTROPHILS % (AUTO) 76.1 % (43.0-81.0); PLATELET COUNT (AUTO) 363 /CMM (150-450); RED BLOOD CELL COUNT(AUTO) 2.56 MIL/uL (4.5-6.0); WHITE BLOOD COUNT (AUTO) 9.1 K/uL (4.3-11.0)
[2020-10-24 08:26] LABS: CALCIUM, SERUM 9.1 mg/dL (8.5-10.1); CARBON DIOXIDE 24 mmol/L (21-32); CHLORIDE 98 mmol/L (98-107); CREATININE 6.3 mg/dL (0.6-1.3); GLUCOSE 314 mg/dL (74-106); MAGNESIUM 2.4 mg/dL (1.8-2.4); PHOSPHORUS 4.5 mg/dL (2.5-4.9); SODIUM SERUM 138 mmol/L (136-145)
[2020-10-24 08:30] LABS: POTASSIUM 2.7 mmol/L (3.5-5.1); UREA NITROGEN, BLOOD 80 mg/dL (7-18)
--- NOTE | 2020-10-24 08:30 | NUR ---
TELE/RN NOTE Lab reported critical result of potassium 2.7, notified Esther DE DIOS.
[2020-10-24] MEDS: FAMOTIDINE (20 MG) 20 MG TABLET GT SCH ×2 (09:16→17:49)
[2020-10-24] MEDS: FERROUS SULFATE UDC 300 MG/5 ML UDC GT SCH (09:16)
[2020-10-24] MEDS: CHOLECALCIFEROL (VITAMIN D 3) 400 UNIT TABLET GT SCH (09:16)
[2020-10-24] MEDS: ASCORBIC ACID 500 MG TABLET PO SCH (09:16)
[2020-10-24] MEDS: PROSOURCE / PROSTAT (PYXIS) 30 ML UDC GT SCH ×3 (09:17→17:50)
[2020-10-24] MEDS: MIDODRINE HCL (5MG) 5 MG TABLET PO SCH ×3 (09:17→17:49)
[2020-10-24] MEDS: CLOTRIMAZOLE 1% 15 GM TUBE TP SCH ×2 (09:17→17:50)
[2020-10-24] MEDS: THERAHONEY GEL 1.5 OZ TUBE TP SCH (09:19)
[2020-10-24] MEDS: NEPRO 1,000 ML BOTTLE GT PRN (09:27)
[2020-10-24] MEDS: VIT B CMPLX 3/FA/VIT C/BIOTIN 1 TAB TABLET PO SCH (09:27)
[2020-10-24] MEDS: POTASSIUM CHLORIDE 20 MEQ POWDER PACKET GT SCH ×2 (10:42→11:45)
[2020-10-24 12:00] VITALS: BP 107/60
--- NOTE | 2020-10-24 12:00 | NUR ---
TELE/RN NOTE HD started, HD nurse infusing albumin as well. VSS. Will continue to monitor.
--- NOTE | 2020-10-24 15:00 | NUR ---
TELE/RN NOTE HD finished, patient's VS remained stable. No acute distress noted. 1.5 L out.
[2020-10-24] MEDS ORDERED: RXVAN XX (15:20)
[2020-10-24] MEDS ORDERED: VANC500F2 IV ×2 (15:20→15:23)
--- NOTE | 2020-10-24 15:45 | NUR ---
TELE/RN NOTE Called [facility] 3 times and left our unit's number to follow up if patient has had their flu and pneumococcal vaccination, no response noted.
[2020-10-24 17:49] VITALS: BP 110/62
--- NOTE | 2020-10-24 18:15 | NUR ---
TELE/DRYWALL HANGER FRAMER NOTE Patient remained stable throughout shift, VSS, afebrile, no acute distress noted. Non verbal, opens eyes to tactile and verbal stimulation. No s/s of pain/discomfort at this time. Breathing even and non-labored on current vent settings, Shiley 7, AC 16, FIO2 40%, TV 550, PEEP 5. No cardiac distress noted. MAHESH AV fistula noted with bruit and thrill. IV access removed on JAMIE midline #18 with catheter intact. No s/s of infection, infiltration, or infection noted on site. Photos of skin impairments taken and placed on chart. Sacral-buttock picture unable to read by photographer model, but wound did not progress worse, still looks the same as the previous photo. Circulation and sensation from all peripheral extremities intact. Gave report to Ursula from [facility] regarding discharge instructions, answered all their questions to their satisfaction, she verbalized understanding. Patient left facility safely with 3 box stamper via [employer].
== END 2020-10-24 18:40 | DRG 853 ==
LOC: ER 14:05 → MEDSG1 20:03 → TELE1 22:35 → TELE 10-11 19:18
PROVIDERS: ADMIT Nurse Practitioner Acute Care; ATTEND Nurse Practitioner Acute Care
PROC: 5A1955Z Respiratory Ventilation, Greater than 96 Consecutive Hours (ICD-10-PCS; principal; 2020-10-10)
PROC: 05H533Z Insertion of Infusion Device into Right Subclavian Vein, Percutaneous Approach (ICD-10-PCS; 2020-10-11)
PROC: B546ZZA Ultrasonography of Right Subclavian Vein, Guidance (ICD-10-PCS; 2020-10-11)
PROC: 5A1D70Z Performance of Urinary Filtration, Intermittent, Less than 6 Hours Per Day (ICD-10-PCS; 2020-10-11)
PROC: 0LBN0ZZ Excision of Right Lower Leg Tendon, Open Approach (ICD-10-PCS; 2020-10-12)
PROC: 30233N1 Transfusion of Nonautologous Red Blood Cells into Peripheral Vein, Percutaneous Approach (ICD-10-PCS; 2020-10-18)
PROC: 0SBC4ZZ Excision of Right Knee Joint, Percutaneous Endoscopic Approach (ICD-10-PCS; 2020-10-23)
PROC: 3E1U48Z Irrigation of Joints using Irrigating Substance, Percutaneous Endoscopic Approach (ICD-10-PCS; 2020-10-23)
DX: A41.02 Sepsis due to Methicillin resistant Staphylococcus aureus (principal); N18.6 End stage renal disease; J18.9 Pneumonia, unspecified organism; E11.10 Type 2 diabetes mellitus with ketoacidosis without coma; E87.1 Hypo-osmolality and hyponatremia; G93.40 Encephalopathy, unspecified; I12.0 Hypertensive chronic kidney disease with stage 5 chronic kidney disease or end stage renal disease; Z99.11 Dependence on respirator [ventilator] status; J96.10 Chronic respiratory failure, unspecified whether with hypoxia or hypercapnia; J98.11 Atelectasis; N39.0 Urinary tract infection, site not specified; L97.918 Non-pressure chronic ulcer of unspecified part of right lower leg with other specified severity; M00.9 Pyogenic arthritis, unspecified; G30.9 Alzheimer's disease, unspecified; F02.80 Dementia in other diseases classified elsewhere, unspecified severity, without behavioral disturbance, psychotic disturbance, mood disturbance, and anxiety; E11.22 Type 2 diabetes mellitus with diabetic chronic kidney disease; D63.8 Anemia in other chronic diseases classified elsewhere; I25.10 Atherosclerotic heart disease of native coronary artery without angina pectoris; R65.20 Severe sepsis without septic shock; Z20.822 Contact with and (suspected) exposure to COVID-19; E11.40 Type 2 diabetes mellitus with diabetic neuropathy, unspecified; E78.5 Hyperlipidemia, unspecified; E87.6 Hypokalemia; Z93.1 Gastrostomy status; Z79.4 Long term (current) use of insulin; Z93.0 Tracheostomy status; Z85.528 Personal history of other malignant neoplasm of kidney; R13.10 Dysphagia, unspecified; Z99.2 Dependence on renal dialysis; N25.0 Renal osteodystrophy; L85.3 Xerosis cutis; E11.622 Type 2 diabetes mellitus with other skin ulcer; Z96.651 Presence of right artificial knee joint; E11.65 Type 2 diabetes mellitus with hyperglycemia; L89.159 Pressure ulcer of sacral region, unspecified stage
CPT/HCPCS: 31720; 36410; 36415; 71045-TC; 73564-TC; 74018; 80048-TC; 80061-TC; 80076-TC; 80170-TC; 80202-TC; 81001; 82140-TC; 82728-TC; 82962-TC; 83540-TC; 83605-TC; 83735-TC; 84100-TC; 84484-TC; 85025-TC; 85730-TC; 86850-TC; 87040-TC; 87070-TC; 87081-TC; 87086-TC; 87186-TC; 90935-TC; 93307-TC; 93971-TC; 94003-TC; 94640; 94760-TC; 94762-TC; 94799-TC; 99082-TC; A4216; A4217; A4623; A6253; A6403; A7526; A9563; C9803; G0378; J0690; J0696; J1580; J1644; J1815; J2405; J2543; J2704; J2765; J3370; J3490; J7030; J7040; J7050; J7060; J7120; P9016-BL; P9047; U0003

== ENCOUNTER 2020-11-15 14:20 | Inpatient (IN) | payer MEDICARE, MEDICAID ==
[2020-11-15] VITALS (21 sets, daily range): BP systolic 82–145; BP diastolic 40–79
[~2020-11-15] VITALS: Ht 182.9 cm; Wt 95.7 kg
[~2020-11-15 14:20] MED LIST changes: +ALBU8.5H8 IH; +COLL30OI TP; +FERR300L GT; -FERR325T23 GT; -GLUC1KIT IM; -HYDR-3974 GT; +HYDR-4384 GT; +IPRA0.2S9 IH; -NITR0.4T48 SL; +VANC500F2 IV; -ZINC220T4 GT
--- NOTE | 2020-11-15 14:40 | NUR ---
labs drawn and order placed for PCR Covid test to be done
[2020-11-15] MEDS ORDERED: OMEP20TA5 GT (14:41)
[2020-11-15] MEDS ORDERED: PIPE3.379 IV (14:41)
[2020-11-15] MEDS ORDERED: POLY17PO4 GT (14:41)
[2020-11-15] MEDS ORDERED: HEPA100D33 SUBCUT (14:41)
[2020-11-15] MEDS ORDERED: SIME80TA15 GT (14:41)
[2020-11-15] MEDS ORDERED: SULF1TAB47 GT (14:41)
[2020-11-15] MEDS ORDERED: AMIN887L GT (14:41)
[2020-11-15] MEDS ORDERED: VANC50SO3 GT (14:41)
[2020-11-15] MEDS ORDERED: PIPERACILLIN /TAZOBACTAM 3.375 G in IV D5W 50 ML IV ONE (15:00)
[2020-11-15] MEDS ORDERED: VANCOMYCIN 1 GM in IV D5W 250 ML IV ONE (15:00)
--- NOTE | 2020-11-15 15:00 | NUR ---
pt taken to CT of the head
[2020-11-15 15:05] LABS: BASOPHILS % (AUTO) 0.3 % (0.0-2.0); EOSINOPHILS % (AUTO) 3.3 % (0.0-6.0); HEMATOCRIT 33 % (39-51); HEMOGLOBIN 10.4 g/dL (13.5-17.5); LYMPHOCYTES # (AUTO) 2.3 /CMM (0.8-4.8); LYMPHOCYTES % (AUTO) 14.4 % (20.0-44.0); MEAN CORPUSCULAR HGB CONC 32 g/dl (31.0-36.0); MEAN CORPUSCULAR VOLUME 101 fL (80-96); MONOCYTES # (AUTO) 1.2 /CMM (0.1-1.30); MONOCYTES % (AUTO) 7.4 % (2.0-12.0); NEUTROPHILS # (AUTO) 11.9 /CMM (1.8-8.9); NEUTROPHILS % (AUTO) 74.6 % (43.0-81.0); PLATELET COUNT (AUTO) 235 /CMM (150-450); RED BLOOD CELL COUNT(AUTO) 3.24 MIL/uL (4.5-6.0)
--- NOTE | 2020-11-15 15:07 | NUR ---
CALLED [facility] TO OPEN CASE FOR ADMISSION. WILL CALL BACK WHEN READY TO PRESENT.
--- NOTE | 2020-11-15 15:20 | NUR ---
return from CT of head-pt tolerated well
[2020-11-15 15:26] LABS: CALCIUM, SERUM 9.5 mg/dL (8.5-10.1); CARBON DIOXIDE 25 mmol/L (21-32); CHLORIDE 96 mmol/L (98-107); CREATININE 4.1 mg/dL (0.6-1.3); GLUCOSE 221 mg/dL (74-106); POTASSIUM 3.2 mmol/L (3.5-5.1); SODIUM SERUM 136 mmol/L (136-145); UREA NITROGEN, BLOOD 31 mg/dL (7-18)
--- NOTE | 2020-11-15 15:30 | NUR ---
antibiotics hung as ordered
[2020-11-15 15:39] LABS: ALANINE AMINOTRANSFERASE 32 U/L (12-78); ALBUMIN 2.9 g/dL (3.4-5.0); ALCOHOL, BLOOD < 3 mg/dL (0-0); ALKALINE PHOSPHATASE 333 U/L (46-116); ASPARTATE AMINOTRANSFERASE 34 U/L (15-37); B-TYPE NATRIURETIC PEPTIDE 4376 PG/ML (0-125); BILIRUBIN,TOTAL 0.5 mg/dL (0.2-1.0)
[2020-11-15 15:41] LABS: ACETAMINOPHEN < 0 ug/ml (10-30)
[2020-11-15 15:42] LABS: D-DIMER 3.5 mg/L(FEU (0.17-0.50)
[2020-11-15 15:47] LABS: SERUM AMMONIA 7 umol/L (11-32)
[2020-11-15 15:52] LABS: TOTAL PROTEIN, SERUM 8.4 g/dL (6.4-8.2)
[2020-11-15 16:23] LABS: CREATINE KINASE, TOTAL 11 U/L (39-308); FERRITIN 3179 ng/mL (8-388); THYROID STIMULATING HORMONE 4.283 uIU/mL (0.358-3.74)
[2020-11-15 16:25] LABS: C-REACTIVE PROTEIN 5.3 mg/dL (0.0-0.9)
--- NOTE | 2020-11-15 17:00 | NUR ---
spoke with md regarding a slight bp drop systolic and if needed to get levo on board -md aware
--- NOTE | 2020-11-15 17:00 | NUR ---
Covid 19-sent
--- NOTE | 2020-11-15 17:10 | NUR ---
spoke to md law for restraints orders-pt increase in awareness and puts his left arm to rest on the ventilator tubing -advised several times but pt confused -order for restraints given by
[2020-11-15] MEDS ORDERED: ONDANSETRON HCL/PF 4 MG/2 ML VIAL IVP PRN (17:30)
[2020-11-15] MEDS ORDERED: NOREPINEPHRINE 8 MG in IV NS 0.9% 242 ML IV PRN (17:30)
[2020-11-15] MEDS ORDERED: MORPHINE SULFATE INJ 2 MG/ML DISP.SYRIN IV PRN (17:30)
[2020-11-15] MEDS ORDERED: Z GUARD REMEDY 2 OZ OINT TP PRN (17:30)
[2020-11-15] MEDS ORDERED: ALBUTEROL FS 2.5 MG/0.5 ML VIAL.NEB NEB PRN (17:30)
[2020-11-15] MEDS ORDERED: ACETAMINOPHEN 650 MG/SUPP.RECT RC PRN (17:30)
[2020-11-15] MEDS ORDERED: LORAZEPAM INJ 2 MG/ML VIAL IV PRN (17:30)
--- NOTE | 2020-11-15 17:32 | NUR ---
report given to clay burner Ernesto
[2020-11-15] MEDS ORDERED: DEXTROSE 50%-WATER 50 ML DISP.SYRIN IV PRN (18:00)
--- NOTE | 2020-11-15 18:00 | NUR ---
RN INITIAL NOTES RECEIVED PT FROM ER, PT LETHARGIC, MOVES TO PAIN. TRACH IN PLACE. NO RESPIRATORY DISTRESS NOTED. NO SIGNS OF PAIN NOTED. HOB ELEVATED. JAMIE PICC AND LEFT FEMORAL HD CATH IN PLACE. PEG IN PLACE, CLAMPED. SKIN ASSESSMENT DONE. PICTURES TAKEN AND PLACED IN THE CHART. AGNIESZKA YU NP AWARE OF ADMISSION. ADMISSION ORDERS NOTED. WILL CLOSELY MONITOR
[2020-11-15 18:27] LABS: CALCIUM, SERUM 9.3 mg/dL (8.5-10.1); CARBON DIOXIDE 24 mmol/L (21-32); CHLORIDE 97 mmol/L (98-107); CREATININE 4.4 mg/dL (0.6-1.3); GLUCOSE 222 mg/dL (74-106); POTASSIUM 3.2 mmol/L (3.5-5.1); SODIUM SERUM 135 mmol/L (136-145); UREA NITROGEN, BLOOD 34 mg/dL (7-18)
[2020-11-15] MEDS: BLOOD SUGAR DIAGNOSTIC 1 EACH STRIP IN SCH ×2 (18:49→23:47)
[2020-11-15] MEDS ORDERED: VANCOMYCIN 500 MG in IV D5W 100 ML IV PRN (19:00)
[2020-11-15] MEDS ORDERED: PIPERACILLIN /TAZOBACTAM 3.375 G in IV D5W 100 ML IV SCH (19:00)
--- NOTE | 2020-11-15 19:11 | NUR ---
MACHINIST GENERAL OPENING NOTES: Rec'd pt in bed, lethargic and confused. On trach and mechanical ventilation tolerating settings well. No resp distress noted at this time. ST on tele monitor. JAMIE PICC line patent and flushed w/ Levo infusing at 0.1mcg/kg. Will titrate per protocol. GT site patent, flushed and verified. Left soft wrist restraint in place. Left femoral HD cath noted. Ley catheter in place, pt anuric. Safety measures in place. Will continue to monitor.
--- NOTE | 2020-11-15 19:59 | NUR ---
Patient received on full ventilatory support with Shiley 6 XLT trach. AC 26 450 40% Fi02 Peep 5. Sxn PRN with little secretions. Airway is patent, ambu bag on bedside. Vent alarms audible and plugged into red outlet.
[2020-11-15] MEDS: HYDROCORTISONE SOD SUCCINATE 100 MG/2 ML VIAL IV SCH (20:13)
[2020-11-15] MEDS: HEPARIN SODIUM, PORCINE 5000 UNITS/1 ML VIAL SQ SCH (20:15)
--- NOTE | 2020-11-15 20:34 | NUR ---
TOOL POLISHER NOTE: Pulse ox not working, changed wires and pulse ox location x2. Charge nurse Cristina and RT aware. RT to check pulse ox with portable finger monitor.
--- NOTE | 2020-11-15 21:09 | NUR ---
COMMERCIAL DRIVER NOTE: RT Sharmaine brought up portable O2 monitor. Pt satting at 100% on ordered vent settings. Will continue to monitor.
--- NOTE | 2020-11-15 21:45 | NUR ---
LUMBER SCALER NOTE: Rec'd call from lab, urine that was collected earlier not enough. Pt anuric, will attempt to collect urine again.
[2020-11-15] MEDS ORDERED: CEFTRIAXONE 1 G in IV D5W 50 ML IV SCH (22:00)
[2020-11-15] MEDS ORDERED: NEPRO 1,000 ML BOTTLE GT PRN (22:30)
--- NOTE | 2020-11-15 22:31 | NUR ---
ROUGE PRESSER NOTE: Pt has POLST that states code status as DNR. Pt currently full code. Spoke w/ pt's responsible constitution party Ele Schneider who stated pt's code status should be DNR, witnessed by ANNABEL Zhu. [id number]: Paged intervention manager Dr. Schroeder and made him aware of situation. Gave ok to change code status. Code status changed. coordinator mining products aware.
[2020-11-15] MEDS: INSULIN REGULAR, HUMAN 100 UNIT/ML 3 ML VIAL SQ PRN (23:47)
[2020-11-16] VITALS (70 sets, daily range): BP systolic 71–152; BP diastolic 41–91
[2020-11-16] MEDS ORDERED: PIPERACILLIN /TAZOBACTAM 3.375 G in IV D5W 50 ML IV SCH ×2
[2020-11-16 04:30] LABS: BASOPHILS % (AUTO) 0.3 % (0.0-2.0); EOSINOPHILS % (AUTO) 3.7 % (0.0-6.0); HEMATOCRIT 27 % (39-51); HEMOGLOBIN 8.9 g/dL (13.5-17.5); LYMPHOCYTES % (AUTO) 23.1 % (20.0-44.0); MEAN CORPUSCULAR HGB CONC 33 g/dl (31.0-36.0); MEAN CORPUSCULAR VOLUME 100 fL (80-96); MONOCYTES # (AUTO) 0.9 /CMM (0.1-1.30); MONOCYTES % (AUTO) 10.2 % (2.0-12.0); NEUTROPHILS # (AUTO) 5.4 /CMM (1.8-8.9); NEUTROPHILS % (AUTO) 62.7 % (43.0-81.0); PLATELET COUNT (AUTO) 187 /CMM (150-450); RED BLOOD CELL COUNT(AUTO) 2.72 MIL/uL (4.5-6.0); WHITE BLOOD COUNT (AUTO) 8.6 K/uL (4.3-11.0)
[2020-11-16 04:41] LABS: CALCIUM, SERUM 9.6 mg/dL (8.5-10.1); CARBON DIOXIDE 25 mmol/L (21-32); CHLORIDE 98 mmol/L (98-107); CREATININE 4.7 mg/dL (0.6-1.3); GLUCOSE 163 mg/dL (74-106); MAGNESIUM 2.1 mg/dL (1.8-2.4); PHOSPHORUS 4.4 mg/dL (2.5-4.9); POTASSIUM 3.2 mmol/L (3.5-5.1); SODIUM SERUM 137 mmol/L (136-145); UREA NITROGEN, BLOOD 37 mg/dL (7-18)
[2020-11-16] MEDS: HYDROCORTISONE SOD SUCCINATE 100 MG/2 ML VIAL IV SCH ×2 (05:23→12:21)
[2020-11-16] MEDS: BLOOD SUGAR DIAGNOSTIC 1 EACH STRIP IN SCH ×3 (05:33→17:37)
[2020-11-16] MEDS: INSULIN REGULAR, HUMAN 100 UNIT/ML 3 ML VIAL SQ PRN ×3 (05:38→17:36)
--- NOTE | 2020-11-16 07:05 | NUR ---
RN NOTES RECEIVED PT ON BED, ALERT/ DOES NOT FOLLOW COMMAND, TRACH DEPENDENT, TOLERATING VENT SETTING WELL, ON TELE SR- ST, HR IN 100'S , L UPPER ARM PICC LINE SITE AND LEFT FEMORAL HD SITE CLEAN,DRY AND INTACT, PT ON LEVO AT .02 MCG/KG/MIN. TF AT 50CC/HR RUNNING, NO RESIDUAL NOTED, MORTON HAS NO URINE OUTPUT , SR UP x3, CALL LIGHT WITHIN EASY REACH, BED LOCKED AND IN LOWEST POSITION, CONTINUE TO MONITOR.
[2020-11-16 08:19] LABS: ABG BASE EXCESS 0.2 mmol/L; ABG OXYGEN SATURATION 95.1 % (92.0-98.5); ABG PCO2 33.4 mmHg (35.0-45.0); ABG PH 7.467 (7.350-7.450); ABG PO2 73.2 mmHg (75.0-100.0); AaDO2 173.6 mmHg; COHb 0.5 % (0.5-1.5); MetHb 0.1 % (0.0-1.5); O2Hb 94.5 % (94.0-97.0); PEEP,BG 5 cm H2O; SITE, ABG Left Radial; VENT MODE, BG AC 40%; VT, ABG 450 mL
[2020-11-16] MEDS: HEPARIN SODIUM, PORCINE 5000 UNITS/1 ML VIAL SQ SCH (08:23)
[2020-11-16] MEDS ORDERED: POTASSIUM CHLORIDE 20 MEQ POWDER PACKET GT SCH (08:30)
--- NOTE | 2020-11-16 08:43 | NUR ---
WOUND CARE CONSULT: REVIEWED CHART, NURSING DOCUMENTATION AND PHOTOS WHICH INDICATE SACRAL AND BUTTOCK SCARRING WITH SOME OPEN AREAS, RT THUMB AND FINGERS WITH DRY WOUND/DISCOLORATION AND LOWER EXTREMITY WOUNDS, PRESENT ON ADMISSION. RECOMMEND SURGICAL AND DPM CONSULTS. DR MILLER AND DR WILLAMS NOTIFIED OF CONSULT REQUESTS. RECOMMENDATIONS MADE FOR SKIN PROTECTION. DISCUSSED WITH NURSING STAFF. PT IS ON [place] ISOFLEX LOW AIRLOSS BED. MD IN AGREEMENT WITH PLAN OF CARE.
[2020-11-16] MEDS ORDERED: PANTOPRAZOLE 40 MG VIAL IV SCH (09:00)
[2020-11-16] MEDS ORDERED: ALTEPLASE CATHFLO 2 MG/VIAL XX ONE ×2 (10:30→12:30)
[2020-11-16] MEDS: FLUDROCORTISONE 0.1 MG TABLET GT SCH ×2 (12:19→17:01)
--- NOTE | 2020-11-16 14:00 | NUR ---
RN NOTES UNABLE TO FLUSH LEFT ARM PICC LINE DOUBLE LUMENS . DR EVANS NOTIFED, ORDER RECEIVED FOR CATHFLO.
--- NOTE | 2020-11-16 16:00 | NUR ---
RN NOTES LEFT UPPER ARM PICC LINE INTACT AND PATENT AT THIS TIME.
--- NOTE | 2020-11-16 18:25 | NUR ---
RN NOTES REPORT GIVEN TO SAVAGE JIN AT [facility] FOR CONTINUITY OF CARE
--- NOTE | 2020-11-16 18:41 | NUR ---
RN NOTES NO SIGNIFICANT CHANGES NOTED ON THIS SHIFT, WILL ENDORSE TO FISHER TROT LINE NURSE FOR CONTINUITY OF CARE.
--- NOTE | 2020-11-16 19:40 | NUR ---
TUBING MILL SETTER: REPORT GIVEN TO ANNABEL YOUSSEF FROM [facility] FOR TRANSFER TO [facility] CALLED AND NOTIFIED RESPONSIBLE DEMOCRAT YVON MORGAN. ENDORSED PT. WITHOUT ANY BELONGINGS AND IN STABLE CONDITION. NOTED PORTABLE VENTILATOR AT BED SIDE FROM [facility] UPON ADMISSION. WILL ENDORSE TO RT FOR SAFEKEEPING.
--- NOTE | 2020-11-16 20:10 | NUR ---
WORKFORCE MANAGEMENT COORDINATOR: PT TRANSFERRED TO [facility] IN STABLE CONDITION. REPORT GIVEN TO ANNABEL RÍOS.
[2020-11-17] MEDS ORDERED: THERAHONEY GEL 1.5 OZ TUBE TP SCH (09:00)
[2020-11-19 12:06] LABS: HEPATITIS Be AB Negative (Negative)
== END 2020-11-16 20:10 | disposition short-term general hospital (02) | DRG 871 ==
LOC: ER 14:21 → ICU 17:50
PROVIDERS: ADMIT Nurse Practitioner Acute Care; ATTEND Internal Medicine
PROC: 5A1945Z Respiratory Ventilation, 24-96 Consecutive Hours (ICD-10-PCS; principal; 2020-11-15)
PROC: 5A1D70Z Performance of Urinary Filtration, Intermittent, Less than 6 Hours Per Day (ICD-10-PCS; 2020-11-16)
DX: A41.9 Sepsis, unspecified organism (principal); N18.6 End stage renal disease; R65.21 Severe sepsis with septic shock; G93.41 Metabolic encephalopathy; J18.9 Pneumonia, unspecified organism; J96.22 Acute and chronic respiratory failure with hypercapnia; J96.21 Acute and chronic respiratory failure with hypoxia; I69.351 Hemiplegia and hemiparesis following cerebral infarction affecting right dominant side; I12.0 Hypertensive chronic kidney disease with stage 5 chronic kidney disease or end stage renal disease; Z99.11 Dependence on respirator [ventilator] status; E87.2 Acidosis; E27.40 Unspecified adrenocortical insufficiency; L97.819 Non-pressure chronic ulcer of other part of right lower leg with unspecified severity; E11.52 Type 2 diabetes mellitus with diabetic peripheral angiopathy with gangrene; I96 Gangrene, not elsewhere classified; J95.03 Malfunction of tracheostomy stoma; E11.22 Type 2 diabetes mellitus with diabetic chronic kidney disease; D63.8 Anemia in other chronic diseases classified elsewhere; E11.40 Type 2 diabetes mellitus with diabetic neuropathy, unspecified; E78.5 Hyperlipidemia, unspecified; G30.9 Alzheimer's disease, unspecified; F02.80 Dementia in other diseases classified elsewhere, unspecified severity, without behavioral disturbance, psychotic disturbance, mood disturbance, and anxiety; I25.10 Atherosclerotic heart disease of native coronary artery without angina pectoris; Z79.4 Long term (current) use of insulin; Z87.891 Personal history of nicotine dependence; J32.0 Chronic maxillary sinusitis; Z99.2 Dependence on renal dialysis; Z93.1 Gastrostomy status; Z86.14 Personal history of Methicillin resistant Staphylococcus aureus infection; E87.6 Hypokalemia; R13.10 Dysphagia, unspecified; N25.0 Renal osteodystrophy; Z85.528 Personal history of other malignant neoplasm of kidney; Z90.5 Acquired absence of kidney; E11.622 Type 2 diabetes mellitus with other skin ulcer; L85.3 Xerosis cutis; L89.150 Pressure ulcer of sacral region, unstageable; Y84.8 Other medical procedures as the cause of abnormal reaction of the patient, or of later complication, without mention of misadventure at the time of the procedure; Y72.8 Miscellaneous otorhinolaryngological devices associated with adverse incidents, not elsewhere classified; Y92.129 Unspecified place in nursing home as the place of occurrence of the external cause; Z20.822 Contact with and (suspected) exposure to COVID-19
CPT/HCPCS: 31720; 36415; 36600; 70450-TC; 71045-TC; 80048-TC; 80053-TC; 80202-TC; 82140-TC; 82533; 82550-TC; 82728-TC; 82803-TC; 82962-TC; 83605-TC; 83615-TC; 83735-TC; 83880; 84100-TC; 84443-TC; 84484-TC; 85025-TC; 85378-TC; 85730-TC; 86140-TC; 86707; 87040-TC; 87081-TC; 87086-TC; 87186-TC; 87350; 90935-TC; 94002-TC; 94003-TC; 94760-TC; 99082-TC; C9113; G0378; G0480; J0696; J1644; J1720; J1815; J2060; J2543; J2997; J3370; J7050; J7060; U0003